=== PATIENT | female | born 1930 | race Caucasian/White ===

== ENCOUNTER → 2017-04-11 | Outpatient (CLI) | payer MEDICARE ==
[~2017-04-11] MED LIST: ANOR1AER INH; AUGM875T28 PO; CALCTAB68 PO; MELO7.5T7 PO; PRED10TA PO; PRED20TA PO; PROAAER10 INH
--- NOTE | 2017-04-11 10:18 | REP ---
PA and lateral chest: Comparison 03/19/2016. The lung douglas are hyperinflated, as previously compatible with COPD, requiring clinical confirmation. There are no infiltrates, effusions or masses. The patient is rotated. Cardiac size is normal. There is demineralization and kyphosis, unchanged. The irineo, mediastinum, and bony thorax are otherwise unremarkable and unchanged. Impression: There is no interval change. There are no acute cardiopulmonary findings. Chronic hyperinflation is again identified. Signed by Mati Domínguez MD 04/11/2017 10:10 A
== END ==
LOC: M RAD 09:26
PROVIDERS: ATTEND Internal Medicine Pulmonary Disease
DX: J44.9 Chronic obstructive pulmonary disease, unspecified (principal)

== ENCOUNTER → 2018-06-25 | Outpatient (REF) | payer MEDICARE | LOC: M LAB REF 18:24 | DX: D04.62 Carcinoma in situ of skin of left upper limb, including shoulder (principal); L57.0 Actinic keratosis | CPT/HCPCS: 88305 ==

== ENCOUNTER → 2019-01-24 | Outpatient (REF) | payer MEDICARE ==
[~2019-01-24] MED LIST changes: +PRED-351 PO; -PRED10TA PO
== END ==
LOC: M SFHCPLAZ 17:35
PROVIDERS: ATTEND Dermatology
DX: C44.612 Basal cell carcinoma of skin of right upper limb, including shoulder (principal); L82.0 Inflamed seborrheic keratosis

== ENCOUNTER 2019-02-02 14:08 | Emergency (ER) | payer MEDICARE ==
[~2019-02-02] VITALS: Ht 152.4 cm; Wt 50.0 kg
--- NOTE | 2019-02-02 14:58 | REP ---
Clinical: Trauma/injury. Technique: AP, lateral, bilateral oblique views of the left third digit. Findings: Swelling and underlying arthritic degenerative changes are appreciated. No obvious acute fracture or dislocation identified. Mild subluxation at the distal interphalangeal joint cannot be excluded and should be correlated with mechanism of injury. Impression: Swelling. No obvious acute fracture. Electronically Signed by Stevie Patel MD 02/02/2019 02:50 P
[2019-02-02 15:33] VITALS: BP 143/74
== END 2019-02-02 15:49 | disposition home or self-care (01) ==
LOC: M ED 14:08
DX: S60.222A Contusion of left hand, initial encounter (principal); W23.0XXA Caught, crushed, jammed, or pinched between moving objects, initial encounter; Y92.810 Car as the place of occurrence of the external cause; I95.9 Hypotension, unspecified; Z79.899 Other long term (current) drug therapy

== ENCOUNTER → 2019-06-10 | Outpatient (REF) | payer MEDICARE ==
[~2019-06-10] MED LIST changes: +ADVI200T17 PO; +AMIO200T PO; +DIGO0.123 PO; +ONDA-83 PO; +TRAM50TA2 PO; +VITACHTA PO; +XARE10TA PO; +XARE15TA PO
== END ==
LOC: M LAB REF 16:44
PROVIDERS: ATTEND Nurse Practitioner Adult Health
DX: E03.9 Hypothyroidism, unspecified (principal)

== ENCOUNTER → 2019-06-11 | Outpatient (REF) | payer MEDICARE ==
[~2019-06-11] MED LIST changes: -ADVI200T17 PO; -AMIO200T PO; -DIGO0.123 PO; -ONDA-83 PO; -TRAM50TA2 PO; -VITACHTA PO; -XARE10TA PO; -XARE15TA PO
== END ==
LOC: M SFHCPLAZ 10:04
PROVIDERS: ATTEND Dermatology
DX: C44.612 Basal cell carcinoma of skin of right upper limb, including shoulder (principal)

== ENCOUNTER 2019-08-07 01:29 | Inpatient (IN) | payer MEDICARE ==
[~2019-08-07] VITALS: Ht 152.4 cm; Wt 49.0 kg
[2019-08-07] MEDS ORDERED: NS 1,000 ML IV SCH (02:01)
[2019-08-07] MEDS ORDERED: ONDANSETRON 4MG/2ML VIAL (J2405) IV ONE (02:15)
[2019-08-07] MEDS ORDERED: MORPHINE 2 MG/ML 1ML VIAL (J2270) IV ONE (02:15)
[2019-08-07 02:34] LABS: BASO % 0.2 % (0.0-1.0); EOS % 0.1 % (0.0-3.0); HEMATOCRIT 38.1 % (36.0-47.0); LYMPH % 8.8 % (24.0-44.0); MEAN CORPUSCULAR HEMOGLOBIN 32.9 pg (27.0-33.0); MEAN CORPUSCULAR HGB CONC 31.5 g/dl (32.0-36.5); MEAN CORPUSCULAR VOLUME 104.4 fl (80.0-96.0); MONO # 0.6 10^3/uL (0.0-0.8); MONO % 5.2 % (0.0-5.0); NEUTROPHILS # 9.3 10^3/uL (1.5-8.5); NEUTROPHILS % 85.2 % (36.0-66.0); PLATELET COUNT, AUTOMATED 267 10^3/uL (150-450); RED BLOOD COUNT 3.65 10^6/uL (4.00-5.40)
[2019-08-07 02:45] LABS: INR 1.04; PROTHROMBIN TIME 13.3 SECONDS (11.8-14.0)
[2019-08-07 02:46] LABS: PARTIAL THROMBOPLASTIN TIME 22.4 SECONDS (25.0-38.4)
[2019-08-07] MEDS ORDERED: PRED20TA PO (02:52)
[2019-08-07] MEDS ORDERED: VITACHTA PO (02:52)
[2019-08-07] MEDS ORDERED: ANOR1AER INH (02:52)
[2019-08-07] MEDS ORDERED: ADVI200T17 PO (02:52)
[2019-08-07] MEDS ORDERED: AUGM875T28 PO (02:52)
[2019-08-07] MEDS ORDERED: PROAAER10 INH (02:52)
--- NOTE | 2019-08-07 02:58 | HPEPDOC ---
[facility] Medical History & Physical Date of Admission Aug 07, 2019 Date of Service: Aug 07, 2019 Primary Care Physician: Zandra John Attending Physician: KATTY GARCIA MD History and Physical TIME OF SERVICE: 3:10 AM CHIEF COMPLAINT: Fall HISTORY OF PRESENT ILLNESS: This is a 88 old female who had a fall early this morning while trying to get out of bed. Despite having a history of frequent falls she doesn't use a cane or walker to ambulate. She denies having dizziness, chest pain, or dizziness prior to the fall. She denies feeling short of breath or that her COPD may been acting up. REVIEW OF SYSTEMS: 12 point review of systems negative except as listed in HPI PAST MEDICAL/ SURGICAL HISTORY: COPD Chronic oxygen-dependent respiratory failure with dependence on 3 L. Denies history of CVA or TX. Status post hysterectomy. Status post bilateral cataract surgery SOCIAL HISTORY: Former smoker. Lives in [place] is currently in town visiting friends FAMILY HISTORY: Colon cancer CVD Triple negative Breast cancer ALLERGIES: Please see below. HOME MEDICATIONS: Please see below. PHYSICAL EXAMINATION: VITAL SIGNS: Please see below. GENERAL APPEARANCE: Slim build, well-developed, not in apparent distress HEENT: Normocephalic, atraumatic. Mucous members slightly dry CARDIOVASCULAR: Regular rate and rhythm. No murmurs, rubs or gallops LUNGS: Clear to auscultation bilaterally on room air ABDOMEN:. Positive bowel sounds. Abdomen is soft and nontender on palpation MUSCULOSKELETAL:. Range of motion is intact in all 4 extremities except for the right hip where pain limits the range of motion NEUROLOGICAL: Cranial nerves II to 12 are grossly intact. Speech is not dysarthric PSYCHIATRIC: Alert and oriented, able to understand and follow commands. Patient is slightly lethargic after receiving morphine, but is able to give details about her health and her family history LABORATORY DATA: See below. IMAGING: X-ray of the hip there appears to be a right intertrochanteric hip fracture. The final report is pending Chest x-ray shows findings consistent with COPD but no acute process. The final report is pending ASSESSMENT: is an 88-year-old with a history of COPD & chronic oxygen dependence who will be admitted for management of a right hip fracture. PLAN: 1. Right hip fracture, possibly due to mechanical fall The patient denies having any prodromal symptoms prior to the fall. She has a history of unsteady gait and doesn't use any walking aids. The troponin was within normal limits Plan: Admit medical floor /NPO after midnight w IVF for surgery possibly tomorrow / Ortho consult ( contacted ) / PT consult / pain control with morphine 2. Osteoporosis She has osteoporosis by definition because of the fragility fracture Plan: she will need work-up to r/o secondary causes of Osteoporosis which can be done on an out pt basis prior to selecting medications 3.Chronic COPD is stable Plan: Continue home meds including prednisone 4 .Preoperative Assessment Revised Cardiac Index to asses risk of MACE from surgery = 0 points Plan: since she is >65 yrs old we will check a pro-BNP if it is <300 she will not need additional testing prior to surgery / c/w home dose of predinsone / hold Advil PM DVT prophylaxis with SCDs. Disposition likely home versus SNIF after mild turbinate stay Vital Signs Vital Signs Date Time Temp Pulse Resp B/P (MAP) Pulse Ox O2 Delivery O2 Flow Rate FiO2 08/07/19 01:58 98.2 80 18 95 Room Air 08/07/19 01:54 147/102 Laboratory Data Labs 24H Laboratory Tests 2 08/07/19 02:26: Immature Granulocyte % (Auto) 0.5, Neutrophils (%) (Auto) 85.2H, Lymphocytes (%) (Auto) 8.8L, Monocytes (%) (Auto) 5.2H, Eosinophils (%) (Auto) 0.1, Basophils (%) (Auto) 0.2, Neutrophils # (Auto) 9.3H, Lymphocytes # (Auto) 1.0L, Monocytes # (Auto) 0.6, Eosinophils # (Auto) 0.0, Basophils # (Auto) 0.0, Nucleated Red Blood Cells % (auto) 0.0, Prothrombin Time 13.3, Prothromb Time International Ratio 1.04, Activated Partial Thromboplast Time 22.4L CBC/BMP Laboratory Tests 08/07/19 02:26 Home Medications Scheduled Amoxicillin/Potassium Clav (Augmentin 875-125 Tablet) 1 Each Tablet, 875 MG PO BID Multivitamins (Child Chew Vitamin) 1 Each Tab.chew, 1 TAB PO DAILY Prednisone (Prednisone) 20 Mg Tablet, 20 MG PO TID 0700, 1200, 1700: 4 DOSES LEFT Umeclidinium Brm/Vilanterol Tr (Anoro Ellipta 62.5-25 Mcg INH) 1 Each Blst.w.dev, 1 PUFF INH DAILY Scheduled PRN Albuterol Sulfate (Proair Hfa) 8.5 Gm Hfa.aer.ad, 2 PUFF INH QID PRN for SHORTNESS OF BREATH Ibuprofen/Diphenhydramine Cit (Advil Pm Caplet) 1 Each Tablet, 2 TAB PO QHS PRN for PAIN/SLEEP Allergies Coded Allergies: codeine (Verified Allergy, Unknown, 08/07/19) A-FIB/CHADSVASC A-FIB History Current/History of A-Fib/PAF?: No Current PO Anticoag Therapy: No KATTY GARCIA MD Aug 07, 2019 02:58
[2019-08-07 03:02] LABS: BLOOD UREA NITROGEN 28 MG/DL (7-18); CARBON DIOXIDE LEVEL 30 MEQ/L (21-32); CHLORIDE LEVEL 105 MEQ/L (98-107); CK-MB VALUE MASS 1.7 NG/ML (<3.6); CPK CREATINE PHOSPHOKINASE 53 U/L (26-192); CREATININE FOR GFR 0.79 MG/DL (0.55-1.30); GLOMERULAR FILTRATION RATE > 60.0 (>32); GLUCOSE, FASTING 144 MG/DL (70-100); MB/CK RELATIVE INDEX 3.21 (< OR =4); POTASSIUM SERUM 4.7 MEQ/L (3.5-5.1); SODIUM LEVEL 140 MEQ/L (136-145); TROPONIN I < 0.02 NG/ML (< 0.10)
[2019-08-07 03:53] LABS: NT-PRO BNP 551 PG/ML (<450)
[2019-08-07 04:00] VITALS: BP 135/72
[2019-08-07] MEDS: D5W/0.9% SODIUM CHLORIDE 1,000 ML IV SCH (04:24)
[2019-08-07 05:45] VITALS: BP 133/73
[2019-08-07] MEDS ORDERED: ceFAZolin SOD 2 GM in IV 1 EA IV SCH (06:00)
[2019-08-07] MEDS: MORPHINE 2 MG/ML 1ML VIAL (J2270) IV PRN ×4 (06:06→20:19)
[2019-08-07] MEDS ORDERED: ALBUTEROL 90 MCG/ACT 8GM HFA INHALER INH PRN (07:00)
--- NOTE | 2019-08-07 07:45 | REP ---
Clinical: Preoperative assessment . Comparison: 04/11/2017 . Findings: The mediastinum and cardiac silhouette are stable and within normal limits for portable technique. The lung douglas demonstrate chronic COPD and interstitial changes without acute consolidation, effusion, or pneumothorax. Skeletal structures are intact. Impression: No acute cardiopulmonary process appreciated. Electronically Signed by Stevie Patel MD 08/07/2019 07:36 A
--- NOTE | 2019-08-07 07:52 | REP ---
Clinical: Trauma. Technique: Frontal view of the pelvis with neutral and cross-table lateral views of the right hip. Findings: There is an intertrochanteric fracture of the right proximal femur. No other fracture dislocation identified. Impression: Intertrochanteric fracture of the right femur. Electronically Signed by Stevie Patel MD 08/07/2019 07:44 A
--- NOTE | 2019-08-07 08:05 | REP ---
Clinical: Trauma. Technique: AP and cross-table lateral views of the right femur. Findings: Intertrochanteric fracture of the proximal femur noted on hip series. Visualized portions of the femur on current examination demonstrates age-related changes without further acute fracture or dislocation. Impression: Intertrochanteric fracture of the proximal femur noted on hip series. No further acute fracture or dislocation. Electronically Signed by Stevie Patel MD 08/07/2019 07:58 A
[2019-08-07] MEDS: predniSONE 20 MG TAB PO SCH ×3 (08:22→20:18)
[2019-08-07 08:50] LABS: BASO % 0.1 % (0.0-1.0); HEMATOCRIT 36.7 % (36.0-47.0); HEMOGLOBIN 11.7 g/dl (12.0-15.5); LYMPH # 1.7 10^3/uL (1.5-5.0); LYMPH % 8.6 % (24.0-44.0); MEAN CORPUSCULAR HEMOGLOBIN 33.3 pg (27.0-33.0); MEAN CORPUSCULAR HGB CONC 31.9 g/dl (32.0-36.5); MEAN CORPUSCULAR VOLUME 104.6 fl (80.0-96.0); MONO % 11.8 % (0.0-5.0); NEUTROPHILS # 15.5 10^3/uL (1.5-8.5); NEUTROPHILS % 78.8 % (36.0-66.0); PLATELET COUNT, AUTOMATED 264 10^3/uL (150-450); RED BLOOD COUNT 3.51 10^6/uL (4.00-5.40); WHITE BLOOD COUNT 19.7 10^3/uL (4.0-10.0)
[2019-08-07 09:17] LABS: BLOOD UREA NITROGEN 28 MG/DL (7-18); CALCIUM LEVEL 8.7 MG/DL (8.8-10.2); CARBON DIOXIDE LEVEL 33 MEQ/L (21-32); CHLORIDE LEVEL 108 MEQ/L (98-107); CREATININE FOR GFR 0.65 MG/DL (0.55-1.30); GLOMERULAR FILTRATION RATE > 60.0 (>32); GLUCOSE, FASTING 99 MG/DL (70-100); MAGNESIUM LEVEL 2.3 MG/DL (1.8-2.4); POTASSIUM SERUM 4.7 MEQ/L (3.5-5.1); SODIUM LEVEL 142 MEQ/L (136-145); TROPONIN I < 0.02 NG/ML (< 0.10)
[2019-08-07 10:06] LABS: MONO # 2.3 10^3/uL (0.0-0.8)
[2019-08-07 14:00] VITALS: BP 133/72
--- NOTE | 2019-08-07 15:40 | ECGEPIP ---
[facility] - ED Test Date: 2019-08-07 Pat Name: DORA LEVY Department: Room: [place] [address] Gender: Female Surgical Product Sales Consultant: MARIAMA : 1930 Requested By: Armand Lane Order Number: [id number] Reading MD: Heather Lind Measurements Intervals [place] Rate: 72 P: 82 SD: 141 QRS: 69 QRSD: 78 T: 64 QT: 363 QTc: 400 Interpretive Statements SINUS RHYTHM NSTTW abnormalities DECREASED RATE 12/17/14 Electronically Signed on 08-07-2019 15:40:43 EST by Heather Lind
[2019-08-07] MEDS: PERCOCET 5MG/325MG TAB PO PRN (17:25)
--- NOTE | 2019-08-07 19:53 | IPNPDOC ---
Text Note Date of Service The patient was seen on 08/07/19. NOTE SUBJECTIVE: Patient is seen at bedside. She is an elderly and frail-appearing female who does have a history of frequent falls at home. She was admitted last night secondary to a mechanical fall with resulting right hip fracture. She is going to be going to the OR tomorrow with Dr. Reagan. Today she states that her pain is much better controlled. She denies any shortness of breath, dizziness, palpitations, chest pain, nausea, vomiting, or diarrhea. She has no acute stacey rns. OBJECTIVE: Vital signs: Please see below. General: Slim build, well-developed, not in apparent distress HEENT: Normocephalic, atraumatic. Mucous members slightly dry Heart: Regular rate and rhythm. No murmurs, rubs or gallops Lungs: Clear to auscultation bilaterally on room air Abdomen: Positive bowel sounds. Abdomen is soft and nontender on palpation Extremities: Range of motion is intact in all 4 extremities except for the right hip where pain limits the range of motion Neuro: Cranial nerves II to 12 are grossly intact. Speech is not dysarthric Psych: Alert and oriented, able to understand and follow commands. Patient is slightly lethargic after receiving morphine, but is able to give details about her health and her family history ASSESSMENT: Ms. Corea is an 88-year-old female admitted for management of right hip fracture. She'll be going to the OR tomorrow with Dr. Reagan PLAN: 1. Right hip fracture, secondary to mechanical fall. She'll be going to the OR tomorrow with Dr. Reagan, nothing by mouth after midnight with gentle IV fluid hydration. Pain medications and anticoagulation per orthopedics. 2. Osteoporosis. She has osteoporosis by definition because of the fragility fracture. Outpatient workup of secondary causes should be done outpatient prior to selecting medications. May be secondary to chronic prednisone use 3. COPD, currently stable. Continue home prednisone 4. Preoperative Assessment. Patient was medically optimized for surgery at minimal risk DVT prophylaxis: TEDS and sequentials, anticoagulation per orthopedics Disposition: likely home versus SNF. VS,Fishbone, I+O VS, Fishbone, I+O Laboratory Tests 08/07/19 02:26 08/07/19 07:54 Vital Signs Date Time Temp Pulse Resp B/P (MAP) Pulse Ox O2 Delivery O2 Flow Rate FiO2 08/07/19 19:32 16 08/07/19 17:25 Room Air 08/07/19 14:00 98.3 74 133/72 (92) 96 08/07/19 09:00 2.0 I&O- Last 24 Hours up to 6 AM 08/07/19 06:00 Intake Total 0 ml Output Total 0 ml Balance 0 ml GME ATTESTATION GME ATTESTATION My faculty preceptor for this patient encounter was physically present during the encounter and was fully available. All aspects of the patient interview, examination, medical decision making process, and medical care plan development were reviewed and approved by the faculty preceptor. The faculty preceptor is aware and concurs with the plan as stated in the body of this note and will attest to such by his/her cosignature. ATTENDING NOTE I, Lex Brand, have independently examined this patient and performed my own physical exam, as well as reviewed the documentation and edited where necessary. I have discussed in detail with the resident / student the findings and plan of treatment as documented by the resident / student and edited their note. I agree with their findings and treatment plan and have edited their documentation. I will continue to follow the patient during this hospital stay. STARR MAGALLANES D.O. Aug 07, 2019 19:53 LEX BRAND MD Aug 08, 2019 07:32
[2019-08-07 21:23] VITALS: BP 133/72
[2019-08-08] MEDS: MORPHINE 2 MG/ML 1ML VIAL (J2270) IV PRN (01:30)
[2019-08-08] MEDS: D5W/0.9% SODIUM CHLORIDE 1,000 ML IV SCH ×2 (01:30→17:23)
[2019-08-08 05:03] VITALS: BP 141/76
[2019-08-08 06:37] LABS: HEMATOCRIT 37.9 % (36.0-47.0); MEAN CORPUSCULAR HEMOGLOBIN 33.3 pg (27.0-33.0); MEAN CORPUSCULAR HGB CONC 31.7 g/dl (32.0-36.5); MEAN CORPUSCULAR VOLUME 105.3 fl (80.0-96.0); PLATELET COUNT, AUTOMATED 239 10^3/uL (150-450); WHITE BLOOD COUNT 12.2 10^3/uL (4.0-10.0)
[2019-08-08 06:53] LABS: BLOOD UREA NITROGEN 27 MG/DL (7-18); CALCIUM LEVEL 8.5 MG/DL (8.8-10.2); CARBON DIOXIDE LEVEL 30 MEQ/L (21-32); CHLORIDE LEVEL 104 MEQ/L (98-107); CREATININE FOR GFR 0.56 MG/DL (0.55-1.30); GLOMERULAR FILTRATION RATE > 60.0 (>32); GLUCOSE, FASTING 138 MG/DL (70-100); POTASSIUM SERUM 4.5 MEQ/L (3.5-5.1); SODIUM LEVEL 138 MEQ/L (136-145)
--- NOTE | 2019-08-08 07:56 | HPE ---
DATE OF ADMISSION: 08/07/2019 CHIEF COMPLAINT: Right hip fracture. HISTORY OF PRESENT ILLNESS: This 88-year-old female had a fall while trying to get out of bed. She is an independent ambulator. She denied dizziness, chest pain, shortness of breath leading up to or surrounding the fall. PAST MEDICAL HISTORY: Chronic obstructive pulmonary artery disease (COPD) on 3 liters of oxygen. Denies history of CVA or myocardial infarction (ID). Post hysterectomy. Post bilateral cataract surgery. HOME MEDICATIONS: - amoxicillin/potassium clavulanic - multivitamins - prednisone - Anoro Ellipta inhaler - as needed albuterol - ibuprofen ALLERGIES: CODEINE. SOCIAL HISTORY: Former smoker. Lives in [place], currently in town visiting friends. PHYSICAL EXAM: Well appearing 88-year-old female. She is thin overall. She is lying supine in bed. She is alert and oriented times three. She is quite pleasant. Vital signs: Stable. Temperature 98.1, blood pressure 133/72, pulse rate 70, respiratory rate 16, 95% on 2 liters. Lower extremities are warm and well perfused. Good pedal pulses and she is able to wiggle her toes, dorsiflex, and plantar flex her feet. Normal sensation of feet. No pain at the knee or distal to the hip. LABORATORY EXAMINATION: Revealed hemoglobin of 12. INR 1.04 and APTT 22.4. Hip x-rays revealed a intertrochanteric hip fracture of the right side four-part intertrochanteric fracture with extension to the greater trochanter. ASSESSMENT AND PLAN: We will plan for open reduction internal fixation of the right hip with long cephalomedullary nail. We will do this within the next 48 hours. She will be fasting in the meantime on bedrest and actively managed by the hospitalist service. I explained pros, cons, risks, benefits of going ahead with surgery and signed consent form today and marked the right hip. Risks of doing nothing and surgery were discussed include but not limited to infection, pain, stiffness, neurovascular injury, delayed mal or nonunion, anesthetic complications, blood clots and . HOLDEN
--- NOTE | 2019-08-08 08:13 | IPNPDOC ---
Text Note Date of Service The patient was seen on 08/08/19. NOTE SUBJECTIVE: Patient is seen at bedside. She is an elderly and frail-appearing female who does have a history of frequent falls at home. She was admitted 08/06/19 secondary to a mechanical fall with resulting right hip fracture. She is going to be going to the OR this afternoon with Dr. Reagan. Today she states that her pain is much better controlled. She denies any shortness of breath, dizziness, palpitations, chest pain, nausea, vomiting, or diarrhea. She has no acute concerns. OBJECTIVE: Vital signs: Please see below. General: Slim build, well-developed, not in apparent distress HEENT: Normocephalic, atraumatic. Mucous members slightly dry Heart: Regular rate and rhythm. No murmurs, rubs or gallops Lungs: Clear to auscultation bilaterally on room air Abdomen: Positive bowel sounds. Abdomen is soft and nontender on palpation Extremities: No clubbing, cyanosis, or bilateral lower extremity edema. Neuro: Cranial nerves II to 12 are grossly intact. Sensation intact throughout. Psych: Alert and oriented, answers questions appropriately ASSESSMENT: Ms. Corea is an 88-year-old female admitted for management of right hip fracture. She'll be going to the OR today with Dr. Reagan PLAN: 1. Right hip fracture, secondary to mechanical fall. She'll be going to the OR today with Dr. Reagan, nothing by mouth with gentle IV fluid hydration. Pain medications and anticoagulation per orthopedics. 2. Osteoporosis. She has osteoporosis by definition because of the fragility fracture. Outpatient workup of secondary causes should be done outpatient prior to selecting medications. May be secondary to chronic prednisone use 3. COPD, currently stable. Continue home prednisone 4. Preoperative Assessment. Patient was medically optimized for surgery at [facility] risk DVT prophylaxis: TEDS and sequentials, anticoagulation per orthopedics Disposition: likely home versus SNF. VS,Fishbone, I+O VS, Fishbone, I+O Laboratory Tests 08/08/19 06:22 Vital Signs Date Time Temp Pulse Resp B/P (MAP) Pulse Ox O2 Delivery O2 Flow Rate FiO2 08/08/19 05:03 98.0 70 18 141/76 (97) 94 Nasal Cannula 3.0 I&O- Last 24 Hours up to 6 AM 08/08/19 06:00 Intake Total 460 ml Output Total 1150 ml Balance -690 ml GME ATTESTATION GME ATTESTATION My faculty preceptor for this patient encounter was physically present during the encounter and was fully available. All aspects of the patient interview, examination, medical decision making process, and medical care plan development were reviewed and approved by the faculty preceptor. The faculty preceptor is aware and concurs with the plan as stated in the body of this note and will attest to such by his/her cosignature. ATTENDING NOTE I, Mateo Brand, have independently examined this patient and performed my own physical exam, as well as reviewed the documentation and edited where necessary. I have discussed in detail with the resident / student the findings and plan of treatment as documented by the resident / student and edited their note. I agree with their findings and treatment plan and have edited their documentation. I will continue to follow the patient during this hospital stay. STARR MAGALLANES D.O. Aug 08, 2019 08:13 MATEO BRAND MD Aug 08, 2019 13:17
[2019-08-08] MEDS: PERCOCET 5MG/325MG TAB PO PRN (09:07)
[2019-08-08] MEDS: predniSONE 20 MG TAB PO SCH ×3 (09:07→22:07)
[2019-08-08] MEDS ORDERED: TRANEXAMIC ACID 100 MG/ML 10ML VIAL As Ordered ONE (13:26)
[2019-08-08] MEDS ORDERED: ceFAZolin 2 GM/D5W 50 ML IV BAG (J0690 PER 500MG) As Ordered ONE (13:40)
[2019-08-08] MEDS ORDERED: ePHEDrine SULFATE 25 MG/5 ML(5MG/ML) SYRINGE As Ordered ONE (14:20)
[2019-08-08] MEDS ORDERED: KETAMINE HCL 200 MG/20 ML VIAL As Ordered ONE (14:20)
[2019-08-08] MEDS ORDERED: MIDAZOLAM INJ 2 MG/2 ML VIAL (J2250) As Ordered ONE (14:20)
[2019-08-08] MEDS ORDERED: BUPIVACAINE/DEXTROSE 0.75% 2 ML AMP As Ordered ONE (14:20)
[2019-08-08] MEDS ORDERED: ceFAZolin 1GM INJ (J0690 PER 500MG) As Ordered ONE (14:20)
[2019-08-08] MEDS ORDERED: PROPOFOL 200 MG/20 ML VIAL As Ordered ONE (14:20)
[2019-08-08] MEDS ORDERED: PHENYLephrine HCL 500 MCG/5 ML (100MCG/ML) SYRINGE (J2370) As Ordered ONE (14:21)
[2019-08-08] MEDS ORDERED: ONDANSETRON 4MG/2ML VIAL (J2405) As Ordered ONE (15:47)
[2019-08-08] MEDS ORDERED: fentaNYL 100 MCG/2 ML INJECTION (J3010) As Ordered ONE (15:49)
[2019-08-08] MEDS: fentaNYL 100 MCG/2 ML INJECTION (J3010) IV PRN ×3 (15:51→17:23)
[2019-08-08] MEDS ORDERED: METOCLOPRAMIDE INJ 10MG/2ML VIAL (J2765) As Ordered ONE (16:06)
[2019-08-08] MEDS ORDERED: ONDANSETRON 4MG/2ML VIAL (J2405) IV PRN ×2 (16:30→16:45)
[2019-08-08] MEDS ORDERED: oxyCODONE 5MG TAB PO PRN (16:30)
[2019-08-08] MEDS ORDERED: LR 1,000 ML IV SCH (16:30)
[2019-08-08] MEDS ORDERED: oxyCODONE 5MG TAB As Ordered ONE (16:37)
--- NOTE | 2019-08-08 16:43 | RO ---
DATE OF PROCEDURE: 08/08/2019 PREOPERATIVE DIAGNOSIS: Right hip fracture. POSTOPERATIVE DIAGNOSIS: Right hip fracture (intertrochanteric). PLANNED PROCEDURE: Right hip intramedullary (IM) nail. PROCEDURE PERFORMED: Right hip intramedullary (IM) nail, (open reduction internal fixation). SURGEON: Dr. Colin Reagan DIRECTOR OF REGIONAL SALES: None. NATURAL RESOURCE MANAGER: Dr. Wilson TYPE OF ANESTHETIC: Spinal anesthetic. OPERATIVE PREAMBLE: This 88-year-old female had a mechanical fall. She was found to have a right hip intertrochanteric hip fracture. We talked about the pros, cons, risks, and benefits of doing nothing versus open reduction internal fixation in the form of IM nail. I reiterated these risks in holding. She wished to go ahead, and we proceeded with surgery. DESCRIPTION OF PROCEDURE: The patient was brought to the operating theater. They administered a spinal anesthetic. Two grams IV Ancef and 2 grams of IV tranexamic acid were administered. She was placed supine on the fracture table. Right leg in traction, left leg scissored down in extension and appropriately padded and attached using Coban to the post in the middle. All bony prominences were padded. Brad Hugger was used. Peroneal post was placed and appropriately padded. Leg was placed in traction, external rotation, then brought into internal rotation. AP and lateral radiographs were taken to confirm the reduction, was appropriate. Leg was prepped and draped in the usual sterile fashion. Prep solution was allowed to thoroughly dry before placing a shower curtain-style drape. Preoperative time-out was performed to confirm the site, the patient and the surgery. Began by making a small 2 inch incision centered three fingerbreadths to the level of the greater trochanter. I carried the dissection down through skin and subcutaneous tissue. I used a partially threaded 3.2 mm guidewire to achieve the starting point at the tip of the greater trochanter on both AP and lateral radiographs, aiming down towards the level of the lesser trochanter and in line with the femur on the lateral radiograph. I used the entry reamer, using the soft tissue protector. I then passed a ball tip guidewire down to the distal aspect of the femur, center-center on AP and lateral radiographs. Removed the soft tissue protector. This measured 380 mm. I reamed up sequentially to a 12.5 mm size reamer. Nail was selected, a TFN-A 300 mm right, 11 mm diameter, 125 degrees angle. This was seated down distally. 125 mm drop down guide was then used in a percutaneous technique using, again, a small 1-inch incision to center the guide on the lateral aspect of the femur. Guidewire was passed center-center again in femoral head and neck and down to subchondral bone of the femoral head. This was confirmed on both AP and lateral radiographs, as well as using near-far fluoroscopy technique. Depth of the wire measured 90 mm, so I took 5 mm less than that, reamed to an 85 and inserted an 85 mm helical blade down to appropriate depth. The nail was locked proximally and then backed off a quarter turn to allow for compression. Ball tip guidewire was then removed prior to placing the helical blade and guidewire. I then turned my attention distally. I used perfect lower sioux technique and percutaneous stab incisions to insert two distal screws into the more proximal locking hole and then another into the oblong hole. These were both 38 mm long, 5.0 mm in diameter screws. I took final repeat radiographs, AP and lateral, at the knee and proximally. Guide was removed. Traction was taken off as well to allow for some compression across the fracture site, which was only slightly gapped medially. Wounds were thoroughly irrigated. Subcutaneous tissues were closed with interrupted #2-0 Vicryl sutures. Skin was closed with julia. Skin was cleaned with a wet and dry dressing followed by application of Xeroform and gauze dressings. Patient was transferred off the operating table, taken to the postanesthetic care unit in stable condition. All sponge, needle, and instrument counts were correct. No complications. Estimated blood loss: 100 mL. PLAN: The patient is to be weightbearing as tolerated. To see the physical therapy (PT) team while in hospital to ensure safety for mobilization and discharge home. Venous thromboembolism (VTE) prophylaxis as well as pain control will be achieved while on the scott. VTE prophylaxis will be continued for the typical 35 days after surgery. Followup will be in 2 weeks' time to discontinue julia.
[2019-08-08] MEDS ORDERED: MORPHINE 2 MG/ML 1ML VIAL (J2270) IV PRN (16:45)
[2019-08-08] MEDS: LR 1,000 ML IV SCH (16:45)
[2019-08-08] MEDS ORDERED: ACETAMINOPHEN TAB 650MG DOSE (2X325MG) PO PRN (16:45)
[2019-08-08] MEDS ORDERED: PERCOCET 5MG/325MG TAB PO PRN ×2 (16:45→17:45)
[2019-08-08] MEDS ORDERED: ONDANSETRON 4 MG TAB (S0181) PO PRN (16:45)
--- NOTE | 2019-08-08 16:46 | REP ---
Clinical: Status post intramedullary femoral julio césar placement for proximal femur fracture. Technique: Intraoperative fluoroscopic imaging using portable C-arm technique. Findings: The patient is status post intramedullary julio césar placement through the right femur. Total fluoroscopic time 3 minutes 32 seconds (25.35 mGy). Impression: Status post intramedullary julio césar placement to the right femur. Electronically Signed by Stevie Patel MD 08/08/2019 04:37 P
[2019-08-08] MEDS ORDERED: METOCLOPRAMIDE INJ 10MG/2ML VIAL (J2765) IV PRN (17:00)
[2019-08-08 17:30] VITALS: BP 153/85
[2019-08-08 18:00] VITALS: BP 145/82
[2019-08-08 19:00] VITALS: BP 137/78
[2019-08-08] MEDS ORDERED: METOPROLOL TART 12.5 MG PER 1/2 TAB As Ordered ONE (20:45)
[2019-08-08] MEDS ORDERED: METOPROLOL TART 12.5 MG PER 1/2 TAB PO ONE ×2 (20:45→23:00)
[2019-08-08 22:32] VITALS: BP 113/67
[2019-08-08] MEDS ORDERED: METOPROLOL 5 MG/5 ML VIAL IV STA (22:50)
[2019-08-08] MEDS ORDERED: METOPROLOL 5 MG/5 ML VIAL As Ordered ONE (22:50)
[2019-08-09] MEDS ORDERED: KETOROLAC 30 MG/ML VIAL (J1885) IV ONE
[2019-08-09] MEDS ORDERED: ACETAMINOPHEN 500 MG TAB PO PRN
--- NOTE | 2019-08-09 02:56 | IPNPDOC ---
Date Seen The patient was seen on 08/09/19. Progress Note I was called at bedside at 20:26 due to patient heart rate being erratic fluctuating from a low-dose of 50s to high as of 150. Patient does not have a history of any atrial fibrillation or irregular rhythms in the past. Bedside exam was consistent with irregularly irregular tachycardic rate with normotensive blood pressure. Patient did endorsing palpitations but no lightheadedness and dizziness. She does complaint of having right-sided hip pain s/p the ORIF earlier this evening. EKG at bedside showed A. fib with RVR with a rate of ~155. Blood pressure at the time was normotensive. Toprol tartrate by mouth 12.5 mg was given at bedside. Patient then was then transferred to PCU for telemetry monitoring. Roughly around 20:45 on telemetry A. fib with RVR continue to persist. 5 mg Lopressor IV was pushed over 2 minutes and another dose of 12.5 metoprolol tartrate by mouth was given. Patient tolerated both medications well. And around 1:26 AM she converted back to sinus rhythm. We'll continue to monitor the patient on telemetry. Need to consider possible anticoagulation on discharge for this episode of paroxysmal Afib chest such as reduced dose of Eliquis 2.5 mg twice a day. VS, I&O, 24H, Silas Vital Signs/I&O Vital Signs Date Time Temp Pulse Resp B/P (MAP) Pulse Ox O2 Delivery O2 Flow Rate FiO2 08/08/19 23:22 149 110/70 08/08/19 20:25 3.0 08/08/19 19:00 97.5 15 96 Nasal Cannula I&O- Last 24 Hours up to 6 AM 08/09/19 06:00 Intake Total 420 ml Output Total 300 ml Balance 120 ml Laboratory Data 24H LABS Laboratory Tests 2 08/08/19 06:22: Nucleated Red Blood Cells % (auto) 0.0, Anion Gap 4L, Glomerular Filtration Rate > 60.0, Calcium Level 8.5L CBC/BMP Laboratory Tests 08/08/19 06:22 CHAMP CROW DO Aug 09, 2019 02:56
[2019-08-09 04:00] VITALS: BP 116/65
[2019-08-09] MEDS: LR 1,000 ML IV SCH (05:55)
[2019-08-09] MEDS: ceFAZolin SOD 2 GM in IV 1 EA IV SCH ×2 (06:19→15:20)
[2019-08-09] MEDS: ACETAMINOPHEN 500 MG TAB PO SCH ×2 (06:20→15:20)
[2019-08-09 07:50] LABS: BASO % 0.1 % (0.0-1.0); EOS % 0.1 % (0.0-3.0); HEMATOCRIT 32.8 % (36.0-47.0); HEMOGLOBIN 10.6 g/dl (12.0-15.5); LYMPH # 2.1 10^3/uL (1.5-5.0); LYMPH % 17.6 % (24.0-44.0); MEAN CORPUSCULAR HEMOGLOBIN 32.7 pg (27.0-33.0); MEAN CORPUSCULAR HGB CONC 32.3 g/dl (32.0-36.5); MEAN CORPUSCULAR VOLUME 101.2 fl (80.0-96.0); MONO % 17.9 % (0.0-5.0); NEUTROPHILS # 7.8 10^3/uL (1.5-8.5); NEUTROPHILS % 64.1 % (36.0-66.0); PLATELET COUNT, AUTOMATED 231 10^3/uL (150-450); RED BLOOD COUNT 3.24 10^6/uL (4.00-5.40); WHITE BLOOD COUNT 12.2 10^3/uL (4.0-10.0)
[2019-08-09 08:00] VITALS: BP 117/69
[2019-08-09 08:06] LABS: BLOOD UREA NITROGEN 27 MG/DL (7-18); CALCIUM LEVEL 8.3 MG/DL (8.8-10.2); CARBON DIOXIDE LEVEL 29 MEQ/L (21-32); CHLORIDE LEVEL 100 MEQ/L (98-107); GLOMERULAR FILTRATION RATE > 60.0 (>32); GLUCOSE, FASTING 139 MG/DL (70-100); MAGNESIUM LEVEL 2.1 MG/DL (1.8-2.4); POTASSIUM SERUM 4.3 MEQ/L (3.5-5.1); SODIUM LEVEL 135 MEQ/L (136-145)
--- NOTE | 2019-08-09 08:11 | IPN ---
DATE: 08/09/2019 CHIEF COMPLAINT: Postop day #1 right hip IM nail for hip fracture. HISTORY OF PRESENT ILLNESS: This 88-year-old female underwent IM nail for right intertrochanteric hip fracture yesterday. Overnight she has experienced some hallucinations and acute delirium. As such we were holding in holding any kind of narcotic medications. She is now in PCU for new onset atrial fibrillation. PHYSICAL EXAMINATION: She is well-appearing 88-year-old female. Temperature 97.7. Blood pressure 116/65. Pulse 70 but irregular, 94% on 4 liters nasal prongs. She is alert. She arouses easily. She is aware of her name and date of . She knows what month it is. She is aware of what she was . Dressings were dry and clean. No obvious bruising or swelling but the leg normal. Feet are warm and well perfused. Good pedal pulses. She is able to wiggle her toes. Dorsiflex and plantarflex the foot. Laboratory examination was pending from this morning. ASSESSMENT/PLAN: This is an 88-year-old female, we will hold her narcotic medications along with the nursing staff and hospitalist we will attempt to reorient her and aid with her acute delirium. Management of her new onset atrial fibrillation up to the hospitalist team who I thank greatly for their care quinine greatly further care. We will have the PT team assess her and gentle mobilization.
[2019-08-09 08:16] LABS: FREE T4 0.98 NG/DL (0.76-1.46); THYROID STIMULATING HORMONE 4.84 uIU/ML (0.358-3.740)
[2019-08-09 08:25] LABS: MONO # 2.2 10^3/uL (0.0-0.8)
--- NOTE | 2019-08-09 10:11 | REP ---
Two-view chest: 08/09/2019. Indication: Dyspnea. Arrhythmia. Comparison: 04/11/2017. Findings: Pulmonary hyperinflation and chronic interstitial changes are redemonstrated. Diffuse osteopenia is noted. No focal airspace consolidation is present. Small left upper lobe nodule is stable. There is no pleural effusion or pneumothorax. The cardiomediastinal silhouette is unremarkable save for atherosclerotic disease. Right greater than left glenohumeral degenerative sequelae are present. Impression: No acute cardiopulmonary process. Electronically Signed by Jered Hobbs DO 08/09/2019 10:03 A
--- NOTE | 2019-08-09 10:25 | ECGEPIP ---
[facility] Test Date: 2019-08-08 Pat Name: DORA LEVY Department: Room: [place] [address] Gender: Female Tagman: NORIS : 1930 Requested By: CHAMP Reid Order Number: [id number] Reading MD: Camilo Azar Measurements Intervals [place] Rate: 166 P: MA: 0 QRS: 59 QRSD: 72 T: -36 QT: 228 QTc: 380 Interpretive Statements ATRIAL FIBRILLATION WITH RAPID VENTRICULAR RESPONSE NONSPECIFIC ST & T-WAVE ABNORMALITY Previous tracing done 08-07-19 at 0223 showed sinus rhythm Electronically Signed on 08-09-2019 10:25:09 EST by Camilo Azar
--- NOTE | 2019-08-09 10:28 | ECGEPIP ---
[facility] Test Date: 2019-08-09 Pat Name: DORA LEVY Department: Room: [place] [address] Gender: Female Application Developer: SARY : 1930 Requested By: STARR MAGALLANES D.O. Order Number: [id number] Reading MD: Camilo Azar Measurements Intervals [place] Rate: 69 P: 72 [place]: 136 QRS: 66 QRSD: 82 T: 61 QT: 374 QTc: 403 Interpretive Statements SINUS RHYTHM POSSIBLE LEFT ATRIAL ENLARGEMENT Nonspecific ST-T wave abnormalities Baseline artifact Rate decreased and rhythm normalized from tracing done 08-08-19 Electronically Signed on 08-09-2019 10:27:38 EST by Camilo Azar
[2019-08-09] MEDS: predniSONE 20 MG TAB PO SCH ×3 (10:39→20:24)
[2019-08-09] MEDS: MOM 30ML SUSPENSION UDC PO SCH (10:39)
[2019-08-09] MEDS: SENOKOT S TAB PO SCH ×2 (10:39→20:23)
[2019-08-09] MEDS: MIRALAX *UNIT DOSE* 17GM PACKET PO SCH (10:39)
[2019-08-09] MEDS: traMADol 50 MG TAB PO PRN ×2 (10:41→20:23)
[2019-08-09 12:00] VITALS: BP 143/66
--- NOTE | 2019-08-09 14:22 | IPNPDOC ---
Text Note Date of Service The patient was seen on 08/09/19. NOTE SUBJECTIVE: Patient is seen at bedside in PCU. She is an elderly and frail-appearing female who does have a history of frequent falls at home. She was admitted 08/06/19 secondary to a mechanical fall with resulting right hip fracture. She went to the OR on the afternoon of 08/08/[address] Reagan. Overnight, she developed an erratic, fluctuating heart rate with a rate between 50-150. EKG was read as atrial fibrillation with RVR at a rate of 155. She was given Toprol by mouth 12.5 mg and transferred to PCU for telemetry monitoring. 5 mg of Lopressor was pushed over 2 minutes, and another dose of 12.5 Toprol was given by mouth. She converted back into sinus rhythm at 1:26 AM. This morning, she denies any shortness of breath, dizziness, palpitations, chest pain, nausea, vomiting, or diarrhea. She has no acute concerns, except that she did not sleep very well during the night due to pain from her surgery. OBJECTIVE: Vital signs: Please see below. General: Slim build, well-developed, not in apparent distress HEENT: Normocephalic, atraumatic. Mucous membranes moist Heart: Regular rate and rhythm. No murmurs, rubs or gallops Lungs: Clear to auscultation bilaterally; no wheezes, rhonchi, or rales Abdomen: Positive bowel sounds. Abdomen is soft and nontender on palpation Extremities: No clubbing, cyanosis, or bilateral lower extremity edema. Neuro: Cranial nerves II to XII are grossly intact. Sensation intact throughout. Psych: Alert and oriented, answers questions appropriately ASSESSMENT: Ms. Corea is an 88-year-old female admitted for management of right hip fracture. She is postop day 1 status post right hip intramedullary nail/open reduction internal fixation. PLAN: 1. Right hip fracture, secondary to mechanical fall. She is postop day #1, status post right hip intramedullary nail/open reduction internal fixation. Pain medications and anticoagulation per orthopedics. 2. Proximal atrial fibrillation, with RVR overnight. Responded well to beta davida. Needs cardiac workup for atrial fibrillation, though the most likely cause may be from having surgery yesterday. EKG discussed with Dr. Colindres, who agrees atrial fibrillation with RVR. Chest x-ray shows hyperinflated lung douglas with chronic interstitial changes, diffuse osteopenia, left upper lobe nodule which is stable, and atherosclerotic disease (no acute cardiopulmonary process appreciated). Sodium was mildly hyponatremic, otherwise electrolytes were in balance. She is not hyperthyroid, however may be subclinical hypothyroidism (TSH should be rechecked outpatient after acute inflammatory process from surgery is over). Echocardiogram is pending, should there be structural heart disease evident, she may benefit from either being on lifelong anticoagulation (chads-v ac: 4 points, has bled: 1 point) or low-dose beta davida for rate control. 3. Osteoporosis. She has osteoporosis by definition because of the fragility fracture. Outpatient workup of secondary causes should be done outpatient prior to selecting medications. May be secondary to chronic prednisone use. 4. COPD, currently stable. Continue home prednisone 5. Preoperative Assessment. Patient was medically optimized for surgery at minimal risk DVT prophylaxis: TEDS and sequentials, anticoagulation per orthopedics Disposition: likely home versus SNF. VS,Fishbone, I+O VS, Fishbone, I+O Laboratory Tests 08/09/19 07:28 Vital Signs Date Time Temp Pulse Resp B/P (MAP) Pulse Ox O2 Delivery O2 Flow Rate FiO2 08/09/19 11:11 18 08/09/19 08:00 97.9 68 117/69 (85) 95 Nasal Cannula 4.0 I&O- Last 24 Hours up to 6 AM 08/09/19 06:00 Intake Total 795 ml Output Total 650 ml Balance 145 ml GME ATTESTATION GME ATTESTATION My faculty preceptor for this patient encounter was physically present during the encounter and was fully available. All aspects of the patient interview, examination, medical decision making process, and medical care plan development were reviewed and approved by the faculty preceptor. The faculty preceptor is aware and concurs with the plan as stated in the body of this note and will attest to such by his/her cosignature. ATTENDING NOTE I, Mateo Brand, have independently examined this patient and performed my own physical exam, as well as reviewed the documentation and edited where necessary. I have discussed in detail with the resident / student the findings and plan of treatment as documented by the resident / student and edited their note. I agree with their findings and treatment plan and have edited their documentation. I will continue to follow the patient during this hospital stay. STARR MAGALLANES D.O. Aug 09, 2019 14:22 MATEO BRAND MD Aug 09, 2019 14:59
[2019-08-09 16:00] VITALS: BP 127/65
[2019-08-09] MEDS: RIVAROXABAN 10 MG TAB (XARELTO) PO SCH (17:47)
[2019-08-09] MEDS ORDERED: atenoloL 25 MG TAB PO ONE (18:15)
--- NOTE | 2019-08-09 18:46 | ECHO ---
DATE OF PROCEDURE: 08/09/2019 Date of : 1930 Age: 88 REFERRING PHYSICIAN: Mateo Brand MD PATIENT LOCATION: Room 3223 REASON FOR STUDY: Cardiac arrhythmias. 2D MEASUREMENTS: IVS: 0.9 cm LV: 3.2 cm LVPW: 0.9 cm LA: 2.8 cm Aorta: 3.0 cm IVC: 1.7 cm DOPPLER MEASUREMENTS: Peak velocity across the aortic valve: 1.5 m/s Mitral E: 0.86, Mitral A: 0.72 with a ratio of 1.2 Maximum tricuspid valve velocity: 3.0 m/s 2D COMMENTS: 1. Normal left ventricular size, wall thickness, and normal global left ventricular systolic function. The estimated left ventricular systolic ejection fraction is 60-65%. 2. Normal left atrium. The right atrium appeared to be mildly enlarged as well as the right ventricle. The right ventricular free wall seems to be moving well. 3. The atrial septum appeared to be normal without evidence of defect or shunt. 4. Normal aortic root. 5. No pericardial effusion seen. 6. Mildly calcified aortic valve, leaflet excursion appeared to be normal. Mildly calcified mitral annulus with normal anterior mitral valve leaflet motion. Normal tricuspid valve and pulmonic valve. The proximal pulmonary artery branches were not well visualized. 7. The inferior vena cava was normal in size, central venous pressure might be normal. DOPPLER: It detects mild aortic regurgitation, trace mitral regurgitation, moderate tricuspid regurgitation, and trace pulmonic regurgitation. The calculated pulmonary artery systolic pressure varies between 40 and 50 mmHg. Abnormal relaxation pattern was noted across the mitral valve annulus consistent with features of grade 2 left ventricular diastolic dysfunction, left ventricular end-diastolic pressure might be elevated. IMPRESSION 1. Normal global left ventricular systolic function. There are some features of grade 2 left ventricular diastolic dysfunction. 2. Aortic valve sclerosis with trivial aortic stenosis and mild aortic regurgitation. 3. Mitral annulus calcification with trace mitral regurgitation. 4. Moderate tricuspid regurgitation with moderate pulmonary hypertension and mildly enlarged right atrium. 5. Trace pulmonic regurgitation noted.
[2019-08-09 20:00] VITALS: BP 133/70
[2019-08-10] VITALS (11 sets, daily range): BP systolic 90–166; BP diastolic 60–90
[2019-08-10] MEDS: ACETAMINOPHEN 500 MG TAB PO SCH ×5 (00:21→22:00)
[2019-08-10] MEDS: traMADol 50 MG TAB PO PRN ×3 (00:21→18:37)
[2019-08-10] MEDS ORDERED: QUEtiapine FUMARATE 12.5 MG HALF-TAB PO ONE ×2 (01:30→05:45)
--- NOTE | 2019-08-10 06:47 | IPNPDOC ---
Text Note Date of Service The patient was seen on 08/10/19. NOTE SUBJECTIVE: Patient is seen at bedside. She is an elderly and frail-appearing female who does have a history of frequent falls at home. She was admitted 08/06/19 secondary to a mechanical fall with resulting right hip fracture. She went to the OR on the afternoon of 08/08/[address] Reagan. Overnight, she had trouble sleeping, and was trying to leave. She was disorient ed and had experiencing altered attention. She required 25 mg of Seroquel in order to sleep. This morning, she denies any shortness of breath, dizziness, palpitations, chest pain, nausea, vomiting, or diarrhea. She has no acute concerns, except that she did not sleep very well during the night and feels somewhat disoriented. OBJECTIVE: Vital signs: Please see below. General: Slim build, well-developed, not in apparent distress HEENT: Normocephalic, atraumatic. Mucous membranes dry Heart: Regular rate and rhythm. No murmurs, rubs or gallops Lungs: Clear to auscultation bilaterally; no wheezes, rhonchi, or rales Abdomen: Positive bowel sounds. Abdomen is soft and nontender on palpation Extremities: No clubbing, cyanosis, or bilateral lower extremity edema. Neuro: Cranial nerves II to XII are grossly intact. Sensation intact throughout. Muscle strength 5 out of 5. Patient is oriented to herself, and knows that she is in the hospital, but thinks the year is 1990. Psych: Alert and oriented, answers questions appropriately ASSESSMENT: Ms. Corea is an 88-year-old female admitted for management of right hip fracture. She is postop day 2 status post right hip intramedullary nail/open reduction internal fixation. PLAN: 1. Right hip fracture, secondary to mechanical fall. She is postop day #2, status post right hip intramedullary nail/open reduction internal fixation. Pain medications and anticoagulation per orthopedics. 2. Proximal atrial fibrillation, with RVR overnight. Responded well to beta davida. Needs cardiac workup for atrial fibrillation, though the most likely ca use may be from having surgery yesterday. EKG discussed with Dr. Colindres, who agrees atrial fibrillation with RVR. Chest x-ray shows hyperinflated lung douglas with chronic interstitial changes, diffuse osteopenia, left upper lobe nodule which is stable, and atherosclerotic disease (no acute cardiopulmonary process appreciated). Sodium was mildly hyponatremic, otherwise electrolytes were in balance. She is not hyperthyroid, however may be subclinical hypothyroidism (TSH should be rechecked outpatient after acute inflammatory process from surgery is over). Echocardiogram shows normal left ventricular systolic function with some features of grade 2 left ventricular diastolic dysfunction, aortic valve sclerosis with trivial aortic stenosis and mild aortic regurgitation, mitral annulus calcification with trace mitral regurgitation, moderate tricuspid regurgitation with moderate pulmonary hypertension and mildly enlarged right atrium, and trace pulmonic regurgitation. NOTE: This afternoon she again went into Afib with RVR. -Digoxin .25 mg was given, as well as 5 mg Lopressor x3 (5 minutes apart); 2 more doses digoxin 0.125 mg ordered 6 hours apart, then daily digoxin 0.125 mg ordered -NS bolus also given -If blood pressure permits, may also consider oral metoprolol, atenolol 25 mg daily or diltiazem 3. Osteoporosis. She has osteoporosis by definition because of the fragility fracture. Outpatient workup of secondary causes should be done outpatient prior to selecting medications. May be secondary to prednisone use for COPD. 4. COPD, currently stable. Prednisone stopped today. 5. Preoperative Assessment. Patient was medically optimized for surgery at minimal risk 6. Acute delirium. Most likely related to recent surgery in the setting of mild dementia. Plan to ensure that calendars and clocks are within sight to reduce sensory deprivation, focus on maintaining adequate hydration and nutrition, enhancing mobility and range of motion, treating pain and discomfort, preventing skin breakdown, ameliorating incontinence, and minimizing the risk for aspiration pneumonitis. Will continue with Seroquel 25 mg daily at bedtime to promote sleep. May also use other antipsychotic agents for agitation, would not use benzodiazepines as she has tramadol ordered. DVT prophylaxis: TEDS and sequentials, anticoagulation per orthopedics Disposition: likely will need subacute rehabilitation VS,Fishbone, I+O VS, Fishbone, I+O Laboratory Tests 08/09/19 07:28 Vital Signs Date Time Temp Pulse Resp B/P (MAP) Pulse Ox O2 Delivery O2 Flow Rate FiO2 08/10/19 06:08 20 08/10/19 04:00 3.0 08/10/19 04:00 97.3 79 153/81 (105) 94 Nasal Cannula I&O- Last 24 Hours up to 6 AM 08/10/19 06:00 Intake Total 1175 ml Output Total 900 ml Balance 275 ml GME ATTESTATION GME ATTESTATION My faculty preceptor for this patient encounter was physically present during the encounter and was fully available. All aspects of the patient interview, examination, medical decision making process, and medical care plan development were reviewed and approved by the faculty preceptor. The faculty preceptor is aware and concurs with the plan as stated in the body of this note and will attest to such by his/her cosignature. ATTENDING NOTE I, Mateo Brand, have independently examined this patient and performed my own physical exam, as well as reviewed the documentation and edited where necessary. I have discussed in detail with the resident / student the findings and plan of treatment as documented by the resident / student and edited their note. I agree with their findings and treatment plan and have edited their documentation. I will continue to follow the patient during this hospital stay. Patient went into A. fib with RVR this afternoon - Was given metoprolol 5mg IV x 3 - Loading dose of Digoxin 250 mcg IV - Started IV fluid hydration - Will consider Diltiazem if rate does not improve within 1 hour STARR MAGALLANES D.O. Aug 10, 2019 06:47 MATEO BRAND MD Aug 10, 2019 15:28
[2019-08-10] MEDS ORDERED: ATENOLOL 12.5MG PER 1/2 TABLET PO SCH (09:00)
[2019-08-10] MEDS: MOM 30ML SUSPENSION UDC PO SCH (09:38)
[2019-08-10] MEDS: MIRALAX *UNIT DOSE* 17GM PACKET PO SCH (09:38)
[2019-08-10] MEDS: SENOKOT S TAB PO SCH ×2 (09:38→21:00)
[2019-08-10 12:10] LABS: BASO % 0.1 % (0.0-1.0); EOS % 0.1 % (0.0-3.0); HEMATOCRIT 31.4 % (36.0-47.0); LYMPH # 2.2 10^3/uL (1.5-5.0); LYMPH % 16.4 % (24.0-44.0); MEAN CORPUSCULAR HEMOGLOBIN 33.1 pg (27.0-33.0); MEAN CORPUSCULAR HGB CONC 31.8 g/dl (32.0-36.5); MONO % 17.7 % (0.0-5.0); NEUTROPHILS # 8.9 10^3/uL (1.5-8.5); NEUTROPHILS % 65.1 % (36.0-66.0); PLATELET COUNT, AUTOMATED 237 10^3/uL (150-450); RED BLOOD COUNT 3.02 10^6/uL (4.00-5.40); WHITE BLOOD COUNT 13.7 10^3/uL (4.0-10.0)
[2019-08-10 12:35] LABS: BLOOD UREA NITROGEN 24 MG/DL (7-18); CALCIUM LEVEL 8.4 MG/DL (8.8-10.2); CARBON DIOXIDE LEVEL 33 MEQ/L (21-32); CHLORIDE LEVEL 97 MEQ/L (98-107); CREATININE FOR GFR 0.64 MG/DL (0.55-1.30); GLOMERULAR FILTRATION RATE > 60.0 (>32); GLUCOSE, FASTING 105 MG/DL (70-100); MAGNESIUM LEVEL 2.3 MG/DL (1.8-2.4); POTASSIUM SERUM 3.9 MEQ/L (3.5-5.1); SODIUM LEVEL 136 MEQ/L (136-145)
[2019-08-10 12:39] LABS: MONO # 2.4 10^3/uL (0.0-0.8)
[2019-08-10] MEDS ORDERED: METOPROLOL 5 MG/5 ML VIAL As Ordered ONE (14:14)
[2019-08-10] MEDS ORDERED: DIGOXIN INJ 0.5 MG/2 ML AMP (J1160) IV STA ×2 (14:20→14:27)
[2019-08-10] MEDS ORDERED: NS 1,000 ML IV ONE (14:30)
[2019-08-10] MEDS ORDERED: METOPROLOL 5 MG/5 ML VIAL IV STA ×3 (14:38→14:52)
[2019-08-10 15:16] LABS: CK-MB VALUE MASS 4.3 NG/ML (<3.6); CPK CREATINE PHOSPHOKINASE 324 U/L (26-192); MB/CK RELATIVE INDEX 1.33 (< OR =4); TROPONIN I < 0.02 NG/ML (< 0.10)
[2019-08-10] MEDS ORDERED: HALOPERIDOL 5 MG/ML VIAL (J1630) IM STA (16:38)
[2019-08-10] MEDS ORDERED: QUEtiapine FUMARATE 25 MG TAB PO ONE (16:45)
[2019-08-10] MEDS ORDERED: HALOPERIDOL 5 MG/ML VIAL (J1630) IM ONE ×2 (16:45→20:15)
--- NOTE | 2019-08-10 17:06 | ECGEPIP ---
[facility] Test Date: 2019-08-10 Pat Name: DORA LEVY Department: Room: [place] [address] Gender: Female Tip Cutter: PEPE : 1930 Requested By: STARR MAGALLANES D.O. Order Number: [id number] Reading MD: Camilo Azar Measurements Intervals [place] Rate: 134 P: [place]: 0 QRS: 66 QRSD: 75 T: 10 QT: 275 QTc: 411 Interpretive Statements ATRIAL FIBRILLATION WITH RAPID VENTRICULAR RESPONSE NONSPECIFIC ST & T-WAVE ABNORMALITY Previous tracing done 08-09-19 showed sinus rhythm Electronically Signed on 08-10-2019 17:05:56 EST by Camilo Azar
[2019-08-10] MEDS: RIVAROXABAN 10 MG TAB (XARELTO) PO SCH (17:53)
[2019-08-10] MEDS ORDERED: METOPROLOL TART 12.5 MG PER 1/2 TAB PO SCH (18:00)
[2019-08-10] MEDS ORDERED: NS 1,000 ML IV SCH (18:15)
[2019-08-10] MEDS: DIGOXIN INJ 0.5 MG/2 ML AMP (J1160) IV SCH (19:03)
[2019-08-10] MEDS ORDERED: QUEtiapine FUMARATE 25 MG TAB PO SCH (21:00)
[2019-08-11] VITALS (17 sets, daily range): BP systolic 100–136; BP diastolic 54–80; O2SAT 71–99
[2019-08-11] MEDS: HALOPERIDOL 5 MG/ML VIAL (J1630) IV PRN ×2 (00:46→23:42)
[2019-08-11] MEDS: DIGOXIN INJ 0.5 MG/2 ML AMP (J1160) IV SCH (02:30)
[2019-08-11] MEDS ORDERED: fentaNYL 100 MCG/2 ML INJECTION (J3010) IV ONE (02:30)
[2019-08-11] MEDS: fentaNYL 100 MCG/2 ML INJECTION (J3010) IV PRN ×2 (05:32→08:03)
--- NOTE | 2019-08-11 05:33 | REPVR ---
PROCEDURE INFORMATION: Exam: XR Chest, 1 View Exam date and time: 08/11/2019 5:21 AM Age: 88 years old Clinical history: Other: Change in lung sounds, new onset crackles TECHNIQUE: Imaging protocol: XR of the chest Views: 1 view. COMPARISON: CR Chest, 2 view PA, Lat 08/09/2019 8:57 AM FINDINGS: Lungs: There is hyperinflation and hyperlucency of the lungs, consistent with COPD. There is architectural distortion in the bilateral upper lobes, likely due to scarring. There is bilateral apical pleural thickening. Pleural space: No pleural effusions are seen. Heart/Mediastinum: The heart is normal in size. Vasculature: There is prominence of the aortic knob. Bones/joints: The bones are osteopenic. IMPRESSION: Evidence of COPD. Bilateral upper lobe scarring. No significant interval change. Electronically signed by: Shirin Menon On 08/11/2019 05:33:25 AM
[2019-08-11] MEDS: ACETAMINOPHEN 500 MG TAB PO SCH ×5 (06:00→22:50)
[2019-08-11] MEDS ORDERED: TRAM50TA2 PO (06:09)
[2019-08-11] MEDS ORDERED: XARE10TA PO (06:09)
[2019-08-11 06:15] LABS: CK-MB VALUE MASS 6.9 NG/ML (<3.6); MB/CK RELATIVE INDEX 1.2 (< OR =4); TROPONIN I 0.02 NG/ML (< 0.10)
[2019-08-11] MEDS ORDERED: DIGOXIN INJ 0.5 MG/2 ML AMP (J1160) IV SCH (09:00)
[2019-08-11] MEDS: MIRALAX *UNIT DOSE* 17GM PACKET PO SCH ×2 (09:00→10:47)
[2019-08-11] MEDS: MOM 30ML SUSPENSION UDC PO SCH ×2 (09:00→10:47)
[2019-08-11 10:14] LABS: BASO % 0.1 % (0.0-1.0); EOS # 0.2 10^3/uL (0.0-0.5); EOS % 1.2 % (0.0-3.0); HEMATOCRIT 36.2 % (36.0-47.0); HEMOGLOBIN 11.5 g/dl (12.0-15.5); LYMPH # 2.5 10^3/uL (1.5-5.0); LYMPH % 14.2 % (24.0-44.0); MEAN CORPUSCULAR HGB CONC 31.8 g/dl (32.0-36.5); MONO % 12.3 % (0.0-5.0); NEUTROPHILS # 12.5 10^3/uL (1.5-8.5); NEUTROPHILS % 71.7 % (36.0-66.0); PLATELET COUNT, AUTOMATED 294 10^3/uL (150-450); RED BLOOD COUNT 3.48 10^6/uL (4.00-5.40); WHITE BLOOD COUNT 17.3 10^3/uL (4.0-10.0)
--- NOTE | 2019-08-11 10:23 | IPNPDOC ---
Text Note Date of Service The patient was seen on 08/11/19. NOTE Subjective: Patient was seen and examined at the bedside. Patient appears to be in pain. She remains confused. Overnight, patient had difficulty sleeping and required Haldol for her agitation/anxiety. Patient eventually perforated back into normal sinus rhythm at 3 AM and has remained in normal sinus rhythm. Objective: Vitals (See below) General: Lying in bed, appears to be in pain, Awake / Alert HEENT: NC, AT CVS: +S1S2 Lungs: Fair air entry b/l, no appreciable wheezing, rhonchi or rales Abdomen: Soft, ND, NT Extremities: - Edema, - Calf tenderness Assessment and plan: Right hip fracture - 2/2 Mechanical fall; s/p ORIF (POD #3) - s/p right hip intramedullary nail/open reduction internal fixation - Pain medications and anticoagulation per orthopedics; will increase dose at this time - c/w PT - will likely require subacute rehabilitation Paroxysmal atrial fibrillation - Currently, patient is in normal sinus rhythm that reverted at 3 AM this morning - Patient remains hemodynamically stable - ECHO 08/09: normal left ventricular systolic function with some features of grade 2 left ventricular diastolic dysfunction, aortic valve sclerosis with trivial aortic stenosis and mild aortic regurgitation, mitral annulus calcification with trace mitral regurgitation, moderate tricuspid regurgitation with moderate pulmonary hypertension and mildly enlarged right atrium, and trace pulmonic regurgitation. - Will continue with telemetry monitoring - s/p Metoprolol 5mg IV x3, Diltiazem 15 mg IV x 1, Digoxin loading - Continue with rate / rhythm control with diltiazem and digoxin - Will check Digoxin level in AM - c/w full anticoagulation with Xarelto Acute delirium on mild dementia - Patient likely has baseline level of mild dementia - Has been very confused while inpatient - Yesterday evening patient was combative - s/p Haldol - c/w Seroquel; dose has been increased Osteoporosis - Will likely require Calcium / Vitamin D supplementation - Will have outpatient follow up with PCP for possible DEXA scan COPD - Currently patient has no evidence of exacerbation - s/p Prednisone - c/w Inhaled therapy as ordered Constipation - c/w Bowel regimen as ordered DVT prophylaxis - c/w full anticoagulation as per orthopedic team Disposition: - Patient will likely will need subacute rehabilitation VS,[place], I+O VS, Fishbone, I+O Laboratory Tests 08/10/19 11:38 Vital Signs Date Time Temp Pulse Resp B/P (MAP) Pulse Ox O2 Delivery O2 Flow Rate FiO2 08/11/19 08:03 22 08/11/19 08:00 97.8 97 136/74 (94) 92 Nasal Cannula 3.0 I&O- Last 24 Hours up to 6 AM 08/11/19 06:00 Intake Total 2335 ml Output Total 1900 ml Balance 435 ml LEX JACOBO MD Aug 11, 2019 10:23
[2019-08-11 10:32] LABS: MONO # 2.1 10^3/uL (0.0-0.8)
[2019-08-11 10:42] LABS: ALBUMIN 3.3 GM/DL (3.2-5.2); ALT/SGPT 21 U/L (12-78); BILIRUBIN,TOTAL 1.1 MG/DL (0.2-1.0); BLOOD UREA NITROGEN 24 MG/DL (7-18); CALCIUM LEVEL 8.6 MG/DL (8.8-10.2); CARBON DIOXIDE LEVEL 30 MEQ/L (21-32); CHLORIDE LEVEL 103 MEQ/L (98-107); CREATININE FOR GFR 0.53 MG/DL (0.55-1.30); GLOMERULAR FILTRATION RATE > 60.0 (>32); GLUCOSE, FASTING 83 MG/DL (70-100); MAGNESIUM LEVEL 2.1 MG/DL (1.8-2.4); POTASSIUM SERUM 4.5 MEQ/L (3.5-5.1); SODIUM LEVEL 139 MEQ/L (136-145)
[2019-08-11] MEDS: QUEtiapine FUMARATE 25 MG TAB PO SCH ×2 (10:47→20:15)
[2019-08-11] MEDS: SENOKOT S TAB PO SCH ×2 (10:47→20:15)
[2019-08-11] MEDS: MORPHINE 2 MG/ML 1ML VIAL (J2270) IV PRN ×2 (12:45→21:28)
[2019-08-11 13:24] LABS: BASO % 0.1 % (0.0-1.0); EOS # 0.1 10^3/uL (0.0-0.5); EOS % 0.9 % (0.0-3.0); HEMATOCRIT 32.2 % (36.0-47.0); HEMOGLOBIN 10.2 g/dl (12.0-15.5); LYMPH # 1.8 10^3/uL (1.5-5.0); LYMPH % 13.3 % (24.0-44.0); MEAN CORPUSCULAR HEMOGLOBIN 33.3 pg (27.0-33.0); MEAN CORPUSCULAR HGB CONC 31.7 g/dl (32.0-36.5); MEAN CORPUSCULAR VOLUME 105.2 fl (80.0-96.0); MONO # 1.7 10^3/uL (0.0-0.8); MONO % 12.8 % (0.0-5.0); NEUTROPHILS # 9.8 10^3/uL (1.5-8.5); NEUTROPHILS % 72.5 % (36.0-66.0); PLATELET COUNT, AUTOMATED 244 10^3/uL (150-450); RED BLOOD COUNT 3.06 10^6/uL (4.00-5.40); WHITE BLOOD COUNT 13.5 10^3/uL (4.0-10.0)
[2019-08-11 13:41] LABS: BLOOD UREA NITROGEN 25 MG/DL (7-18); CALCIUM LEVEL 8.3 MG/DL (8.8-10.2); CARBON DIOXIDE LEVEL 31 MEQ/L (21-32); CHLORIDE LEVEL 103 MEQ/L (98-107); CREATININE FOR GFR 0.46 MG/DL (0.55-1.30); GLOMERULAR FILTRATION RATE > 60.0 (>32); GLUCOSE, FASTING 90 MG/DL (70-100); MAGNESIUM LEVEL 2.1 MG/DL (1.8-2.4); POTASSIUM SERUM 4.1 MEQ/L (3.5-5.1); SODIUM LEVEL 139 MEQ/L (136-145)
--- NOTE | 2019-08-11 13:58 | REP ---
AP LATERAL RIGHT HIP: 08/11/2019 COMPARISON: AP pelvis and right hip, 08/07/2019. CLINICAL HISTORY: Status post ORIF right hip. Three views are provided including an AP view which includes the entire distal femur. There is an intramedullary julio césar from the greater trochanter through the distal femoral diametaphysis. It has two fixation screws across the distal shaft of the femur. A blade paddle fixation device crosses the comminuted intertrochanteric hip fracture and corrects the varus deformity of the femoral head. I do not see evidence of femoral head or neck fracture. Displacement of the lesser trochanter from the original fracture is again seen; however, the alignment of the major fragments is much more anatomic. No other finding. Unreviewed
[2019-08-11] MEDS ORDERED: ISOVUE-370 76% 100ML VIAL (Q9967) As Ordered ONE (17:22)
[2019-08-11] MEDS: RIVAROXABAN 10 MG TAB (XARELTO) PO SCH (18:45)
[2019-08-11] MEDS: D5W/0.45% SODIUM CHLORIDE 1,000 ML IV SCH (18:45)
--- NOTE | 2019-08-11 19:05 | REPVR ---
PROCEDURE INFORMATION: Exam: CT Pelvis With Contrast Exam date and time: 08/11/2019 5:59 PM Age: 88 years old Clinical history: Hip pain; Right hip; Prior surgery; Surgery date: 3-7 days post-operative; Additional info: Evaluate R hip for effusion / possible infection TECHNIQUE: Imaging protocol: Computed tomography images of the pelvis with intravenous contrast. Radiation optimization: All CT scans at this facility use at least one of these dose optimization techniques: automated exposure control; mA and/or kV adjustment per patient size (includes targeted exams where dose is matched to clinical indication); or iterative reconstruction. Contrast material: ISOVUE 370; Contrast volume: 100 ml; Contrast route: IV; COMPARISON: CR Hip,AP,LAT to include Pelvis RIGHT 08/07/2019 2:14 AM FINDINGS: Stomach and bowel: Visualized small bowel and colon are unremarkable. Appendix: No evidence of appendicitis. Intraperitoneal space: There is a radiodense structure seen along the right pelvic sidewall which is only partially imaged and measures 6 x 9 x 7 cm. This could represent the inferior margin of the liver or other radiodense structure. There may be a minimal amount of fluid along the right iliacus muscle. There is soft tissue stranding overlying the right hip with some air bubbles with in and between the right gluteal muscles as well as a small seroma at the incision site series 201 image 44 measuring approximately 2.3 x 3.4 by 4.4 cm. This is a typical postoperative finding. There is stranding throughout the soft tissues of the thigh which may represent dependent edema. Skin thickening is seen along the medial thigh which could be due to cellulitis and there is edema and inflammation along the medial thigh musculature particularly the gracilis which may be associated patient's recent trauma this is not in the postoperative bed. Series 201 images 93-118. Lymph nodes: Unremarkable. No enlarged lymph nodes. Bladder: There is air in the urinary bladder possibly due to to a prior Donaldson catheter. Reproductive: Normal as visualized. Bones/joints: Right medullary julio césar with screw fixation distally and proximal compression screw crossing the intertrochanteric right femoral fracture. Hardware appears to be in good position. Soft tissues: See Intraperitoneal Space Finding. IMPRESSION: 1. The hardware appears to be in good position. There is a small seroma overlying the right hip superiorly which is a typical postoperative finding although infection of the fluid collection cannot be entirely excluded. 2. There is edema and/or inflammation along the medial upper thigh particularly along the gracilis which may have been injured at time of patient's fall. Electronically signed by: Rowan Giles On 08/11/2019 19:05:36 PM
[2019-08-11] MEDS ORDERED: NS 500 ML IV ONE (19:30)
[2019-08-11] MEDS ORDERED: DIGOXIN INJ 0.5 MG/2 ML AMP (J1160) IV ONE (19:45)
[2019-08-11] MEDS ORDERED: VANCOMYCIN HCL 1,000 MG, VIAL MATE ADAPTER 1 EACH in D5W 250 ML IV ONE (20:00)
--- NOTE | 2019-08-11 20:27 | PHACANCOPD ---
PHARMACY VANCOMYCIN DOSING Pt Demographics Demographics Patient Age:88 , Weight:48.400 , Gender: female Adjusted Body Weight Date: 08/11/19, Adjusted Body Weight: Kg Events Past 24 Hours Events Past 24 Hours: NO: Dialysis, Diuretic Therapy, Change in CrCl, Fever, Elevation in WBC, Pending Diagnostics, Pending Procedures, Other Vancomycin Vancomycin Target Ranges: 15-20 mcg/ml Vancomycin Load Y/N: Yes Load Dose Date Time Vancomycin Load Dose: 1000MG Date: 08-11 Time: 1999 Vancomycin Dose Date: 08/11/19. Current Vancomycin Dose: [750mg q24h] Intermittent Dosing?: No Labs Labs Item Value Date Time White Blood Count 13.5 10^3/uL H 08/11/19 1306 Creatinine 0.46 MG/DL L 08/11/19 1306 Blood Urea Nitrogen 25 MG/DL H 08/11/19 1306 Glomerular Filtration Rate > 60.0 08/11/19 1306 Vital Signs Label Value Date Time Patient Temperature 100.2 degrees F 08/11/19 1600 Temperature Source Temporal 08/11/19 1600 Micro Microbiology 08/11/19 Blood Culture, Received Pending 08/11/19 Blood Culture, Received Pending Creatinine Clearance Date:08/11/19. Creatinine Clearance: [~30]. Pending Labs Trough 12-10 @1900 Assessment and Plan Maintaining Current Dose?: Yes Reason for dose change: No Dose Change Pharmacist Note Pharmacist Note Date: 08/11/19. Pharmacist note:Will monitor and make adjustments as needed. [facility] Aug 11, 2019 20:27
[2019-08-11] MEDS: PIPERACILLIN/TAZOBACTAM SOD 2.25 GM in D5W MINI-BAG PLUS 50 ML IV SCH (22:49)
[2019-08-12] VITALS (8 sets, daily range): BP systolic 90–122; BP diastolic 52–67
[2019-08-12] MEDS ORDERED: DIGOXIN INJ 0.5 MG/2 ML AMP (J1160) IV ONE (01:45)
[2019-08-12] MEDS: PIPERACILLIN/TAZOBACTAM SOD 2.25 GM in D5W MINI-BAG PLUS 50 ML IV SCH ×4 (02:59→22:05)
[2019-08-12] MEDS: ACETAMINOPHEN 500 MG TAB PO SCH ×3 (06:10→22:06)
[2019-08-12 07:40] LABS: HEMATOCRIT 28.5 % (36.0-47.0); HEMOGLOBIN 9.4 g/dl (12.0-15.5); MEAN CORPUSCULAR HEMOGLOBIN 33.3 pg (27.0-33.0); MEAN CORPUSCULAR VOLUME 101.1 fl (80.0-96.0); PLATELET COUNT, AUTOMATED 257 10^3/uL (150-450); RED BLOOD COUNT 2.82 10^6/uL (4.00-5.40); WHITE BLOOD COUNT 12.5 10^3/uL (4.0-10.0)
--- NOTE | 2019-08-12 07:46 | REP ---
CHEST AP AND LATERAL: 08/11/2019 at 5:58 PM. Comparison: AP portable chest 08/11/2019 at 5:08 AM, 08/09/2019, two-view chest. Clinical history: Evaluate for infiltrate. Findings: AP and lateral portable technique shows lungs hyperinflated with flattening of the diaphragms, increased AP diameter and prominent retrosternal clear space consistent with COPD. Some underlying fibrotic changes are noted. Heart size not grossly enlarged. Apical pleuroparenchymal scarring noted. No definite effusion, but a monitoring device overlies the CP angles on the lateral view. I see no air bronchograms or definite acute infiltrate. Calcified tortuous aorta. Bones demineralized. Impression: 1. Advanced COPD with emphysematous changes, fibrosis, apical pleuroparenchymal scarring and some pulmonary artery hypertension. 2. No gross cardiomegaly, chris edema, definite effusion or acute infiltrate. Electronically Signed by Kyle Botello MD 08/12/2019 07:50 A
[2019-08-12 09:14] LABS: BLOOD UREA NITROGEN 18 MG/DL (7-18); C REACTIVE PROTEIN QUANTITATIV 6.59 MG/DL (0.00-0.30); CALCIUM LEVEL 7.7 MG/DL (8.8-10.2); CARBON DIOXIDE LEVEL 29 MEQ/L (21-32); CHLORIDE LEVEL 102 MEQ/L (98-107); CREATININE FOR GFR 0.41 MG/DL (0.55-1.30); DIGOXIN LEVEL 1.5 NG/ML (0.5-2.0); GLOMERULAR FILTRATION RATE > 60.0 (>32); GLUCOSE, FASTING 130 MG/DL (70-100); POTASSIUM SERUM 3.7 MEQ/L (3.5-5.1); SODIUM LEVEL 137 MEQ/L (136-145)
[2019-08-12] MEDS: SENOKOT S TAB PO SCH ×2 (10:05→20:13)
[2019-08-12] MEDS: traMADol 50 MG TAB PO PRN (10:05)
[2019-08-12] MEDS: QUEtiapine FUMARATE 25 MG TAB PO SCH ×2 (10:06→20:13)
[2019-08-12] MEDS: MIRALAX *UNIT DOSE* 17GM PACKET PO SCH (10:07)
[2019-08-12] MEDS: MOM 30ML SUSPENSION UDC PO SCH (10:07)
[2019-08-12] MEDS: D5W/0.45% SODIUM CHLORIDE 1,000 ML IV SCH (10:08)
[2019-08-12] MEDS: DIGOXIN 0.125 MG TAB PO SCH (10:09)
--- NOTE | 2019-08-12 11:19 | IPNPDOC ---
Text Note Date of Service The patient was seen on 08/12/19. NOTE Subjective: Patient was seen and examined at the bedside. Patient does not appear to be in pain. She remains confused, and has had to have mitts placed so she does not hurt herself. Overnight, continued to be agitated and combative with difficulty sleeping, and required Haldol for her agitation/anxiety. Patient went back into atrial fibrillation with RVR overnight, and received IV digoxin. She eventually converted back into normal sinus rhythm and has remained in normal sinus rhythm since. She was started on empiric antibiotic treatment yesterday for a leukocytosis of 17,300. CT of the pelvis showed a small seroma at the incision site of the right hip measuring 2.3 x 3.4 x 4.4 cm, typical postoperative finding versus infection/cellulitis. Right medullary julio césar and screw fixation is in good position. 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 Objective: Vitals (See below) General: Lying in bed, mildly combative with the nursing staff HEENT: Eyes are clear, head is normocephalic, a dramatic. Mucous membranes continue to be somewhat dry, though improved from prior Heart: Regular rate and rhythm; no murmurs, gallops, or rubs Lungs: Clear to auscultation bilaterally; no wheezes, rhonchi, or rales Abdomen: Normoactive bowel sounds, nontender, nondistended Extremities: No lower extremity edema bilaterally, no calf tenderness bilaterally Neuro: Moves all 4 extremities spontaneously and without difficulty. Uncooperative for neuro exam. Psych: Perseverates about needing to sit up and go home Assessment: 88-year-old female admitted for management of a right hip fracture. Postop day #4 status post right hip intramedullary nail/open reduction internal fixation, complicated by acute delirium in the setting of mild dementia and new onset paroxysmal atrial fibrillation with RVR. Plan: Right hip fracture - 2/2 Mechanical fall; s/p ORIF (POD #4) - s/p right hip intramedullary nail/open reduction internal fixation - Pain medications and anticoagulation per orthopedics; will increase dose at this time - c/w PT - will likely require subacute rehabilitation Paroxysmal atrial fibrillation -Ray has jumped back up until 120-160, systolic is 80. IV fluid bolus with 1 L, Dr. Garcia from cardiology consulted, appreciate his help - ECHO 08/09: normal left ventricular systolic function with some features of grade 2 left ventricular diastolic dysfunction, aortic valve sclerosis with trivial aortic stenosis and mild aortic regurgitation, mitral annulus calcification with trace mitral regurgitation, moderate tricuspid regurgitation with moderate pulmonary hypertension and mildly enlarged right atrium, and trace pulmonic regurgitation. - Will continue with telemetry monitoring - s/p Metoprolol 5mg IV x3, Diltiazem 15 mg IV x 1, Digoxin loading - Continue with rate / rhythm control with diltiazem and digoxin - Digoxin level I.5 this morning - c/w full anticoagulation with Xarelto - Cardiology consult Acute delirium on mild dementia - Patient likely has baseline level of mild dementia - Has been very confused while inpatient - Yesterday evening patient was combative - continue to reduce sensory impairments, ensuring proper sleep patterns, encouraging adequate nutrition/hydration (IVF running 80 mL's per hour, ensure 3 times a day with meals) - c/w Seroquel (dose increased to 50 mg daily at bedtime); low-dose Haldol as needed for agitation and confusion Osteoporosis - Will likely require Calcium / Vitamin D supplementation - Will have outpatient follow up with PCP for possible DEXA scan COPD - Currently patient has no evidence of exacerbation - s/p Prednisone - c/w Inhaled therapy as ordered Constipation - c/w Bowel regimen as ordered DVT prophylaxis - c/w full anticoagulation as per orthopedic team Disposition: - Patient will likely will need subacute rehabilitation VS,Fishbone, I+O VS, Fishbone, I+O Laboratory Tests 08/11/19 13:06 08/12/19 07:23 Vital Signs Date Time Temp Pulse Resp B/P (MAP) Pulse Ox O2 Delivery O2 Flow Rate FiO2 08/12/19 10:09 80 08/12/19 10:05 20 08/12/19 08:00 97.9 116/57 (76) 93 Nasal Cannula 4.0 I&O- Last 24 Hours up to 6 AM 08/12/19 06:00 Intake Total 1510 ml Output Total 650 ml Balance 860 ml GME ATTESTATION GME ATTESTATION My faculty preceptor for this patient encounter was physically present during the encounter and was fully available. All aspects of the patient interview, examination, medical decision making process, and medical care plan development were reviewed and approved by the faculty preceptor. The faculty preceptor is aware and concurs with the plan as stated in the body of this note and will attest to such by his/her cosignature. ATTENDING NOTE I, Mateo Jacobo, have independently examined this patient and performed my own physical exam, as well as reviewed the documentation and edited where necessary. I have discussed in detail with the resident / student the findings and plan of treatment as documented by the resident / student and edited their note. I agree with their findings and treatment plan and have edited their documentation. I will continue to follow the patient during this hospital stay. STARR MAGALLANES D.O. Aug 12, 2019 11:19 MATEO JACOBO MD Aug 12, 2019 16:41
[2019-08-12] MEDS ORDERED: NS 1,000 ML IV ONE (11:45)
[2019-08-12] MEDS ORDERED: AMIODARONE HCL 150 MG in IV 1 EA IV STA (11:57)
[2019-08-12] MEDS: AMIODARONE 100MG TABLET (PACERONE) PO SCH ×3 (12:31→23:55)
[2019-08-12] MEDS ORDERED: NS 500 ML IV ONE (13:15)
[2019-08-12] MEDS: NS 1,000 ML IV SCH (14:07)
[2019-08-12] MEDS ORDERED: METOPROLOL TART 25 MG TABLET PO ONE (16:00)
--- NOTE | 2019-08-12 16:20 | CR.PDOC ---
General Date of Consultation: Aug 12, 2019 Referring Provider: LEX JACOBO MD Primary Care Physician: Zadnra John Consultation REASON FOR CONSULTATION/CHIEF COMPLAINT: Atrial fibrillation with RVR HISTORY OF PRESENT ILLNESS: 88-year-old female who presented to the hospital after falling while trying to get out of bed early in the morning on 08/07/19. The patient did sustain a right hip fracture and is status post ORIF of the right hip. On 08/08/19 the patient was noted to have an irregular tach yarrhythmia. According to documentation, the patient may have been experiencing palpitations at the time of this event. However, the patient currently states he does not recall having any chest pain, palpitations, shortness of breath during this episode. Patient was initially treated with beta blockers and responded well. However, over the subsequent days, she continued to have episodes of atrial fibrillation which did not respond to beta davida therapy. She was further treated with diltiazem and digoxin without effective rate control. Currently the patient denies any palpitations, chest pain, shortness of breath, or lightheadedness. She states she has never had any emesis, chest pain or palpitations. She does get short of breath which she attributes to her COPD. She states she has a history of orthostatic hypotension sometimes causes her to feel lightheaded when she is sitting to standing quickly. She denies any history of heart attack or stroke. Coronary risk factors include advanced age and smoking history. No evidence of chronic hypertension, dyslipidemia, diabetes, peripheral vascular disease, or relevant family history. ALLERGIES: Please see below. HOME MEDICATIONS: Please see below. PAST MEDICAL HISTORY: 1. COPD, on oxygen therapy at 3 L via nasal cannula at home PAST SURGICAL HISTORY: 1. Hysterectomy 2. Bilateral cataract surgeries FAMILY HISTORY: History of cardiovascular disease which patient is unable to provide specifics on. History of cancers in relatives including breast and colon cancer. SOCIAL HISTORY: She is and lives alone in [facility] for about half the year. She states she is able to take care of herself and does not need any help at home. She typically travels to [place] to stay with her daughters for the other half of the year. Former smoker from age 19 until 1991 about 1-2 packs a year, approximately 60-80 pack year history Currently drinks 1 glass of wine per night most nights. Currently drinks 2 cups of coffee each morning. Denies other caffeine intake such as tea and soda. REVIEW OF SYSTEMS: CONSTITUTIONAL: Denies fevers, chills, night sweats, fatigue, unexpected change in weight. HEENT: Denies change in vision, change in hearing. CARDIOVASCULAR: Endorses lightheadedness if she goes from sitting to standing quickly. Denies chest pain, palpitations, shortness of breath, edema. RESPIRATORY: Denies dyspnea, cough, wheezing. GASTROINTESTINAL: Denies nausea, vomiting, abdominal pain, diarrhea, consitpat ion, blood in stool. GENITOURINARY: Denies dysuria, urinary frequency, urinary urgency. SKIN: Denies rash, lesions. MUSCULOSKELETAL: Endorses pain over her right hip. NEUROLOGICAL: Denies headache, dizziness, weakness. PSYCHIATRIC: Denies change in mood. PHYSICAL EXAMINATION: VITAL SIGNS: Afebrile. Heart rate 120-140 bpm and irregular. Respirations 18. Blood pressure 126/80. O2 saturation 95% on 4 L via nasal cannula. GENERAL: Elderly woman lying comfortably in bed. Appears somewhat lethargic. No apparent respiratory distress. HEENT: Normocephalic, atraumatic, PERRLA, EOMI, moist mucous membranes, sclera anicteric, no conjunctival pallor. NECK: Supple, trachea midline, no lymphadenopathy, JVD at the level of the sternal angle CARDIOVASCULAR: Tachycardia with irregularly irregular rhythm, variable S1 and normal S2. No murmurs, rubs, or gallops appreciated RESPIRATORY: Clear to auscultation bilaterally with equal air entry bilaterally. No wheezing, rhonchi, or rales. ABDOMEN: Soft, nontender, nondistended, bowel sounds present, no masses or hepatosplenomegaly appreciated EXTREMITIES: No cyanosis or edema. Pulses 2+/4 in bilateral upper and lower extremities SKIN: [place], warm, dry NEUROLOGIC: Moves all 4 extremities spontaneously and without difficulty. No focal deficits appreciated PSYCHIATRIC: Mood and affect appropriate LABORATORY DATA: Please see below. Chest x-ray AP and lateral 08/11/2019: Chronic changes associated with advanced COPD, including emphysematous changes, fibrosis, apical pleural parenchymal scarring, and pulmonary artery hypertension. No cardiomegaly appreciated. No acute processes identified. EKG 08/10/2019: Atrial fibrillation with rapid ventricular response. Nonspecific ST and T wave abnormalities. Echocardiogram 08/09/2019: Normal global left ventricular systolic function with LVEF 60-65%. Some features of grade 2 left ventricular diastolic dysfunction. Aortic valve sclerosis with mild aortic regurgitation. Mitral annulus calcification with trace mitral regurgitation. Moderate tricuspid regurgitation with moderate pulmonary hypertension and mildly enlarged right atrium. ASSESSMENT/PLAN: 1. Paroxysmal atrial fibrillation with RVR: Is unclear how long the patient has had episodes of atrial fibrillation, this may have been going on intermittently being previously diagnosed. It is possible the patient had an episode of atrial fibrillation which caused the fall that led to her fracture, although there is no way to confirm this. Patient will be started on amiodarone and continued on digoxin for rhythm and rate control. Amiodarone be loaded at 200 mg 4 times a day with the plan to dose at 200 mg daily once her atrial fibrillation is under adequate control. In the meantime, further rate control can be achieved with supplemental beta blockers such as metoprolol tartrate, as needed. Would avoid calcium channel blockers for now as her blood pressure did not tolerate diltiazem well. Patient was also started on full dose of Xaralto for thromboembolism prophylaxis (CHADS-VASC score = 4). The patient was also counseled about the association of alcohol with atrial fibrillation and it was advised that the patient does not consume alcohol after discharge from the hospital. 2. CHF with grade 2 diastolic dysfunction: Patient likely has a degree of heart failure considering her echocardiogram findings and elevated BNP at 551. She li nacho has some right heart failure secondary to cor pulmonale considering her late stage COPD requiring home oxygen supplementation. Patient does not appear to be fluid overloaded on exam at this time. 3. Aortic valve sclerosis with mild aortic regurgitation / moderate tricuspid regurgitation / moderate pulmonary hypertension: No clear murmur auscultated on exam, although this was difficult to assess considering her tachycardia. Thank you for this consult. We will continue to follow the patient closely with you and appreciate the opportunity to participate in her care. Laboratory Data Labs 24H Laboratory Tests 2 08/12/19 07:23: Anion Gap 6L, Glomerular Filtration Rate > 60.0, Calcium Level 7.7L, Magnesium Level 2.0, C-Reactive Protein, Quantitative 6.59H, Digoxin Level 1.5 08/12/19 12:26: Lactic Acid Level 2.7*H CBC/BMP Laboratory Tests 08/12/19 07:23 Allergies Coded Allergies: codeine (Verified Allergy, Unknown, 08/07/19) Home Medications Scheduled Amoxicillin/Potassium Clav (Augmentin 875-125 Tablet) 1 Each Tablet, 875 MG PO BID, (Reported) Multivitamins (Child Chew Vitamin) 1 Each Tab.chew, 1 TAB PO DAILY, (Reported) Prednisone (Prednisone) 20 Mg Tablet, 20 MG PO TID, #10 (Reported) 0700, 1200, 1700: 4 DOSES LEFT Umeclidinium Brm/Vilanterol Tr (Anoro Ellipta 62.5-25 Mcg INH) 1 Each Blst.w.dev, 1 PUFF INH DAILY, (Reported) Scheduled PRN Albuterol Sulfate (Proair Hfa) 8.5 Gm Hfa.aer.ad, 2 PUFF INH QID PRN for SHORTNESS OF BREATH, (Reported) Ibuprofen/Diphenhydramine Cit (Advil Pm Caplet) 1 Each Tablet, 2 TAB PO QHS PRN for PAIN/SLEEP, (Reported) Tramadol HCl (Tramadol HCl) 50 Mg Tablet, 1-2 TAB PO Q4H PRN for PAIN, #30 NIKOLAI TRAN D.O. Aug 12, 2019 16:20
[2019-08-12] MEDS: RIVAROXABAN 15 MG TAB (XARELTO) PO SCH (18:08)
[2019-08-12] MEDS ORDERED: VANCOMYCIN HCL 750 MG, VIAL MATE ADAPTER 1 EACH in D5W 250 ML IV SCH (20:00)
[2019-08-13] MEDS: PIPERACILLIN/TAZOBACTAM SOD 2.25 GM in D5W MINI-BAG PLUS 50 ML IV SCH ×4 (03:05→21:04)
[2019-08-13] MEDS: NS 1,000 ML IV SCH ×3 (03:07→23:33)
[2019-08-13 04:00] VITALS: BP 134/89
[2019-08-13 05:09] LABS: BASO % 0.1 % (0.0-1.0); EOS # 1.1 10^3/uL (0.0-0.5); EOS % 11.5 % (0.0-3.0); HEMATOCRIT 26.2 % (36.0-47.0); HEMOGLOBIN 8.7 g/dl (12.0-15.5); LYMPH # 1.8 10^3/uL (1.5-5.0); LYMPH % 18.8 % (24.0-44.0); MEAN CORPUSCULAR HEMOGLOBIN 33.9 pg (27.0-33.0); MEAN CORPUSCULAR HGB CONC 33.2 g/dl (32.0-36.5); MEAN CORPUSCULAR VOLUME 101.9 fl (80.0-96.0); MONO # 1.4 10^3/uL (0.0-0.8); MONO % 14.2 % (0.0-5.0); NEUTROPHILS # 5.3 10^3/uL (1.5-8.5); PLATELET COUNT, AUTOMATED 242 10^3/uL (150-450); RED BLOOD COUNT 2.57 10^6/uL (4.00-5.40); WHITE BLOOD COUNT 9.7 10^3/uL (4.0-10.0)
[2019-08-13 05:31] LABS: BLOOD UREA NITROGEN 15 MG/DL (7-18); C REACTIVE PROTEIN QUANTITATIV 5.63 MG/DL (0.00-0.30); CALCIUM LEVEL 7.5 MG/DL (8.8-10.2); CARBON DIOXIDE LEVEL 28 MEQ/L (21-32); CHLORIDE LEVEL 108 MEQ/L (98-107); CREATININE FOR GFR 0.41 MG/DL (0.55-1.30); GLOMERULAR FILTRATION RATE > 60.0 (>32); GLUCOSE, FASTING 88 MG/DL (70-100); MAGNESIUM LEVEL 1.7 MG/DL (1.8-2.4); POTASSIUM SERUM 3.2 MEQ/L (3.5-5.1); SODIUM LEVEL 140 MEQ/L (136-145)
[2019-08-13] MEDS: AMIODARONE 100MG TABLET (PACERONE) PO SCH ×3 (05:50→17:24)
[2019-08-13] MEDS: ACETAMINOPHEN 500 MG TAB PO SCH ×4 (05:51→22:00)
[2019-08-13 08:00] VITALS: BP 108/59
--- NOTE | 2019-08-13 08:03 | IPNPDOC ---
Text Note Date of Service The patient was seen on 08/13/19. NOTE CARDIOLOGY PROGRESS NOTE: SUBJECTIVE: Brandie Kapadia states she is feeling well today and is wondering when she can go home. She denies any particular complaints today. She states she does feel somewhat short of breath at times and the oxygen helps with this. She denies any chest pain or palpitations. OBJECTIVE: VITAL SIGNS: Afebrile. Heart rate 71 bpm and regular. Respirations 16. Blood pressure 134/89. O2 saturation 90% on 3 L via nasal cannula. GENERAL: Elderly woman lying comfortably in bed. Appears somewhat tired. No apparent respiratory distress. NECK: JVD at the level of the sternal angle CARDIOVASCULAR: Regular rate and rhythm. Normal S1 and S2. III/ systolic ejection murmur RESPIRATORY: Clear to auscultation bilaterally with equal air entry bilaterally. No wheezing, rhonchi, or rales. ABDOMEN: Soft, nontender, nondistended, bowel sounds present EXTREMITIES: No cyanosis or edema. Pulses 2+/4 in bilateral upper and lower extremities AREA FIELD MANAGER: Sinus rhythm, rate stable in the 60-70s LABORATORY DATA: Lactic acid improved to 1.6 yesterday afternoon. This morning, hemoglobin trending down at 8.7. Normal white blood cell count and platelet count. Potassium is down to 3.2, Bicarbonate stable at 28, sodium stable at 140, BUN stable at 15, creatinine stable at 0.41 with estimated glomerular filtration rate >60. Fasting glucose stable at 88. Magnesium decreased to 1.7. CRP decreased to 5.63 ASSESSMENT/PLAN: 1. Paroxysmal atrial fibrillation with RVR: Patient has converted back to sinus rhythm as of yesterday afternoon. Continue with loading amiodarone with plan to switch to 200 mg daily dosing prior to discharge. Further rate control can be achieved with supplemental beta blockers such as metoprolol tartrate, as needed, if she does convert back to atrial fibrillation. Would continue to avoid calcium channel blockers for now as her blood pressure did not tolerate diltiazem well. Continue with Xaralto for thromboembolism prophylaxis (CHADS-VASC score = 4). The patient was also counseled about the association of alcohol with atrial fibrillation and it was advised that the patient does not consume alcohol after discharge from the hospital. 2. CHF with grade 2 diastolic dysfunction: Patient likely has a degree of heart failure considering her echocardiogram findings and elevated BNP at 551. She likely has some right heart failure secondary to cor pulmonale considering her late stage COPD requiring home oxygen supplementation. Patient does not appear to be fluid overloaded on exam at this time. 3. Aortic valve sclerosis with mild aortic regurgitation / moderate tricuspid regurgitation / moderate pulmonary hypertension: Systolic ejection murmur appreciated on examination, likely related to echocardiogram findings. NIKOLAI TRAN D.O. Aug 13, 2019 08:03
[2019-08-13] MEDS: MIRALAX *UNIT DOSE* 17GM PACKET PO SCH (09:49)
[2019-08-13] MEDS: MOM 30ML SUSPENSION UDC PO SCH (09:49)
[2019-08-13] MEDS: QUEtiapine FUMARATE 25 MG TAB PO SCH ×4 (09:50→21:25)
[2019-08-13] MEDS: SENOKOT S TAB PO SCH ×4 (09:50→21:25)
[2019-08-13] MEDS: DIGOXIN 0.125 MG TAB PO SCH (09:50)
--- NOTE | 2019-08-13 10:19 | IPNPDOC ---
Text Note Date of Service The patient was seen on 08/13/19. NOTE Subjective: Patient was seen and examined at the bedside. She is less confused this morning, she has also less combative. Nursing reports that she actually slept for a while overnight, she did not need any Haldol. Seroquel 50 mg daily at bedtime seems to work well for her. She has continued to be in sinus rhythm overnight. She was started on empiric antibiotic treatment 08/11/2019 for a leukocytosis of 17,300. CT of the pelvis showed a small seroma at the incision site of the right hip measuring 2.3 x 3.4 x 4.4 cm, typical postoperative finding versus in fection/cellulitis. Right medullary julio césar and screw fixation is in good position. 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 Objective: Vitals (See below) General: Lying in bed, mildly combative with the nursing staff HEENT: Eyes are clear, head is normocephalic, atraumatic. Mucous membranes are moist. Heart: Regular rate and rhythm; no murmurs, gallops, or rubs Lungs: Clear to auscultation bilaterally; no wheezes, rhonchi, or rales Abdomen: Normoactive bowel sounds, nontender, nondistended Extremities: No lower extremity edema bilaterally, no calf tenderness bilaterally Neuro: Moves all 4 extremities spontaneously and without difficulty. Sensation intact bilaterally Psych: Answers questions appropriately, still has mild perseveration about going home Assessment: 88-year-old female admitted for management of a right hip fracture. Postop day #5 status post right hip intramedullary nail/open reduction internal fixation, complicated by acute delirium in the setting of mild dementia and new onset paroxysmal atrial fibrillation with RVR. Plan: Right hip fracture - 2/2 Mechanical fall; s/p ORIF (POD #5) - s/p right hip intramedullary nail/open reduction internal fixation - Pain medications and anticoagulation per orthopedics: Continue with current regimen of morphine 2 mg every 4 hours when necessary pain and tramadol 50 mg every 4 hours when necessary - c/w PT - will need subacute rehabilitation Paroxysmal atrial fibrillation - Dr. Garcia from cardiology consulted, appreciate his help - ECHO 08/09: normal left ventricular systolic function with some features of grade 2 left ventricular diastolic dysfunction, aortic valve sclerosis with trivial aortic stenosis and mild aortic regurgitation, mitral annulus calcification with trace mitral regurgitation, moderate tricuspid regurgitation with moderate pulmonary hypertension and mildly enlarged right atrium, and trace pulmonic regurgitation. - Will continue with telemetry monitoring: Has been in sinus rhythm overnight - s/p Metoprolol 5mg IV x3, Diltiazem 15 mg IV x 1, Digoxin loading - Continue with rate / rhythm control with amiodarone and digoxin - Digoxin level 1.5 08/12/19 - c/w full anticoagulation with Xarelto Acute delirium on mild dementia - Patient likely has baseline level of mild dementia - Has been very confused while inpatient - This morning less combative - Continue to reduce sensory impairments, ensuring proper sleep patterns, encouraging adequate nutrition/hydration (IVF running 80 mL's per hour, ensure 3 times a day with meals) - c/w Seroquel (dose increased to 50 mg daily at bedtime); low-dose Haldol as needed for agitation and confusion Osteoporosis - Will likely require Calcium / Vitamin D supplementation - Will have outpatient follow up with PCP for possible DEXA scan COPD - Currently patient has no evidence of exacerbation - s/p Prednisone - c/w Inhaled therapy as ordered Constipation - c/w Bowel regimen as ordered DVT prophylaxis - c/w full anticoagulation as per orthopedic team Disposition: - Patient will likely will need subacute rehabilitation; potential DC in 24-48 hours if rate controlled with amiodarone and digoxin VS,Fishbone, I+O VS, Fishbone, I+O Laboratory Tests 08/13/19 04:55 Vital Signs Date Time Temp Pulse Resp B/P (MAP) Pulse Ox O2 Delivery O2 Flow Rate FiO2 08/13/19 09:50 75 08/13/19 08:00 97.2 16 108/59 (75) 98 Nasal Cannula 3.0 I&O- Last 24 Hours up to 6 AM 08/13/19 06:00 Intake Total 3595 ml Output Total 0 ml Balance 3595 ml GME ATTESTATION GME ATTESTATION My faculty preceptor for this patient encounter was physically present during the encounter and was fully available. All aspects of the patient interview, examination, medical decision making process, and medical care plan development were reviewed and approved by the faculty preceptor. The faculty preceptor is aware and concurs with the plan as stated in the body of this note and will at test to such by his/her cosignature. STARR MAGALLANES D.O. Aug 13, 2019 10:19
[2019-08-13 12:00] VITALS: BP 122/63
[2019-08-13] MEDS ORDERED: POTASSIUM CHLORIDE 10 MEQ SR TABLET PO ONE (14:00)
[2019-08-13] MEDS ORDERED: MAG SULF 1GM/100ML (MAG RUN) 1 GM in IV 1 EA IV ONE (14:00)
[2019-08-13 16:00] VITALS: BP 119/58
[2019-08-13] MEDS: RIVAROXABAN 15 MG TAB (XARELTO) PO SCH (17:42)
[2019-08-13 20:00] VITALS: BP 116/75
--- NOTE | 2019-08-13 21:03 | PHACANCOPD ---
PHARMACY VANCOMYCIN DOSING Pt Demographics Demographics Patient Age:88 , Weight:48.500 , Gender: female Adjusted Body Weight Date: 08/11/19, Adjusted Body Weight: Kg Events Past 24 Hours Events Past 24 Hours: NO: Dialysis, Diuretic Therapy, Change in CrCl, Fever, Elevation in WBC, Pending Diagnostics, Pending Procedures, Other Vancomycin Vancomycin indication: SSTI Vancomycin Target Ranges: 15-20 mcg/ml Vancomycin Load Y/N: Yes Load Dose Date Time Vancomycin Load Dose: 1000MG Date: 08-11 Time: 1999 Vancomycin Dose Date: 08/11/19. Current Vancomycin Dose: [ 1 gram q12h @22 ] Intermittent Dosing?: No Labs Labs Item Value Date Time White Blood Count 9.7 10^3/uL 08/13/19 0455 White Blood Count 12.5 10^3/uL H 08/12/19 0723 Creatinine 0.41 MG/DL L 08/13/19 0455 Glomerular Filtration Rate > 60.0 08/13/19 0455 Creatinine 0.41 MG/DL L 08/12/19 0723 Glomerular Filtration Rate > 60.0 08/12/19 0723 Lactic Acid Level 2.7 MMOL/L *H 08/12/19 1226 Lactic Acid Followup at 4 Hours 1.6 MMOL/L 08/12/19 1726 C-Reactive Protein, Quantitative 6.59 MG/DL H 08/12/19 0723 C-Reactive Protein, Quantitative 5.63 MG/DL H 08/13/19 0455 Vancomycin Level Trough 5.4 UG/ML L 08/13/19 1855 Vital Signs Label Value Date Time Patient Temperature 97.8 degrees F 08/13/19 1600 Temperature Source Temporal 08/13/19 1600 Patient Temperature 98.3 degrees F 08/13/19 1200 Temperature Source Temporal 08/13/19 1200 Patient Temperature 97.2 degrees F 08/13/19 0800 Temperature Source Temporal 08/13/19 0800 Micro Microbiology 08/11/19 Blood Culture - Preliminary, Resulted No Growth after 48 hours. All Specime... 08/11/19 Blood Culture - Preliminary, Resulted No Growth after 48 hours. All Specime... Creatinine Clearance Date:08/11/19. Creatinine Clearance: [ 76 mL/min ]. Pending Labs Trough 08-14 @2100 Assessment and Plan Maintaining Current Dose?: No Reason for dose change: Trough too low Pharmacist Note Pharmacist Note Date: 08/13/19: Pharmacist note: Patient presented to [facility] with a possible post operative wound infection of the left hip. A vancomycin trough from today returned as 5.4 mcg/dL, well below the goal trough of 15-20 mcg/dL. As a resul t, the patient's maintenance dosing was rescheduled to 1 gram of vancomycin every 12 hours starting tonight at 2200. A trough to monitor steady-state was scheduled for 08/14/19 @2100. We will continue to monitor and make adjustments as needed. Date: 08/11/19. Pharmacist note:Will monitor and make adjustments as needed. GARCIA MORRISON [facility]ARMAC[facility] Aug 13, 2019 21:03
[2019-08-13] MEDS: VANCOMYCIN HCL 1,000 MG, VIAL MATE ADAPTER 1 EACH in D5W 250 ML IV SCH (22:22)
[2019-08-13] MEDS: HALOPERIDOL 5 MG/ML VIAL (J1630) IV PRN (23:33)
[2019-08-13 23:59] VITALS: BP 158/77
[2019-08-14 03:15] VITALS: BP 109/70
[2019-08-14] MEDS: PIPERACILLIN/TAZOBACTAM SOD 2.25 GM in D5W MINI-BAG PLUS 50 ML IV SCH ×2 (03:47→09:58)
[2019-08-14 04:00] VITALS: BP 142/80
[2019-08-14] MEDS: AMIODARONE 100MG TABLET (PACERONE) PO SCH ×5 (05:44→23:32)
[2019-08-14] MEDS: ACETAMINOPHEN 500 MG TAB PO SCH ×3 (05:58→21:38)
[2019-08-14 06:00] LABS: BASO % 0.2 % (0.0-1.0); EOS # 0.8 10^3/uL (0.0-0.5); EOS % 6.2 % (0.0-3.0); HEMATOCRIT 32.7 % (36.0-47.0); HEMOGLOBIN 10.3 g/dl (12.0-15.5); LYMPH # 1.5 10^3/uL (1.5-5.0); LYMPH % 11.8 % (24.0-44.0); MEAN CORPUSCULAR HEMOGLOBIN 33.6 pg (27.0-33.0); MEAN CORPUSCULAR HGB CONC 31.5 g/dl (32.0-36.5); MEAN CORPUSCULAR VOLUME 106.5 fl (80.0-96.0); MONO # 1.5 10^3/uL (0.0-0.8); MONO % 12.5 % (0.0-5.0); NEUTROPHILS # 8.5 10^3/uL (1.5-8.5); NEUTROPHILS % 68.7 % (36.0-66.0); PLATELET COUNT, AUTOMATED 309 10^3/uL (150-450); RED BLOOD COUNT 3.07 10^6/uL (4.00-5.40); WHITE BLOOD COUNT 12.4 10^3/uL (4.0-10.0)
[2019-08-14 06:21] LABS: BLOOD UREA NITROGEN 15 MG/DL (7-18); C REACTIVE PROTEIN QUANTITATIV 3.95 MG/DL (0.00-0.30); CALCIUM LEVEL 7.5 MG/DL (8.8-10.2); CARBON DIOXIDE LEVEL 30 MEQ/L (21-32); CHLORIDE LEVEL 106 MEQ/L (98-107); CREATININE FOR GFR 0.43 MG/DL (0.55-1.30); GLOMERULAR FILTRATION RATE > 60.0 (>32); GLUCOSE, FASTING 90 MG/DL (70-100); POTASSIUM SERUM 3.6 MEQ/L (3.5-5.1); SODIUM LEVEL 139 MEQ/L (136-145)
[2019-08-14 08:00] VITALS: BP 118/56
--- NOTE | 2019-08-14 08:12 | IPNPDOC ---
Text Note Date of Service The patient was seen on 08/14/19. NOTE CARDIOLOGY PROGRESS NOTE: SUBJECTIVE: Brandie Kapadia states she is frustrated today. She states she is having some abdominal discomfort and difficulty with food getting stuck when she swallows. Pt states she did not take all of her medicine yesterday due to it sti cking in her throat when she swallows. She denies any chest pain, palpitations, or worsening shortness of breath today. OBJECTIVE: VITAL SIGNS: Afebrile. Heart rate 68 bpm and regular. Respirations 18. Blood pressure 142/80. O2 saturation 88% on 2 L via nasal cannula. GENERAL: Elderly woman lying comfortably in bed. Appears somewhat tired. No apparent respiratory distress. NECK: JVD at the level of the sternal angle CARDIOVASCULAR: Regular rate and rhythm. Normal S1 and S2. III/ systolic ejection murmur RESPIRATORY: Clear to auscultation bilaterally with equal air entry bilaterally. No wheezing, rhonchi, or rales. ABDOMEN: Soft, mildly tender to palpation throughout, nondistended, bowel sounds present EXTREMITIES: No cyanosis or edema. Pulses 2+/4 in bilateral upper and lower extremities [employer]: Currently sinus rhythm, rate stable in the 60-70s. She did convert back into atrial fibrillation yesterday evening for some duration. Of note, she did not take multiple doses of her amiodarone yesterday. LABORATORY DATA: This morning, hemoglobin improved to 10.3. White blood cell count increased to 12.4. Platelet count remains normal. Potassium is up to 3.6, Bicarbonate stable at 30, sodium stable at 139, BUN stable at 15, creatinine stable at 0.43 with estimated glomerular filtration rate >60. Fasting glucose stable at 90. Magnesium improved to 2.0. CRP decreased to 3.95. ASSESSMENT/PLAN: 1. Paroxysmal atrial fibrillation with RVR: Patient has converted back to sinus rhythm as of yesterday afternoon. Continue with loading amiodarone with plan to switch to 200 mg daily dosing prior to discharge. Continue with digoxin at 0.125 mg daily. Further rate control can be achieved with supplemental beta blockers such as metoprolol tartrate, as needed, if she does convert back to atrial fibrillation. Would continue to avoid calcium channel blockers for now as her blood pressure did not tolerate diltiazem well. Continue with Xaralto for thromboembolism prophylaxis (CHADS-VASC score = 4). The patient was also counseled about the association of alcohol with atrial fibrillation and it was advised that the patient does not consume alcohol after discharge from the hospital. 2. CHF with grade 2 diastolic dysfunction: Patient likely has a degree of heart failure considering her echocardiogram findings and elevated BNP at 551. She likely has some right heart failure secondary to cor pulmonale considering her late stage COPD requiring home oxygen supplementation. Patient does not appear to be fluid overloaded on exam at this time. 3. Aortic valve sclerosis with mild aortic regurgitation / moderate tricuspid regurgitation / moderate pulmonary hypertension: Systolic ejection murmur appreciated on examination, likely related to echocardiogram findings. 4. Dysphagia: Complicating care as pt has not taken multiple doses of amiodarone yesterday and subsequently converted back to atrial fibrillation for a period of time. She is currently back in sinus rhythm and did take her last dose of amiodarone. Primary team has ordered swallow evaluation, results pending. NIKOLAI TRAN D.O. Aug 14, 2019 08:12
[2019-08-14] MEDS: MOM 30ML SUSPENSION UDC PO SCH (09:00)
[2019-08-14] MEDS: MIRALAX *UNIT DOSE* 17GM PACKET PO SCH (09:00)
[2019-08-14] MEDS: SENOKOT S TAB PO SCH ×2 (09:00→21:00)
--- NOTE | 2019-08-14 09:39 | IPNPDOC ---
Text Note Date of Service The patient was seen on 08/14/19. NOTE Subjective: Patient was seen and examined at the bedside. Overnight she refused 3 doses of her amiodarone, because she did not like applesauce she was given with it. She went back into A. fib with RVR and spit her food out at the nursing staff. She is less combative this morning, and did take her amiodarone with ice cream. There was concern about her not being able to swallow very well overnight, so she will be evaluated by speech therapy today. Nursing reports that she did require Haldol last night because she refused her Seroquel since that was also given with applesauce. Objective: Vitals (See below) General: Lying in bed, cooperative this morning HEENT: Eyes are clear, head is normocephalic, atraumatic. Mucous membranes are moist. Heart: Regular rate and rhythm; no murmurs, gallops, or rubs Lungs: Clear to auscultation bilaterally; no wheezes, rhonchi, or rales Abdomen: Normoactive bowel sounds, nontender, nondistended Extremities: No lower extremity edema bilaterally, no calf tenderness bilaterally. Bruising noted along the operative site Neuro: Moves all 4 extremities spontaneously and without difficulty. Sensation intact bilaterally Psych: Answers questions appropriately, still has mild perseveration about going home Assessment: 88-year-old female admitted for management of a right hip fracture. Postop day #6 status post right hip intramedullary nail/open reduction internal fixation, complicated by acute delirium in the setting of mild dementia and new onset paroxysmal atrial fibrillation with RVR. Plan: Right hip fracture - 2/2 Mechanical fall; s/p ORIF (POD #6) - s/p right hip intramedullary nail/open reduction internal fixation - Pain medications and anticoagulation per orthopedics: Continue with current regimen of morphine 2 mg every 4 hours when necessary pain and tramadol 50 mg every 4 hours when necessary - c/w PT - will need subacute rehabilitation Paroxysmal atrial fibrillation - Dr. Garcia from cardiology consulted, appreciate his help - ECHO /: normal left ventricular systolic function with some features of grade 2 left ventricular diastolic dysfunction, aortic valve sclerosis with trivial aortic stenosis and mild aortic regurgitation, mitral annulus calcification with trace mitral regurgitation, moderate tricuspid regurgitation with moderate pulmonary hypertension and mildly enlarged right atrium, and trace pulmonic regurgitation. - Will continue with telemetry monitoring: Has been in sinus rhythm overnight - s/p Metoprolol 5mg IV x3, Diltiazem 15 mg IV x 1, Digoxin loading - Continue with rate / rhythm control with amiodarone and digoxin - Digoxin level 1.5 08/12/19 - c/w full anticoagulation with Xarelto - If she takes her amiodarone and continues in sinus rhythm, can potentially downgrade Acute delirium on mild dementia - Patient likely has baseline level of mild dementia - Has been very confused while inpatient - This morning less combative - Continue to reduce sensory impairments, ensuring proper sleep patterns, encouraging adequate nutrition/hydration (IVF running 80 mL's per hour, ensure 3 times a day with meals) - c/w Seroquel (dose increased to 50 mg daily at bedtime); low-dose Haldol as needed for agitation and confusion Leukocytosis - She was started on empiric antibiotic treatment 08/11/2019 for a leukocytosis of 17,300. CT of the pelvis showed a small seroma at the incision site of the right hip measuring 2.3 x 3.4 x 4.4 cm, typical postoperative finding versus infection/cellulitis. Right medullary julio césar and screw fixation is in good position. 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 - May be multifactorial (including stress reaction from recent fall, surgery, and A. fib with RVR) - On day #3 of empiric antibiotic coverage - CRP is decreasing, despite vancomycin trough being subtherapeutic (increased CRP could have been from recent surgery) - MRSA screen positive, however the patient has been afebrile during her hospit al stay - Blood cultures show no growth at 48 hours - Will DC antibiotics as the patient clinically has no signs of infection Osteoporosis - Will likely require Calcium / Vitamin D supplementation - Will have outpatient follow up with PCP for possible DEXA scan COPD - Currently patient has no evidence of exacerbation - s/p Prednisone - c/w Inhaled therapy as ordered Constipation - c/w Bowel regimen as ordered DVT prophylaxis - c/w full anticoagulation as per orthopedic team Swallow evaluation done, recommended soft mechanical as the patient complained as a sore throat, no aspiration or pharyngeal difficulties suspected. Disposition: - Patient will likely will need subacute rehabilitation; DC pending rate control with amiodarone and digoxin VS,Fishbone, I+O VS, Fishbone, I+O Laboratory Tests 08/14/19 05:38 Vital Signs Date Time Temp Pulse Resp B/P (MAP) Pulse Ox O2 Delivery O2 Flow Rate FiO2 08/14/19 04:00 2.0 08/14/19 04:00 97.6 111 18 142/80 (100) 86 Nasal Cannula I&O- Last 24 Hours up to 6 AM 08/14/19 06:00 Intake Total 800 ml Output Total 0 ml Balance 800 ml GME ATTESTATION GME ATTESTATION My faculty preceptor for this patient encounter was physically present during the encounter and was fully available. All aspects of the patient interview, examination, medical decision making process, and medical care plan development were reviewed and approved by the faculty preceptor. The faculty preceptor is aware and concurs with the plan as stated in the body of this note and will attest to such by his/her cosignature. STARR MAGALLANES D.O. Aug 14, 2019 09:39
[2019-08-14] MEDS: DIGOXIN 0.125 MG TAB PO SCH (09:58)
[2019-08-14] MEDS: QUEtiapine FUMARATE 25 MG TAB PO SCH ×2 (09:58→21:37)
[2019-08-14] MEDS: VANCOMYCIN HCL 1,000 MG, VIAL MATE ADAPTER 1 EACH in D5W 250 ML IV SCH (10:52)
[2019-08-14] MEDS ORDERED: SLF 3 ML SYR IV PRN (11:30)
[2019-08-14 12:15] VITALS: BP 120/58
[2019-08-14] MEDS: SLF 3 ML SYR IV SCH ×2 (14:00→21:38)
[2019-08-14 16:09] VITALS: BP 138/66
[2019-08-14] MEDS: RIVAROXABAN 15 MG TAB (XARELTO) PO SCH (17:22)
[2019-08-14 20:00] VITALS: BP 122/59
[2019-08-15] VITALS: BP 96/60
[2019-08-15 04:00] VITALS: BP 112/80
[2019-08-15] MEDS: AMIODARONE 100MG TABLET (PACERONE) PO SCH ×3 (05:04→17:04)
[2019-08-15] MEDS: SLF 3 ML SYR IV SCH ×3 (05:04→21:49)
[2019-08-15] MEDS: ACETAMINOPHEN 500 MG TAB PO SCH ×3 (05:04→21:48)
[2019-08-15 05:52] LABS: BASO % 0.1 % (0.0-1.0); EOS # 0.5 10^3/uL (0.0-0.5); EOS % 3.6 % (0.0-3.0); HEMATOCRIT 31.6 % (36.0-47.0); HEMOGLOBIN 10.3 g/dl (12.0-15.5); LYMPH # 1.4 10^3/uL (1.5-5.0); LYMPH % 9.9 % (24.0-44.0); MEAN CORPUSCULAR HEMOGLOBIN 33.8 pg (27.0-33.0); MEAN CORPUSCULAR HGB CONC 32.6 g/dl (32.0-36.5); MEAN CORPUSCULAR VOLUME 103.6 fl (80.0-96.0); MONO % 15.7 % (0.0-5.0); NEUTROPHILS # 10.1 10^3/uL (1.5-8.5); NEUTROPHILS % 70.2 % (36.0-66.0); PLATELET COUNT, AUTOMATED 324 10^3/uL (150-450); RED BLOOD COUNT 3.05 10^6/uL (4.00-5.40); WHITE BLOOD COUNT 14.3 10^3/uL (4.0-10.0)
[2019-08-15 06:19] LABS: C REACTIVE PROTEIN QUANTITATIV 3.86 MG/DL (0.00-0.30); CALCIUM LEVEL 7.9 MG/DL (8.8-10.2); CREATININE FOR GFR 1.18 MG/DL (0.55-1.30); GLOMERULAR FILTRATION RATE 46.2 (>32); POTASSIUM SERUM 3.5 MEQ/L (3.5-5.1)
[2019-08-15 06:21] LABS: MONO # 2.3 10^3/uL (0.0-0.8)
--- NOTE | 2019-08-15 07:13 | IPNPDOC ---
Text Note Date of Service The patient was seen on 08/15/19. NOTE Subjective: Patient was seen and examined at the bedside. Overnight she took her amiodarone as directed. She an episode A. fib with a rate of 112 that was not sustained. She underwent speech therapy evaluation, and they have requested a modified cookie swallow. She is apologetic today, and says that she deserves the scolding that she got yesterday by the nursing staff for being uncooperative. She denies any chest pain or belly pain. She denies any shortness of breath. Nursing staff reports she is still making urine, has been incontinent intermittently. She was also hypotensive overnight with a systolic in the 90s. Objective: Vitals (See below) General: Lying in bed, cooperative this morning HEENT: Eyes are clear, head is normocephalic, atraumatic. Mucous membranes are moist. There is no thrush in her throat/posterior pharynx. Heart: Regular rate and rhythm; no murmurs, gallops, or rubs Lungs: Clear to auscultation bilaterally; no wheezes, rhonchi, or rales Abdomen: Normoactive bowel sounds, nontender, nondistended Extremities: No lower extremity edema bilaterally, no calf tenderness bilaterally. Bruising noted along the operative site, there is no crepitus to palpation. Neuro: Moves all 4 extremities spontaneously and without difficulty. Sensation intact bilaterally Psych: Answers questions appropriately Assessment: 88-year-old female admitted for management of a right hip fracture. Postop day #7 status post right hip intramedullary nail/open reduction internal fixation, complicated by acute delirium in the setting of mild dementia and new onset paroxysmal atrial fibrillation with RVR. Plan: Right hip fracture - 2/2 Mechanical fall; s/p ORIF (POD #7) - s/p right hip intramedullary nail/open reduction internal fixation - Pain medications and anticoagulation per orthopedics: Continue with current regimen of tramadol 50 mg every 4 hours when necessary, morphine decreased to 1 mg every 4 hours when necessary due to her renal function - c/w PT - will need subacute rehabilitation Paroxysmal atrial fibrillation - Dr. Garcia from cardiology consulted, appreciate his help - ECHO 08/09: normal left ventricular systolic function with some features of g rade 2 left ventricular diastolic dysfunction, aortic valve sclerosis with trivial aortic stenosis and mild aortic regurgitation, mitral annulus calcification with trace mitral regurgitation, moderate tricuspid regurgitation with moderate pulmonary hypertension and mildly enlarged right atrium, and trace pulmonic regurgitation. - Will continue with telemetry monitoring: Has been mostly controlled overnight - Continue with rate / rhythm control with amiodarone and digoxin, do not use beta blockers or calcium channel blockers because make her hypotensive - Digoxin level 1.5 08/12/19, digoxin level today 1.8 - c/w full anticoagulation with Xarelto - Downgraded to MedSurg telemetry today Acute delirium on mild dementia, improving - Patient likely has baseline level of mild dementia - Has been very confused while inpatient - Continue to reduce sensory impairments, ensuring proper sleep patterns, encouraging adequate nutrition/hydration (IVF running 80 mL's per hour, ensure 3 times a day with meals) - c/w Seroquel (dose increased to 50 mg daily at bedtime); low-dose Haldol as needed for agitation and confusion (has not been needed in 24 hours) Leukocytosis - She was started on empiric antibiotic treatment 08/11/2019 for a leukocytosis of 17,300. CT of the pelvis showed a small seroma at the incision site of the right hip measuring 2.3 x 3.4 x 4.4 cm, typical postoperative finding versus infection/cellulitis. Right medullary julio césar and screw fixation is in good position. 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 - May be multifactorial (including stress reaction from recent fall, surgery, and A. fib with RVR) - Antibiotics discontinued yesterday - CRP is decreasing (increased CRP could have been from recent surgery) - MRSA screen positive, however the patient has been afebrile during her hospital stay - Blood cultures show no growth at 72 hours - Still does not have clinical signs of infection - Will assess with pro-calcitonin, peripheral smear, CT chest/abdomen/pelvis Acute kidney injury - Will assess with urinalysis and urine electrolytes, CT chest/abdomen/pelvis - May be from recent antibiotics, prerenal (A. fib RVR and hypotension), increased BUN from healing bruises/heme breakdown - Medications reviewed, morphine decreased as it is renally cleared - May be related to volume status, 500 mL bolus given - Encourage adequate nutrition Osteoporosis - Will likely require Calcium / Vitamin D supplementation - Will have outpatient follow up with PCP for possible DEXA scan COPD - Currently patient has no evidence of exacerbation - s/p Prednisone - c/w Inhaled therapy as ordered Constipation - c/w Bowel regimen as ordered DVT prophylaxis - c/w full anticoagulation as per orthopedic team Difficulty swallowing - Swallow evaluation done, recommended soft mechanical as the patient complained as a sore throat, no aspiration or pharyngeal difficulties suspected. - Modified cookie swallow - No evidence of thrush on physical exam Disposition: - Patient will likely will need subacute rehabilitation; DC pending rate control with amiodarone and digoxin, JEREL work up VS,Fishbone, I+O VS, Fishbone, I+O Laboratory Tests 08/15/19 05:33 Vital Signs Date Time Temp Pulse Resp B/P (MAP) Pulse Ox O2 Delivery O2 Flow Rate FiO2 08/15/19 04:00 2.0 08/15/19 04:00 97.6 112 80 112/80 (91) 100 Nasal Cannula I&O- Last 24 Hours up to 6 AM 08/15/19 06:00 Intake Total 700 ml Output Total 525 ml Balance 175 ml GME ATTESTATION GME ATTESTATION My faculty preceptor for this patient encounter was physically present during the encounter and was fully available. All aspects of the patient interview, examination, medical decision making process, and medical care plan development were reviewed and approved by the faculty preceptor. The faculty preceptor is aware and concurs with the plan as stated in the body of this note and will attest to such by his/her cosignature. STARR MAGALLANES D.O. Aug 15, 2019 07:13
[2019-08-15 07:53] VITALS: BP 131/62
[2019-08-15] MEDS: QUEtiapine FUMARATE 25 MG TAB PO SCH ×2 (08:54→21:48)
[2019-08-15] MEDS: DIGOXIN 0.125 MG TAB PO SCH (08:55)
[2019-08-15] MEDS ORDERED: NS 500 ML IV SCH (09:00)
[2019-08-15] MEDS ORDERED: MORPHINE 2 MG/ML 1ML VIAL (J2270) IV PRN (09:00)
[2019-08-15 09:43] LABS: ALBUMIN 2.3 GM/DL (3.2-5.2); BILIRUBIN,DIRECT 0.3 MG/DL (0.0-0.2); BILIRUBIN,TOTAL 0.8 MG/DL (0.2-1.0); DIGOXIN LEVEL 1.8 NG/ML (0.5-2.0); PHOSPHORUS LEVEL 3.1 MG/DL (2.5-4.9); TOTAL PROTEIN 4.9 GM/DL (6.4-8.2)
--- NOTE | 2019-08-15 11:00 | IPN ---
DATE: 08/14/2019 CHIEF COMPLAINT: Postoperative right hip intramedullary (IM) nail for intertrochanteric hip fracture. HISTORY OF PRESENT ILLNESS: This 88-year-old female underwent IM nailing of a right intertrochanteric hip fracture on 08/08/2019, roughly 6 days ago. She is doing well. She does not complain about pains in her hip. She is being mobilized. She has atrial fibrillation, now on Xarelto. Still in the progressive care unit (PCU). PHYSICAL EXAMINATION: She is a well-appearing 88-year-old female. She is alert. She is not oriented to place or time but is oriented to person. Thigh compartments are soft. Dressings are dry. Little bit of edema of the right hip and no drainage. Lower extremities neurovascularly intact. Good pedal pulses. ASSESSMENT AND PLAN: 88-year-old female weightbearing as tolerated. Followup in the clinic 2 weeks after the surgery or if she remains in the hospital discontinue julia 2 weeks post-op. HOLDEN
[2019-08-15 11:42] VITALS: BP 111/71
--- NOTE | 2019-08-15 12:49 | REP ---
CT chest without contrast: History: Acute kidney insufficiency. Leukocytosis. Comparison is made with chest x-ray from August [address] findings: There are advanced emphysematous changes with hyperinflation of the lungs bilaterally. There are very small bilateral pleural effusions. No infiltrate is seen in the pulmonary parenchyma. No hilar or mediastinal mass or adenopathy is observed. Vascular calcification is seen. No pericardial effusion is seen. Visualized upper abdominal structures are unremarkable. Thoracic vertebral body heights are preserved. Thoracic kyphosis is exaggerated. No bony destructive lesion is appreciated. Impression: Hyperinflation, emphysematous change COPD pattern. Very small bilateral pleural effusions. No acute infiltrate. Electronically Signed by Jules Martin MD 08/15/2019 12:41 P
[2019-08-15] MEDS ORDERED: VARIBAR PUDDING 40% w/v 230ML TUBE As Ordered ONE (13:01)
[2019-08-15] MEDS ORDERED: VARIBAR NECTAR 40% w/v 240ML SUSP BTL As Ordered ONE (13:01)
[2019-08-15] MEDS ORDERED: E-Z-PAQUE 96% w/w SUSP 176GM BTL As Ordered ONE (13:02)
[2019-08-15] MEDS ORDERED: BARIUM SULFATE 700 MG TABLET (E-Z-DISK) As Ordered ONE (13:02)
[2019-08-15 13:07] LABS: APPEARANCE, URINE CLOUDY (CLEAR); BACTERIA, URINE AUTO 1+ (NEGATIVE); BILIRUBIN, URINE AUTO NEGATIVE (NEGATIVE); BLOOD, URINE BLOOD 1+ (NEGATIVE); COLOR, URINE YELLOW (YELLOW); GLUCOSE, URINE (UA) AUTO NEGATIVE (NEGATIVE); KETONE, URINE AUTO NEGATIVE (NEGATIVE); LEUKOCYTE ESTERASE, URINE AUTO 3+ (NEGATIVE); NITRITE, URINE AUTO NEGATIVE (NEGATIVE); PROTEIN, URINE AUTO 1+ mg/dL (NEGATIVE); RBC, URINE AUTO 22 /HPF (0-3); SPECIFIC GRAVITY URINE AUTO 1.009 (1.002-1.035); SQUAMOUS EPITHELIAL CELL UR AU 12 /HPF (0-6); TRANSITIONAL EPITHELIAL AUTO 2 /HPF; UROBILINOGEN, URINE AUTO 0.2 mg/dL (0.0-2.0); WBC, URINE AUTO 139 /HPF (0-3)
--- NOTE | 2019-08-15 13:38 | REP ---
CT abdomen and pelvis without IV or oral contrast: History: Leukocytosis. Acute kidney insufficiency. Comparison CT study is from August 11, 2019, this having been a CT study of the right hip. CT findings: Preliminary faith doctor radiograph demonstrates a intramedullary julio césar and femoral neck pin in the right femur with lateral skin julia along the thigh. The hands overlie the abdomen and pelvis. There is diffuse subcutaneous edema. The liver and the spleen are normal in size and appear homogeneous in texture. There is no evidence of free intraperitoneal air. There are a few air-fluid levels in central abdominal small bowel. No obstructive lesion is seen. There is no evidence of ascites. There is mild diverticulosis of the sigmoid colon. There is no CT evidence of diverticulitis. The appendix is not confidently identified but there is no inflammatory focus to suggest appendicitis. The uterus is surgically absent. Urinary bladder is mildly distended and it contains an air-fluid level consistent with previous instrumentation. There is no evidence of hydronephrosis on either side. There is an intrarenal calculus at mid position of the left kidney 3 mm in diameter. Impression: No acute intra-abdominal abnormality. Mild distension of the urinary bladder. 3 mm intrarenal calculus left mid kidney. There is a small quantity of air in the mildly distended urinary bladder. Recent pinning right hip fracture. Electronically Signed by Jules Martin MD 08/15/2019 01:50 P
[2019-08-15 15:51] VITALS: BP 119/58
--- NOTE | 2019-08-15 16:49 | REP ---
COOKIE SWALLOW The procedure was performed under the direct supervision of Dr. Martin. The procedure was performed with Vera Hudson from speech pathology present. 5 ml aliquots of thin, mixed fruit and soft consistency barium was administered. With thin consistency barium there is aspiration. The detailed report of this examination will be provided by speech pathology. 1.3 minutes of fluoroscopy time was utilized for this procedure. Electronically Signed by SOO Navas 08/15/2019 04:20 P Electronically Signed by Jules aMrtin MD 08/15/2019 04:40 P
[2019-08-15] MEDS: RIVAROXABAN 15 MG TAB (XARELTO) PO SCH (17:04)
[2019-08-15] MEDS ORDERED: cefTRIAXone SOD 1 GM in D5W MINI-BAG PLUS 50 ML IV ONE (19:30)
[2019-08-15 20:00] VITALS: BP 115/58
[2019-08-16 03:48] LABS: APPEARANCE, URINE CLEAR (CLEAR); BACTERIA, URINE AUTO NEGATIVE (NEGATIVE); BILIRUBIN, URINE AUTO NEGATIVE (NEGATIVE); BLOOD, URINE BLOOD NEGATIVE (NEGATIVE); COLOR, URINE YELLOW (YELLOW); GLUCOSE, URINE (UA) AUTO NEGATIVE (NEGATIVE); KETONE, URINE AUTO TRACE mg/dL (NEGATIVE); LEUKOCYTE ESTERASE, URINE AUTO 1+ (NEGATIVE); MUCUS, URINE SMALL (NEGATIVE); NITRITE, URINE AUTO NEGATIVE (NEGATIVE); PROTEIN, URINE AUTO 1+ mg/dL (NEGATIVE); RBC, URINE AUTO 3 /HPF (0-3); SQUAMOUS EPITHELIAL CELL UR AU 1 /HPF (0-6); UROBILINOGEN, URINE AUTO 0.2 mg/dL (0.0-2.0); WBC, URINE AUTO 19 /HPF (0-3)
[2019-08-16 04:00] VITALS: BP 133/65
[2019-08-16 05:56] LABS: BASO % 0.3 % (0.0-1.0); EOS # 0.6 10^3/uL (0.0-0.5); EOS % 3.6 % (0.0-3.0); HEMATOCRIT 31.5 % (36.0-47.0); HEMOGLOBIN 9.9 g/dl (12.0-15.5); LYMPH # 1.4 10^3/uL (1.5-5.0); LYMPH % 8.8 % (24.0-44.0); MEAN CORPUSCULAR HEMOGLOBIN 33.7 pg (27.0-33.0); MEAN CORPUSCULAR HGB CONC 31.4 g/dl (32.0-36.5); MEAN CORPUSCULAR VOLUME 107.1 fl (80.0-96.0); MONO # 1.9 10^3/uL (0.0-0.8); MONO % 12.2 % (0.0-5.0); NEUTROPHILS # 11.7 10^3/uL (1.5-8.5); NEUTROPHILS % 74.5 % (36.0-66.0); PLATELET COUNT, AUTOMATED 315 10^3/uL (150-450); RED BLOOD COUNT 2.94 10^6/uL (4.00-5.40); WHITE BLOOD COUNT 15.7 10^3/uL (4.0-10.0)
[2019-08-16] MEDS: AMIODARONE 100MG TABLET (PACERONE) PO SCH ×2 (06:00)
[2019-08-16] MEDS: ACETAMINOPHEN 500 MG TAB PO SCH ×2 (06:00→14:00)
[2019-08-16] MEDS: SLF 3 ML SYR IV SCH ×3 (06:03→22:00)
[2019-08-16 06:31] LABS: C REACTIVE PROTEIN QUANTITATIV 4.5 MG/DL (0.00-0.30); CALCIUM LEVEL 8.1 MG/DL (8.8-10.2); CREATININE FOR GFR 1.61 MG/DL (0.55-1.30); GLOMERULAR FILTRATION RATE 32.3 (>32); MAGNESIUM LEVEL 2.1 MG/DL (1.8-2.4); POTASSIUM SERUM 3.9 MEQ/L (3.5-5.1)
[2019-08-16 08:00] VITALS: BP 114/63
[2019-08-16] MEDS: QUEtiapine FUMARATE 25 MG TAB PO SCH ×4 (08:56→23:53)
[2019-08-16] MEDS: DIGOXIN 0.125 MG TAB PO SCH (08:56)
[2019-08-16] MEDS: FUROSEMIDE 40 MG/4 ML VIAL (J1940) IV ONE ×2 (10:51→12:09)
[2019-08-16 12:00] VITALS: BP 140/70
[2019-08-16] MEDS: AMIODARONE 200 MG TAB (PACERONE) PO SCH ×3 (13:05→23:55)
--- NOTE | 2019-08-16 16:18 | CR ---
DATE OF CONSULTATION: 08/16/2019 NEPHROLOGY CONSULTATION FOR: Mateo Brand MD REASON FOR CONSULT: Acute renal failure. HISTORY OF PRESENT ILLNESS: Mrs. Corea is an 88-year-old frail lady with multiple chronic medical problems including history of chronic obstructive pulmonary disease (COPD) - on home oxygen, prior hysterectomy, and bilateral cataract surgery. She was admitted with right hip fracture due to fall and had open reduction internal fixation (ORIF) done. She did have a CT scan with intravenous (IV) contrast on August 11, 2019, to look for any pelvic problems. She also had an episode of atrial fibrillation and has been on amiodarone with sinus rhythm return. She has developed worsening kidney function over the last couple of days due to which a nephrology consultation was requested and the patient is seen this morning. PAST MEDICAL AND SURGICAL HISTORY: Significant for: 1. Oxygen-dependent COPD. 2. History of hysterectomy. 3. Bilateral cataract surgery. 4. Recent right hip fracture, status post ORIF. PERSONAL AND SOCIAL HISTORY: The patient is a former smoker. Currently she is visiting from [place]. FAMILY HISTORY: Significant for colon cancer, breast cancer and cardiovascular disease. ALLERGIES: The patient has allergy to CODEINE. HOME MEDICATIONS: Her home medications included Augmentin, multivitamin, prednisone and Anoro Ellipta. She also uses ProAir and Advair. REVIEW OF SYSTEMS: The patient denies any fever or chills. She is chronically short of breath. She is currently using oxygen via nasal cannula. Nose and throat are unremarkable. Cardiovascular system: Significant for chronic shortness of breath. She had an episode of paroxysmal atrial fibrillation. She is now on amiodarone and has converted back to sinus rhythm. Respiratory system is significant for COPD and chronic hypoxemia. Gastrointestinal (GI) system: Negative for nausea, vomiting or diarrhea. Genitourinary () system is negative for dysuria or hematuria. Endocrine system: Negative for diabetes or thyroid problems. Hematological system is significant for anemia. Psychosocial system: Negative for depression, anxiety. Skin: Negative for rash or ulcers. PHYSICAL EXAMINATION: Temperature 98.3 degrees Fahrenheit, heart rate 64 per minute and respiratory rate 20 per minute. Blood pressure 114/63 mmHg and oxygen saturation 97% on 2 liters oxygen. Head is atraumatic. Neck is supple and jugular venous distention (JVD) is about 5-6 cm above sternal angle. Heart sounds are regular at present and lungs have bilateral rales at lower one half. Abdomen: Soft and nontender. Bowel sounds are normal. Extremities: Have no cyanosis or clubbing. Neurologically, she is awake, alert, and oriented times three. Her labs on August 14, 2019, showed BUN of 15 and creatinine 0.43. Yesterday, BUN 19 and creatinine 1.18. Today her sodium was 142, potassium 3.9, CO2 of 23, BUN 25 and creatinine 1.61. Hemoglobin is 9.9 and hematocrit 31.5. WBC count 15.7. PROBLEMS: 1. Acute kidney injury, probably contrast nephropathy versus multifactorial as she had hip surgery, episode of paroxysmal atrial fibrillation and may also have urinary retention following her surgery. We will have nursing staff do a bladder scan and check for postvoid residual. Contrast nephropathy is likely to improve over next few days. Her atrial fibrillation has already converted to sinus rhythm. Volume status seems to be slightly decompensated. 2. Congestive heart failure. She probably has decompensated volume status related to episode of atrial fibrillation. We are going to give her one dose of Lasix 40 mg intravenously and see how she does. Thank you for involving me in the care of Mrs. Corea. I will follow her along with you.
[2019-08-16 16:25] VITALS: BP 140/77
--- NOTE | 2019-08-16 17:18 | IPNPDOC ---
Text Note Date of Service The patient was seen on 08/16/19. NOTE Subjective: Patient was seen and examined at the bedside. There were no events on telemetry overnight, her heart rate stayed controlled. She was agreeable and took her medications as requested, except with her AM meds this morning. She is in a much better mood today, and much more lucid than she has been after her surgery. She denies fevers, chills, nausea, vomiting, diarrhea, or lower extremity swelling. Objective: Vitals (See below) General: Sitting up in a chair, pleasant and cooperative, very conversant HEENT: Eyes are clear, head is normocephalic, atraumatic. Mucous membranes are moist. Neck: Mild JVD Heart: Regular rate and rhythm; no murmurs, gallops, or rubs Lungs: Clear to auscultation bilaterally; slight crackles at the bases bilaterally, but no overt wheezes or rhonchi Abdomen: Normoactive bowel sounds, nontender, nondistended Extremities: No lower extremity edema bilaterally, no calf tenderness bilaterally. Bruising noted along the operative site, there is no crepitus to palpation, no oozing or drainage. Neuro: Moves all 4 extremities spontaneously and without difficulty. Sensation intact bilaterally. Very lucid this morning Psych: Answers questions appropriately Assessment: 88-year-old female admitted for management of a right hip fracture. Postop day #8 status post right hip intramedullary nail/open reduction internal fixation, complicated by acute delirium in the setting of mild dementia, new onset paroxysmal atrial fibrillation with RVR, and Acute Kidney Injury. Plan: Right hip fracture - 2/2 Mechanical fall; s/p ORIF (POD #8) - s/p right hip intramedullary nail/open reduction internal fixation - Pain medications and anticoagulation per orthopedics: Continue with current regimen of tramadol 50 mg every 4 hours when necessary, morphine decreased to 1 mg every 4 hours when necessary due to her renal function - c/w OT/PT - will need subacute rehabilitation Paroxysmal atrial fibrillation - Dr. Garcia from cardiology consulted, appreciate his help - ECHO 08/09: normal left ventricular systolic function with some features of grade 2 left ventricular diastolic dysfunction, aortic valve sclerosis with trivial aortic stenosis and mild aortic regurgitation, mitral annulus calcification with trace mitral regurgitation, moderate tricuspid regurgitation with moderate pulmonary hypertension and mildly enlarged right atrium, and trace pulmonic regurgitation. - No events on telemetry overnight, discontinued. Has been rate controlled - Continue with rate / rhythm control with amiodarone and digoxin, do not use beta blockers or calcium channel blockers because make her hypotensive - Digoxin level 08/12/19: 1.5, digoxin level 08/16/19: 1.8 - c/w full anticoagulation with Xarelto - Downgraded to MedSurg today Acute delirium on mild dementia, improving - Patient likely has baseline level of mild dementia - Has been very confused while inpatient, but is very lucid this morning - Continue to reduce sensory impairments, ensuring proper sleep patterns, encouraging adequate nutrition/hydration (IVF running 80 mL's per hour, ensure 3 times a day with meals) - c/w Seroquel (dose increased to 50 mg daily at bedtime); low-dose Haldol as needed for agitation and confusion (has not been needed in 24 hours) Leukocytosis - She was started on empiric antibiotic treatment 08/11/2019 for a leukocytosis of 17,300. CT of the pelvis showed a small seroma at the incision site of the right hip measuring 2.3 x 3.4 x 4.4 cm, typical postoperative finding versus infection/cellulitis. Right medullary julio césar and screw fixation is in good positi on. 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 - May be multifactorial (including stress reaction from recent fall, surgery, and A. fib with RVR) - Currently on ceftriaxone 1 g every 24 hours - CRP was decreasing, increased slightly today - MRSA screen positive, however the patient has been afebrile during her hospital stay - Blood cultures show no growth at 72 hours - Still does not have clinical signs of infection, will evaluate operation site with an ultrasound of the right thigh - Pro calcitonin 0.12 (less likely infection), peripheral smear showed leukocytosis with neutrophilia, monocytosis, and mild lymphopenia which is likely reactive, no blast forms identified. - CT chest/abdomen/pelvis: No acute infiltrate on a chest CT, no acute intra- abdominal abnormality. Mild distention of the urinary bladder with a small quantity of air, 3 mm intrarenal calculus without obstruction in the left mid kidney. - Will obtain ultrasound of the right thigh to assess for any fluid collection at the operation site. If this is negative, may consider discontinuing antibiotics again Acute kidney injury, creatinine increased to 1.61 this morning - FENa calculated to 2.1%, indicating intrinsic disease. - May be multifactorial: Hypoperfusion to the kidney related to her atrial fibrillation and hypertension, recent IV contrast use, potential nephrotoxic medications - Encourage adequate nutrition and hydration - Dr. Thibodeaux from nephrology consulted, appreciate his assistance: May be contrast-induced nephropathy (which should improve over the next few days) versus obstruction. She did have jugular venous distention on exam, and was given 1 dose of IV Lasix 40 mg due to decompensated volume status related to her episodes of atrial fibrillation. He has requested bladder scan, with instructions to straight cath if it is over 250 mL Osteoporosis - Will likely require Calcium / Vitamin D supplementation - Will have outpatient follow up with PCP for possible DEXA scan COPD - Currently patient has no evidence of exacerbation - s/p Prednisone - c/w Inhaled therapy as ordered Constipation - c/w Bowel regimen as ordered DVT prophylaxis - c/w full anticoagulation as per orthopedic team Difficulty swallowing: Speech therapy workup has been negative Disposition: - Patient will likely will need subacute rehabilitation; DC pending rate control with amiodarone and digoxin, stable kidney function NOTE: A long discussion (greater than 30 minutes) was held with the patient and her son-in-law at bedside this morning regarding end-of-life decision-making. She wishes to be DNR/DNI, trial of IV fluids, yesterday antibiotics, no feeding tube, limited medical interventions. VS,Fishbone, I+O VS, Fishbone, I+O Laboratory Tests 08/16/19 05:40 Vital Signs Date Time Temp Pulse Resp B/P (MAP) Pulse Ox O2 Delivery O2 Flow Rate FiO2 08/16/19 12:00 97.4 79 22 140/70 (93) 93 Nasal Cannula 2.0 I&O- Last 24 Hours up to 6 AM 08/16/19 06:00 Intake Total 670 ml Output Total 300 ml Balance 370 ml GME ATTESTATION GME ATTESTATION My faculty preceptor for this patient encounter was physically present during the encounter and was fully available. All aspects of the patient interview, examination, medical decision making process, and medical care plan development were reviewed and approved by the faculty preceptor. The faculty preceptor is aware and concurs with the plan as stated in the body of this note and will attest to such by his/her cosignature. STARR MAGALLANES D.O. Aug 16, 2019 17:18
--- NOTE | 2019-08-16 17:42 | REPVR ---
PROCEDURE INFORMATION: Exam: US Right Non-Vascular Joint or Other Extremity Structure, Limited Lower Extremity Exam date and time: 08/16/2019 5:25 PM Age: 88 years old Clinical history: Pain; Thigh; Patient HX: Right px femur fracture; Additional info: ? Fluid collection/edema/bruising, fell on RT hip/lat thigh 1 week ago TECHNIQUE: Imaging protocol: Right US Non-Vascular Joint or Other Extremity Structure. Limited exam of the lower extremity. COMPARISON: CR Femur RIGHT 08/07/2019 2:14 AM FINDINGS: Soft tissues: Imaging of the lateral right thigh in the region of soft tissue edema and discoloration demonstrates a small complex fluid collection demonstrated lateral to the femoral head measuring 3.3 x 1.1 x 2.5 cm. Findings consistent with a small seroma/hematoma. Also noted is subcutaneous edema. Bones/joints: Unremarkable. IMPRESSION: Findings consistent with a small hematoma or seroma in the deep soft tissues adjacent to the femoral head. Electronically signed by: Abhi Epstein On 08/16/2019 17:41:43 PM
[2019-08-16] MEDS: RIVAROXABAN 15 MG TAB (XARELTO) PO SCH (18:27)
[2019-08-16] MEDS ORDERED: cefTRIAXone SOD 1 GM in D5W MINI-BAG PLUS 50 ML IV SCH (21:00)
[2019-08-16 22:00] VITALS: BP 142/76
[2019-08-17] MEDS: SLF 3 ML SYR IV SCH ×3 (05:40→21:28)
[2019-08-17] MEDS: AMIODARONE 200 MG TAB (PACERONE) PO SCH ×3 (05:41→09:39)
[2019-08-17 06:00] VITALS: BP 138/68
[2019-08-17 06:33] LABS: BASO % 0.2 % (0.0-1.0); EOS # 0.1 10^3/uL (0.0-0.5); EOS % 0.5 % (0.0-3.0); HEMATOCRIT 29.5 % (36.0-47.0); HEMOGLOBIN 9.6 g/dl (12.0-15.5); LYMPH # 1.2 10^3/uL (1.5-5.0); LYMPH % 8.9 % (24.0-44.0); MEAN CORPUSCULAR HEMOGLOBIN 33.8 pg (27.0-33.0); MEAN CORPUSCULAR HGB CONC 32.5 g/dl (32.0-36.5); MEAN CORPUSCULAR VOLUME 103.9 fl (80.0-96.0); MONO # 1.3 10^3/uL (0.0-0.8); MONO % 9.6 % (0.0-5.0); NEUTROPHILS # 10.9 10^3/uL (1.5-8.5); NEUTROPHILS % 80.1 % (36.0-66.0); PLATELET COUNT, AUTOMATED 376 10^3/uL (150-450); RED BLOOD COUNT 2.84 10^6/uL (4.00-5.40); WHITE BLOOD COUNT 13.6 10^3/uL (4.0-10.0)
[2019-08-17 06:55] LABS: C REACTIVE PROTEIN QUANTITATIV 4.08 MG/DL (0.00-0.30); CALCIUM LEVEL 8.7 MG/DL (8.8-10.2); CREATININE FOR GFR 1.81 MG/DL (0.55-1.30); GLOMERULAR FILTRATION RATE 28.2 (>32); POTASSIUM SERUM 3.6 MEQ/L (3.5-5.1)
[2019-08-17] MEDS: DIGOXIN 0.125 MG TAB PO SCH (09:39)
[2019-08-17] MEDS: QUEtiapine FUMARATE 25 MG TAB PO SCH ×2 (09:40→21:28)
--- NOTE | 2019-08-17 10:20 | IPNPDOC ---
Text Note Date of Service The patient was seen on 08/17/19. NOTE Subjective: Patient was seen and examined at the bedside. There were no acute events on telemetry overnight, though she did refuse to eat her breakfast this morning. She did not have an tachycardia over night, and her rate remained controlled. She denies fevers, chills, nausea, vomiting, diarrhea, or chest pain. Her breathing has been at her baseline. She does have right lower extremity swelling. Objective: Vitals (See below) General: Sitting up in a chair, pleasant and cooperative, very conversant HEENT: Eyes are clear, head is normocephalic, atraumatic. Mucous membranes are moist. Neck: Mild JVD, no masses or adenopathy Heart: Irregular rate and not tachycardic; no murmurs, gallops, or rubs Lungs: Clear to auscultation bilaterally; slight crackles at the bases bilaterally, but no overt wheezes or rhonchi Abdomen: Normoactive bowel sounds, nontender, nondistended Extremities: No lower extremity edema in the left leg, mild non pitting edema in the right lower extremity, no calf tenderness bilaterally. Bruising is improved. Dressing along the operative site is intact with mild serous staining but there is no crepitus to palpation, oozing, or drainage. Neuro: Moves all 4 extremities spontaneously and without difficulty. Sensation intact bilaterally. Very lucid this morning Psych: Answers questions mostly appropriately, thinks it is the year 1900 today, knows the president of the is [place] Assessment: 88-year-old female admitted for management of a right hip fracture. Postop day #9 status post right hip intramedullary nail/open reduction internal fixation, complicated by acute delirium in the setting of mild dementia, new onset paroxysmal atrial fibrillation with RVR, and Acute Kidney Injury. Plan: Right hip fracture - 2/2 Mechanical fall; s/p ORIF (POD #9) - s/p right hip intramedullary nail/open reduction internal fixation - Pain medications and anticoagulation per orthopedics: Continue with current regimen of tramadol 50 mg every 4 hours when necessary, morphine decreased to 1 mg every 4 hours when necessary due to her renal function - c/w OT/PT - will need subacute rehabilitation Paroxysmal atrial fibrillation - Dr. Garcia from cardiology consulted, appreciate his help - ECHO 12/6: normal left ventricular systolic function with some features of grade 2 left ventricular diastolic dysfunction, aortic valve sclerosis with trivial aortic stenosis and mild aortic regurgitation, mitral annulus calcification with trace mitral regurgitation, moderate tricuspid regurgitation with moderate pulmonary hypertension and mildly enlarged right atrium, and trace pulmonic regurgitation. - Has been rate controlled overnight - Continue with rate / rhythm control with amiodarone (switched to 200 mg daily 08/17/19) and digoxin - Do not use beta blockers or calcium channel blockers because they make her hypotensive - Digoxin level 08/12/19: 1.5, digoxin level 08/16/19: 1.8 - c/w full anticoagulation with Xarelto Acute delirium on mild dementia, improving - Patient likely has baseline level of mild dementia - Has been very confused while inpatient post-operatively, but continues to be lucid since 08/16/19 - Continue to reduce sensory impairments, ensuring proper sleep patterns, encouraging adequate nutrition/hydration (IVF running 80 mL's per hour, ensure 3 times a day with meals) - c/w Seroquel 50 mg daily at bedtime; Haldol as needed for agitation and confusion (has not been needed since 08/13/19) Leukocytosis - She was started on empiric antibiotic treatment 08/11/2019 for a leukocytosis of 17,300. CT of the pelvis showed a small seroma at the incision site of the right hip measuring 2.3 x 3.4 x 4.4 cm, typical postoperative finding versus infection/cellulitis. Right medullary julio césar and screw fixation is in good position. 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 - Vancomycin and Zosyn 08/11/19-08/14/19 - May be multifactorial (including stress reaction from recent fall, surgery, and A. fib with RVR) - Currently on ceftriaxone 1 g every 24 hours (started 08/15/19) - CRP is decreasing (had increased slightly on 08/16/19) - MRSA screen positive, however the patient has been afebrile during her hospital stay - Blood cultures show no growth at 5 days - Still does not have clinical signs of infection - Pro calcitonin 0.12 (less likely infection) - Peripheral smear showed leukocytosis with neutrophilia, monocytosis, and mild lymphopenia which is likely reactive, no blast forms identified. - CT chest/abdomen/pelvis: No acute infiltrate on a chest CT, no acute intra-ab dominal abnormality. Mild distention of the urinary bladder with a small quantity of air, 3 mm intrarenal calculus without obstruction in the left mid kidney. - Ultrasound of the right thigh showed hematoma/seroma adjacent to femoral head, some subcutaneous edema - Plan to DC antibiotics with resolution of leukocytosis Acute kidney injury, creatinine increased to 1.61 this morning - FENa calculated 08/15/19 to 2.1%, indicating intrinsic disease. - May be multifactorial: Hypoperfusion to the kidney related to her atrial fibrillation and hypertension, recent IV contrast use (which should resolve in a few days), potential nephrotoxic medications - Encourage adequate nutrition and hydration - Dr. Thibodeaux from nephrology consulted, appreciate his assistance Osteoporosis - Will likely require Calcium / Vitamin D supplementation - Will have outpatient follow up with PCP for possible DEXA scan COPD - Currently patient has no evidence of exacerbation - s/p Prednisone - c/w Inhaled therapy as ordered Constipation - c/w Bowel regimen as ordered DVT prophylaxis - c/w full anticoagulation as per orthopedic team Difficulty swallowing: Speech therapy workup has been negative Disposition: - Patient will likely will need subacute rehabilitation; DC in 48-72 hours p ending rate control with amiodarone and digoxin, stable kidney function, improving leukocytosis VS,Fishbone, I+O VS, Fishbone, I+O Laboratory Tests 08/17/19 06:13 Vital Signs Date Time Temp Pulse Resp B/P (MAP) Pulse Ox O2 Delivery O2 Flow Rate FiO2 08/17/19 09:39 72 08/17/19 06:00 96.8 20 138/68 (91) 96 Nasal Cannula 2.0 I&O- Last 24 Hours up to 6 AM 08/17/19 06:00 Intake Total 410 ml Output Total 0 ml Balance 410 ml GME ATTESTATION GME ATTESTATION My faculty preceptor for this patient encounter was physically present during the encounter and was fully available. All aspects of the patient interview, examination, medical decision making process, and medical care plan development were reviewed and approved by the faculty preceptor. The faculty preceptor is aware and concurs with the plan as stated in the body of this note and will attest to such by his/her cosignature. STARR MAGALLANES D.O. Aug 17, 2019 10:20
[2019-08-17 14:00] VITALS: BP 128/64
[2019-08-17] MEDS: RIVAROXABAN 15 MG TAB (XARELTO) PO SCH (17:50)
[2019-08-17 22:00] VITALS: BP 120/56
[2019-08-18 06:00] VITALS: BP 105/67
[2019-08-18 06:39] LABS: BASO % 0.3 % (0.0-1.0); EOS # 0.1 10^3/uL (0.0-0.5); EOS % 0.9 % (0.0-3.0); HEMATOCRIT 28.5 % (36.0-47.0); HEMOGLOBIN 8.9 g/dl (12.0-15.5); LYMPH % 8.5 % (24.0-44.0); MEAN CORPUSCULAR HEMOGLOBIN 33.1 pg (27.0-33.0); MEAN CORPUSCULAR HGB CONC 31.2 g/dl (32.0-36.5); MEAN CORPUSCULAR VOLUME 105.9 fl (80.0-96.0); MONO # 1.5 10^3/uL (0.0-0.8); MONO % 13.1 % (0.0-5.0); NEUTROPHILS % 76.7 % (36.0-66.0); PLATELET COUNT, AUTOMATED 348 10^3/uL (150-450); RED BLOOD COUNT 2.69 10^6/uL (4.00-5.40); WHITE BLOOD COUNT 11.7 10^3/uL (4.0-10.0)
[2019-08-18 06:53] LABS: CALCIUM LEVEL 8.5 MG/DL (8.8-10.2); CREATININE FOR GFR 1.43 MG/DL (0.55-1.30); MAGNESIUM LEVEL 2.1 MG/DL (1.8-2.4); POTASSIUM SERUM 3.5 MEQ/L (3.5-5.1)
[2019-08-18] MEDS: SLF 3 ML SYR IV SCH ×3 (06:57→21:21)
[2019-08-18] MEDS: DIGOXIN 0.125 MG TAB PO SCH (09:51)
[2019-08-18] MEDS: QUEtiapine FUMARATE 25 MG TAB PO SCH ×2 (09:51→21:21)
[2019-08-18] MEDS: AMIODARONE 200 MG TAB (PACERONE) PO SCH (09:51)
--- NOTE | 2019-08-18 09:54 | IPN ---
DATE: 08/17/2019 Mrs. Corea is seen on her bedside this morning. She is feeling about the same and denies any fever or chills. She does have chronic dyspnea and hypoxemia and has been on oxygen even at home. She is still very frail and weak. PHYSICAL EXAMINATION Temperature 96.8 degrees Fahrenheit, heart rate 72 per minute and respiratory rate 20 per minute. Blood pressure 128/64 mmHg and oxygen saturation 97% on 2 liters oxygen. Intake and output records from yesterday are inaccurate. Her head is atraumatic. Neck is supple and jugular venous distention (JVD) not abnormally elevated. Heart: Sounds are regular and lungs with bilateral basilar rales. Abdomen: Soft and nontender and extremities without any cyanosis or clubbing. Right-sided surgical dressing is intact where she had her hip surgery. Neurologically she is at her baseline mentation without a focal deficit. LABS: Today's labs show WBC count 13.6, hemoglobin 9.6 and hematocrit 29.5. Sodium 145, potassium 3.6, CO2 33, BUN 30 and creatinine 1.81. Calcium is 8.7 and C-reactive protein is 4.08. PROBLEMS: 1. Acute kidney injury superimposed on chronic kidney disease. Kidney function slightly worse compared with yesterday. No uremic symptoms and electrolytes are stable. I feel that she has contrast nephropathy as she did have a CT scan with IV contrast on August 11. She is currently not on any nephrotoxic medications. Her volume status is reasonably well-compensated. 2. Anemia. Her anemia is only slightly changed and at this point no urgent intervention is indicated. 3. Paroxysmal atrial fibrillation. She has been now in sinus rhythm on amiodarone and digoxin. 4. Hypoxemia; this is chronic and essentially unchanged. Her volume status is reasonably well-compensated. I will not give any diuretic today.
--- NOTE | 2019-08-18 10:00 | IPNPDOC ---
Text Note Date of Service The patient was seen on 08/18/19. NOTE Subjective: Patient seen and examined at the bedside. No acute overnight events reported. Complains of some irritation with her tongue. States she has had thrush in the past. Otherwise no new medical complaints. Objective: Vitals (See below) General: NAD, lying comfortably in bed, elderly, frail HEENT: NC/AT, EOMI Heart: +S1S2, irregularly irregular; no murmurs, gallops, or rubs Lungs: CTA B/L Abdomen: soft, NT, ND, +BS Extremities: trace peripheral edema Neuro: no gross focal deficits Psych: AAOx3 this morning A/P: 88yo female admitted for management of a right hip fracture, s/p right hip intramedullary nail/ORIF, complicated by acute delirium in the setting of mild dementia, new onset paroxysmal atrial fibrillation with RVR, and JEREL. #Right hip fracture - 2/2 Mechanical fall; s/p ORIF (POD #10) - s/p right hip intramedullary nail/ORIF - Pain medications and anticoagulation per orthopedics (tramadol 50 mg q4h PRN, morphine 1 mg q4h PRN) - c/w OT/PT - will need subacute rehabilitation #Paroxysmal atrial fibrillation - Dr. Garcia from cardiology consulted, appreciate his help - ECHO 08/09: normal left ventricular systolic function with some features of grade 2 left ventricular diastolic dysfunction, aortic valve sclerosis with trivial aortic stenosis and mild aortic regurgitation, mitral annulus calcification with trace mitral regurgitation, moderate tricuspid regurgitation with moderate pulmonary hypertension and mildly enlarged right atrium, and trace pulmonic regurgitation. - Has been rate controlled - Continue with rate / rhythm control with amiodarone (switched to 200 mg daily 08/17/19) and digoxin - Do not use beta blockers or calcium channel blockers because they make her hypotensive - anticoagulation with Xarelto #hypoxemia - she states she uses an oxygen concentrator at nights only at home - continue to wean O2 #Acute delirium on mild dementia - resolved - Patient likely has baseline level of mild dementia - Has been very confused while inpatient post-operatively, but continues to be lucid since 08/16/19 - Continue to reduce sensory impairments, ensuring proper sleep patterns, encouraging adequate nutrition/hydration - c/w Seroquel 50 mg daily at bedtime #Leukocytosis - improving - She was started on empiric antibiotic treatment 08/11/2019 for a leukocytosis of 17,300. CT of the pelvis showed a small seroma at the incision site of the right hip measuring 2.3 x 3.4 x 4.4 cm, typical postoperative finding versus in fection/cellulitis. Right medullary julio césar and screw fixation is in good position. 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 - Vancomycin and Zosyn 08/11/19-08/14/19 - May be multifactorial (including stress reaction from recent fall, surgery, and A. fib with RVR) - Currently on ceftriaxone 1 g every 24 hours (started 08/15/19) - CRP is decreasing (had increased slightly on 08/16/19) - MRSA screen positive, however the patient has been afebrile during her hospital stay - Blood cultures show no growth at 5 days - Still does not have clinical signs of infection - Pro calcitonin 0.12 (less likely infection) - Peripheral smear showed leukocytosis with neutrophilia, monocytosis, and mild lymphopenia which is likely reactive, no blast forms identified. - CT chest/abdomen/pelvis: No acute infiltrate on a chest CT, no acute intra- abdominal abnormality. Mild distention of the urinary bladder with a small quantity of air, 3 mm intrarenal calculus without obstruction in the left mid kidney. - Ultrasound of the right thigh showed hematoma/seroma adjacent to femoral head, some subcutaneous edema #JEREL - improving - follow as per nephrology - assistance appreciated - FENa calculated 08/15/19 to 2.1%, indicating intrinsic disease. - lilkely multifactorial: Hypoperfusion to the kidney related to her atrial fibrillation and hypertension, recent IV contrast use, potential nephrotoxic medications - Encourage adequate nutrition and hydration #Osteoporosis - outpatient follow up with PCP #COPD - Currently patient has no evidence of exacerbation - s/p Prednisone - c/w Inhaled therapy as ordered #Constipation - c/w Bowel regimen as ordered #DVT prophylaxis - c/w full anticoagulation as per orthopedic team #Difficulty swallowing: Speech therapy workup has been negative Disposition: - Patient will likely will need subacute rehabilitation; DC in 48-72 hours pending clinical improvement VS,Fishbone, I+O VS, Fishbone, I+O Laboratory Tests 08/18/19 06:13 Vital Signs Date Time Temp Pulse Resp B/P (MAP) Pulse Ox O2 Delivery O2 Flow Rate FiO2 08/18/19 06:00 98.4 98 20 105/67 (80) 99 Nasal Cannula 3.0 I&O- Last 24 Hours up to 6 AM 08/18/19 06:00 Intake Total 360 ml Output Total 0 ml Balance 360 ml JOSE RAMON CAGLE MD Aug 18, 2019 10:00
[2019-08-18] MEDS: NYSTATIN 500,000 U/5 ML SUSP UDC SS SCH ×3 (10:24→21:21)
[2019-08-18 14:00] VITALS: BP 121/52
[2019-08-18] MEDS: RIVAROXABAN 15 MG TAB (XARELTO) PO SCH (17:27)
[2019-08-18] MEDS ORDERED: POTASSIUM CHLORIDE 10 MEQ SR TABLET PO ONE (19:00)
[2019-08-18 22:00] VITALS: BP 129/65
[2019-08-19] MEDS: SLF 3 ML SYR IV SCH ×3 (05:47→20:25)
[2019-08-19 06:00] VITALS: BP 134/78
[2019-08-19 06:18] LABS: BASO % 0.2 % (0.0-1.0); EOS # 0.3 10^3/uL (0.0-0.5); EOS % 2.1 % (0.0-3.0); HEMATOCRIT 29.1 % (36.0-47.0); LYMPH # 1.2 10^3/uL (1.5-5.0); LYMPH % 8.6 % (24.0-44.0); MEAN CORPUSCULAR HEMOGLOBIN 32.8 pg (27.0-33.0); MEAN CORPUSCULAR HGB CONC 30.9 g/dl (32.0-36.5); MEAN CORPUSCULAR VOLUME 106.2 fl (80.0-96.0); MONO # 1.6 10^3/uL (0.0-0.8); MONO % 11.9 % (0.0-5.0); NEUTROPHILS # 10.3 10^3/uL (1.5-8.5); NEUTROPHILS % 76.5 % (36.0-66.0); PLATELET COUNT, AUTOMATED 364 10^3/uL (150-450); RED BLOOD COUNT 2.74 10^6/uL (4.00-5.40); WHITE BLOOD COUNT 13.4 10^3/uL (4.0-10.0)
[2019-08-19 06:36] LABS: CALCIUM LEVEL 9.2 MG/DL (8.8-10.2); CREATININE FOR GFR 1.25 MG/DL (0.55-1.30); GLOMERULAR FILTRATION RATE 43.3 (>32); POTASSIUM SERUM 3.2 MEQ/L (3.5-5.1)
[2019-08-19] MEDS: POTASSIUM CHLORIDE 10% LIQ 20 MEQ/15 ML UDC PO ONE ×2 (08:00→09:08)
[2019-08-19] MEDS ORDERED: POTASSIUM CHLORIDE 10 MEQ SR TABLET PO ONE ×2 (08:15→09:30)
[2019-08-19] MEDS: AMIODARONE 200 MG TAB (PACERONE) PO SCH (09:07)
[2019-08-19] MEDS: DIGOXIN 0.125 MG TAB PO SCH (09:07)
[2019-08-19 09:08] VITALS: BP 126/53
[2019-08-19] MEDS: QUEtiapine FUMARATE 25 MG TAB PO SCH (09:08)
[2019-08-19] MEDS: NYSTATIN 500,000 U/5 ML SUSP UDC SS SCH ×3 (09:08→20:24)
[2019-08-19] MEDS ORDERED: AMIO200T PO (12:29)
[2019-08-19] MEDS ORDERED: XARE15TA PO (12:29)
[2019-08-19] MEDS ORDERED: ONDA4TAB5 PO (12:29)
[2019-08-19] MEDS ORDERED: DIGO0.123 PO (12:29)
[2019-08-19 14:00] VITALS: BP 138/77
[2019-08-19] MEDS ORDERED: BISACODYL 5 MG TAB PO PRN (14:30)
--- NOTE | 2019-08-19 15:37 | IPNPDOC ---
Date Seen The patient was seen on 08/19/19. Progress Note Subjective: 88-year-old female who was admitted for management of right hip fracture with ORIF, admission complicated by acute delirium, atrial fibrillation with RVR, and JEREL Patient states overall she is feeling well today. She is encouraged by the fact she was able to bear weight on her right leg with physical therapy for the first time yesterday. She states she does still have some right hip pain which has been fairly well controlled. She denies any chest pain, shortness of breath, palpitations, nausea/vomiting, or lightheadedness. She states her swallowing seems to be improved today. Objective: Vitals: See below GENERAL: Alert, comfortable, in no acute distress HEENT: Normocephalic, atraumatic, moist mucous membranes NECK: trachea midline, no JVD CARDIOVASCULAR: Regular rate and rhythm. Normal S1 and S2. III/ systolic ejection murmur RESPIRATORY: Clear to auscultation bilaterally with equal air entry bilaterally. No wheezing, rhonchi, or rales. ABDOMEN: Soft, nontender, nondistended, bowel sounds present, no masses or hepatosplenomegaly appreciated EXTREMITIES: Right lower extremity with nonpitting edema, no edema in the left lower extremity. No cyanosis. Pulses 2+/4 in bilateral upper and lower extremities NEUROLOGIC: Alert and oriented to person, place and month. Cranial nerves 2-12 grossly intact. No focal deficits appreciated PSYCHIATRIC: Mood and affect appropriate Assessment/plan: 88-year-old female admitted for management of a right hip fracture. Postop day #10 status post right hip intramedullary nail/open reduction internal fixation, complicated by acute delirium in the setting of mild dementia, new onset paroxysmal atrial fibrillation with RVR, and JEREL. #Right hip fracture - 2/2 Mechanical fall; s/p ORIF (POD #10) - s/p right hip intramedullary nail/open reduction internal fixation - Pain medications and anticoagulation per orthopedics: Continue with current regimen of tramadol 50 mg every 4 hours when necessary, morphine decreased to 1 mg every 4 hours when necessary due to her renal function - c/w OT/PT - will need subacute rehabilitation #Paroxysmal atrial fibrillation - Dr. Garcia from cardiology consulted, appreciate his help - ECHO 08/09: normal left ventricular systolic function with some features of grade 2 left ventricular diastolic dysfunction, aortic valve sclerosis with trivial aortic stenosis and mild aortic regurgitation, mitral annulus calcification with trace mitral regurgitation, moderate tricuspid regurgitation with moderate pulmonary hypertension and mildly enlarged right atrium, and trace pulmonic regurgitation. - Continue with rate / rhythm control with amiodarone and digoxin - Avoid beta blockers or calcium channel blockers due to hypotension with these agents - Digoxin level 08/12/19: 1.5, digoxin level 08/16/19: 1.8 - c/w full anticoagulation with Xarelto #Acute delirium on mild dementia, improving - Patient likely has baseline level of mild dementia - Has been very confused while inpatient post-operatively, but continues to be lucid since 08/16/19 - Continue to reduce sensory impairments, ensuring proper sleep patterns, encouraging adequate nutrition/hydration (IVF running 80 mL's per hour, ensure 3 times a day with meals) - Continue Seroquel 50 mg daily at bedtime #Leukocytosis - May be multifactorial (including stress reaction from recent fall, surgery, and A. fib with RVR), no clear evidence of infection - started on empiric antibiotic treatment 08/11/2019 for a leukocytosis of 17 ,300. - Vancomycin and Zosyn 08/11/19-08/14/19 switched to ceftriaxone 08/15/19- 08/16/2019 for 5 days total of abx coverage - CT of the pelvis showed a small seroma at the incision site of the right hip measuring 2.3 x 3.4 x 4.4 cm, typical postoperative finding versus infection/cellulitis. Right medullary julio césar and screw fixation is in good position. 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 - CT chest/abdomen/pelvis: No acute infiltrate on a chest CT, no acute intra- abdominal abnormality. Mild distention of the urinary bladder with a small q uantity of air, 3 mm intrarenal calculus without obstruction in the left mid kidney. - Ultrasound of the right thigh showed hematoma/seroma adjacent to femoral head, some subcutaneous edema - MRSA screen positive, however the patient has been afebrile during her hospital stay. Blood cultures show no growth at 5 days, Pro calcitonin 0.12 - Peripheral smear showed leukocytosis with neutrophilia, monocytosis, and mild lymphopenia which is likely reactive, no blast forms identified. #Acute kidney injury, improved - FENa calculated 08/15/19 to 2.1%, indicating intrinsic disease. - May be multifactorial: Hypoperfusion to the kidney related to her atrial fibrillation and hypertension, recent IV contrast use, potential nephrotoxic medications - Encourage adequate nutrition and hydration - Dr. Thibodeaux from nephrology consulted, appreciate his assistance #Osteoporosis - Will likely require Calcium / Vitamin D supplementation - Will have outpatient follow up with PCP for possible DEXA scan #COPD - Currently patient has no evidence of exacerbation - s/p Prednisone - continue Inhaled therapy as ordered #Constipation - continue Bowel regimen as ordered #Dysphagia - Speech therapy workup has been negative DVT prophylaxis - c/w full anticoagulation with Xaralto for a fib Disposition: likely d/c to rehab unit tomorrow morning VS, I&O, 24H, Fishbone Vital Signs/I&O Vital Signs Date Time Temp Pulse Resp B/P (MAP) Pulse Ox O2 Delivery O2 Flow Rate FiO2 08/19/19 14:00 98.7 70 17 138/77 (97) 18 Nasal Cannula 3.0 I&O- Last 24 Hours up to 6 AM 08/19/19 06:00 Intake Total 560 ml Output Total 325 ml Balance 235 ml Laboratory Data 24H LABS Laboratory Tests 2 08/19/19 05:37: Immature Granulocyte % (Auto) 0.7, Neutrophils (%) (Auto) 76.5H, Lymphocytes (%) (Auto) 8.6L, Monocytes (%) (Auto) 11.9H, Eosinophils (%) (Auto) 2.1, Basophils (%) (Auto) 0.2, Neutrophils # (Auto) 10.3H, Lymphocytes # (Auto) 1.2L, Monocytes # (Auto) 1.6H, Eosinophils # (Auto) 0.3, Basophils # (Auto) 0.0, Nucleated Red Blood Cells % (auto) 0.0, Anion Gap 5L, Glomerular Filtration Rate 43.3, Calcium Level 9.2, Magnesium Level 2.0 CBC/BMP Laboratory Tests 08/19/19 05:37 Microbiology Microbiology 08/15/19 Urine Culture - Final, Complete Yeast Like Organism 08/11/19 Blood Culture - Final, Complete NO GROWTH AFTER 5 DAYS 08/11/19 Blood Culture - Final, Complete NO GROWTH AFTER 5 DAYS GME ATTESTATION GME ATTESTATION My faculty preceptor for this patient encounter was physically present during the encounter and was fully available. All aspects of the patient interview, examination, medical decision making process, and medical care plan development were reviewed and approved by the faculty preceptor. The faculty preceptor is aware and concurs with the plan as stated in the body of this note and will attest to such by his/her cosignature. ATTENDING NOTE Patient was seen and examined by me this morning with the residents. Agree with the above assessment and plan NIKOLAI TRAN D.O. Aug 19, 2019 15:37 JOSEFINA AGUIAR MD Aug 21, 2019 08:47
[2019-08-19] MEDS: RIVAROXABAN 15 MG TAB (XARELTO) PO SCH (17:47)
--- NOTE | 2019-08-19 19:34 | IPN ---
DATE: 08/18/2019 Mrs. Corea is seen this morning on her bedside. She is feeling about the same and remains frail and weak. She denies any nausea or vomiting. She has been chronically short of breath on oxygen via nasal cannula. PHYSICAL EXAMINATION: Temperature 98.4 degrees Fahrenheit, heart rate 74 per minute and respiratory rate 20 per minute. Blood pressure 105/67 mmHg and oxygen saturation 99% on three liters of oxygen. Head is atraumatic. Neck is supple and without jugular venous distention (JVD) or thyroid enlargement. Heart sounds are regular. Lungs with few basilar rales at the bases. Abdomen is soft and nontender and bowel sounds are normal. Extremities without any cyanosis or clubbing. Neurologically, she is at about her baseline mentation. LABORATORY DATA: Today's laboratories show WBC count down to 11.7, hemoglobin 8.9 and hematocrit 28.5. Sodium 146, potassium 3.5, CO2 32, BUN 30 and creatinine 1.43. PROBLEMS: 1. Acute kidney injury. Kidney function has some improvement over the last 24 hours. She is not receiving any nephrotoxic medications and no diuretic. Most likely, her acute kidney injury was related to contrast nephropathy. 2. Hypernatremia. She has mild hypernatremia and we will watch it at this point without any IV fluids. She has reasonable oral intake and does not have any daily diuretic. We are using diuretic only on as-needed basis. 3. Hypokalemia. Her potassium level is borderline and I will give her one dose of potassium chloride 20 mEq and recheck her renal profile tomorrow morning. All other issues are being addressed by the hospitalist service.
[2019-08-19 20:00] VITALS: BP 135/69
[2019-08-19] MEDS: ACETAMINOPHEN 500 MG TAB PO PRN (20:25)
[2019-08-19] MEDS: QUEtiapine FUMARATE 50 MG TAB PO SCH (20:25)
[2019-08-20 06:07] VITALS: BP 137/70
[2019-08-20 08:07] LABS: HEMATOCRIT 29.8 % (36.0-47.0); HEMOGLOBIN 9.4 g/dl (12.0-15.5); MEAN CORPUSCULAR HEMOGLOBIN 33.2 pg (27.0-33.0); MEAN CORPUSCULAR HGB CONC 31.5 g/dl (32.0-36.5); MEAN CORPUSCULAR VOLUME 105.3 fl (80.0-96.0); PLATELET COUNT, AUTOMATED 382 10^3/uL (150-450); RED BLOOD COUNT 2.83 10^6/uL (4.00-5.40); WHITE BLOOD COUNT 13.2 10^3/uL (4.0-10.0)
[2019-08-20 08:26] LABS: ALBUMIN 2.9 GM/DL (3.2-5.2); CALCIUM LEVEL 8.7 MG/DL (8.8-10.2); CREATININE FOR GFR 1.16 MG/DL (0.55-1.30); GLOMERULAR FILTRATION RATE 47.2 (>32)
[2019-08-20] MEDS: AMIODARONE 200 MG TAB (PACERONE) PO SCH (08:46)
[2019-08-20] MEDS: QUEtiapine FUMARATE 50 MG TAB PO SCH (08:46)
[2019-08-20] MEDS: DIGOXIN 0.125 MG TAB PO SCH (08:47)
[2019-08-20] MEDS: NYSTATIN 500,000 U/5 ML SUSP UDC SS SCH (08:47)
--- NOTE | 2019-08-20 09:31 | IPN ---
DATE OF VISIT: 08/19/2019 Mrs. Corea is seen this morning on her bedside. She is feeling about the same. She has difficulty swallowing pills and did vomit after taking her liquid potassium this morning. She denies any fever or chills. She does have chronic hypoxemia and remains on oxygen. She had contrast nephropathy with acute renal failure which is now gradually improving. On physical examination, temperature 99 degrees Fahrenheit, heart rate 66 per minute and respiratory rate 18 per minute. Blood pressure 126/53 mmHg and oxygen saturation 95% on 3 liters oxygen. Head is atraumatic. Neck is supple and without jugular venous distention (JVD or thyroid enlargement. Heart sounds are irregular in rhythm and lungs with a few basilar crepitations. Abdomen: Soft and nontender. Bowel sounds are normal. Extremities: Without any cyanosis or clubbing. Neurologically, she is at her baseline mentation without a focal deficit. Today's labs show WBC count 13.4, hemoglobin 9.0 and hematocrit 29.1. Sodium 146, potassium 3.2, chloride 103, CO2 38, BUN 29 and creatinine 1.25. PROBLEMS: 1. Acute kidney injury superimposed on chronic kidney disease. Kidney function has improved further since yesterday. She has good urine output and her renal profile will be repeated again tomorrow. 2. Hypernatremia. This is mild and likely to improve. Her oral intake has not been great. Electrolytes should be checked on a daily basis. 3. Hypokalemia. She has difficulty swallowing with potassium pills and also had difficulty with liquid potassium chloride. She has been given the correct potassium chloride pills in applesauce and ice cream and we will see how her potassium level comes back tomorrow. She is being encouraged for high-protein diet with orange juice and banana. 4. Anemia. At present, her anemia is stable and does not need any urgent intervention.
[2019-08-20] MEDS: ACETAMINOPHEN 500 MG TAB PO PRN (10:58)
[2019-08-20] MEDS ORDERED: POTASSIUM CHLORIDE 10 MEQ SR TABLET PO ONE (11:00)
--- NOTE | 2019-08-20 13:49 | DS.PDOC ---
Discharge Summary General Date of Admission Aug 07, 2019 at 02:58 Date of Discharge 08/20/2019 Attending Physician: JOSEFINA AGUIAR MD Specialist/Consultants Involve: Camilo Garcia Specialist/Consultants Involve Alex Thibodeaux MD, Scott MD Discharge Summary PROCEDURES PERFORMED DURING STAY: Right hip ORIF ADMITTING DIAGNOSES: 1. Right hip fracture due to mechanical fall. 2. Osteoporosis. 3. Chronic COPD, stable DISCHARGE DIAGNOSES: 1. Right hip fracture due to mechanical fall. 2. Osteoporosis. 3. Chronic COPD, stable. 4. Atrial fibrillation, rate controlled and on anticoagulation COMPLICATIONS/CHIEF COMPLAINT: Hip Fracture, Right. HISTORY OF PRESENT ILLNESS: 88-year-old female who presented to the emergency department after a mechanical fall when trying to get out of bed in the morning after waking up. The patient does report a history of frequent falls and does not use any cane or walker at home to ambulate. She denied any dizziness or lightheadedness prior to the fall. She denied feeling short of breath or feeling that her COPD may be exacerbated. HOSPITAL COURSE: In the emergency department, evaluation was significant for right intertrochanteric hip fracture. Orthopedic surgery was consult and the patient was found to be a good surgical candidate for internal fixation with Dr. Reagan. Postoperatively, the patient experienced some hallucinations and acute delirium. This was managed with redirection, Seroquel at night, and Haldol prn. She also was found to be in atrial fibrillation with RVR on the night following her procedure. She was initially treated with metoprolol without adequate rate control. She was then additionally started on digoxin, but she continued to have tachycardia. At that point, the metoprolol was discontinued and she was started on diltiazem. However, she began to experience hypotension and was unable to tolerate the diltiazem. At that point, cardiology was consult it and the patient was started on loading dose of amiodarone. Once she was stable in sinus rhythm without breakthrough atrial fibrillation with RVR, the patient was continued on once daily dosing of amiodarone in addition to the digoxin. She was also started on Xarelto for anticoagulation. The patient did develop a leukocytosis during her admission which was thought to be reactive, and no source of infection was identified. The patient also developed an acute kidney injury which may have been related to hypoperfusion secondary to her atrial fibrillation and hypertension, recent IV contrast use, and potential nephrotoxic medications. This improved with hydration. The patient also developed dysphagia and was evaluated by speech therapy who did not find any abnormalities. Her dysphasia did subsequently improve with taking small sips of fluids in small bites of food. On day of discharge, patient was found to be stable and safe for discharge to rehabilitation unit. DISCHARGE MEDICATIONS: Please see below. ALLERGIES: Please see below. PHYSICAL EXAMINATION ON DISCHARGE: VITAL SIGNS: Please see below. GENERAL: Alert, comfortable, in no acute distress HEENT: Normocephalic, atraumatic, PERRLA, EOMI, moist mucous membranes NECK: Supple, trachea midline, no lymphadenopathy, no JVD CARDIOVASCULAR: Regular rate and rhythm. Normal S1 and S2. III/ systolic ejection murmur RESPIRATORY: Clear to auscultation bilaterally with equal air entry bilaterally. No wheezing, rhonchi, or rales. ABDOMEN: Soft, nontender, nondistended, bowel sounds present, no masses or hepatosplenomegaly appreciated EXTREMITIES: Right lower extremity with nonpitting edema, no edema in the left lower extremity. No cyanosis. Pulses 2+/4 in bilateral upper and lower extremities NEUROLOGIC: Alert and oriented to person, place and month. Cranial nerves 2-12 grossly intact. No focal deficits appreciated PSYCHIATRIC: Mood and affect appropriate LABORATORY DATA: Please see below. IMAGING: (Impressions per radiologist report) Hip/pelvis XR 08/07: Intertrochanteric fracture of the right femur. Femur XR 08/07: Intertrochanteric fracture of the proximal femur noted on hip series. No further acute fracture or dislocation. Chest XR 08/07: No acute cardiopulmonary process appreciated. CXR 08/09: No acute cardiopulmonary process. CXR 08/11: Evidence of COPD. Bilateral upper lobe scarring. No significant interval change. Hip XR 08/11: Displacement of the lesser trochanter from the original fracture is again seen; however, the alignment of the major fragments is much more anatomic Pelvis CT 08/11: 1. The hardware appears to be in good position. There is a small seroma overlying the right hip superiorly which is a typical postoperative finding although infection of the fluid collection cannot be entirely excluded. 2. There is edema and/or inflammation along the medial upper thigh particularly along the gracilis which may have been injured at time of patient's fall. CXR 08/11: 1. Advanced COPD with emphysematous changes, fibrosis, apical pleuroparenchymal scarring and some pulmonary artery hypertension. 2. No gross cardiomegaly, chris edema, definite effusion or acute infiltrate. Chest CT 08/15: Hyperinflation, emphysematous change COPD pattern. Very small bilateral pleural effusions. No acute infiltrate. Abdomen/pelvis CT 08/15: No acute intra-abdominal abnormality. Mild distension of the urinary bladder. 3 mm intrarenal calculus left mid kidney. There is a small quantity of air in the mildly distended urinary bladder. Recent pinning right hip fracture. Extremity U/S 08/16: Findings consistent with a small hematoma or seroma in the deep soft tissues adjacent to the femoral head. PROGNOSIS: Fair ACTIVITY: Per PT/OT while at rehab DIET: 2 gram sodium restriction DISCHARGE PLAN: To rehab DISCHARGE INSTRUCTIONS: 1. Follow-up with Dr. Reagan in 2 weeks 2. Follow-up with PCP in 7-10 days. 3. Continue with inpatient rehab until cleared for discharge home. ITEMS TO FOLLOWUP ON ON OUTPATIENT: 1. Right hip fracture s/p ORIF with Dr. Reagan 2. New onset atrial fibrillation, rate controlled on amiodarone and digoxin, on full anticoagulation with Xaralto 3. JEREL which improved s/p hydration DISCHARGE CONDITION: Stable. TIME SPENT ON DISCHARGE: Greater than 35 minutes. Vital Signs/I&Os Vital Signs Date Time Temp Pulse Resp B/P (MAP) Pulse Ox O2 Delivery O2 Flow Rate FiO2 08/20/19 08:47 76 08/20/19 08:00 2.0 08/20/19 06:07 97.6 20 137/70 (92) 96 Room Air I&O- Last 24 Hours up to 6 AM 08/20/19 06:00 Intake Total 1480 ml Output Total 0 ml Balance 1480 ml Laboratory Data Labs 24H Laboratory Tests 2 08/20/19 07:47: Nucleated Red Blood Cells % (auto) 0.0, Anion Gap 3L, Glomerular Filtration Rate 47.2, Calcium Level 8.7L, Phosphorus Level 2.0L, Albumin 2.9L CBC/BMP Laboratory Tests 08/20/19 07:47 Microbiology Microbiology 08/15/19 Urine Culture - Final, Complete Yeast Like Organism 08/11/19 Blood Culture - Final, Complete NO GROWTH AFTER 5 DAYS 08/11/19 Blood Culture - Final, Complete NO GROWTH AFTER 5 DAYS Discharge Medications Scheduled Amiodarone HCl (Amiodarone HCl) 200 Mg Tablet, 200 MG PO DAILY Digoxin (Digoxin) 125 Mcg Tablet, 0.125 MG PO DAILY Multivitamins (Child Chew Vitamin) 1 Each Tab.chew, 1 TAB PO DAILY, (Reported) Rivaroxaban (Xarelto) 15 Mg Tablet, 15 MG PO DAILY@18 Umeclidinium Brm/Vilanterol Tr (Anoro Ellipta 62.5-25 Mcg INH) 1 Each Blst.w.dev, 1 PUFF INH DAILY, (Reported) Scheduled PRN Albuterol Sulfate (Proair Hfa) 8.5 Gm Hfa.aer.ad, 2 PUFF INH QID PRN for SHORTNESS OF BREATH, (Reported) Ibuprofen/Diphenhydramine Cit (Advil Pm Caplet) 1 Each Tablet, 2 TAB PO QHS PRN for PAIN/SLEEP, (Reported) Ondansetron HCl (Ondansetron HCl) 4 Mg Tablet, 4 MG PO Q8HP PRN for NAUSEA Tramadol HCl (Tramadol HCl) 50 Mg Tablet, 1-2 TAB PO Q4H PRN for PAIN Allergies Coded Allergies: codeine (Verified Allergy, Unknown, 08/07/19) GME ATTESTATION GME ATTESTATION My faculty preceptor for this patient encounter was physically present during the encounter and was fully available. All aspects of the patient interview, examination, medical decision making process, and medical care plan development were reviewed and approved by the faculty preceptor. The faculty preceptor is aware and concurs with the plan as stated in the body of this note and will attest to such by his/her cosignature. ATTENDING NOTE Patient was seen and examined by me this morning with the residents. Agree with the above assessment and plan NIKOLAI TRAN D.O. Aug 20, 2019 13:49 JOSEFINA AGUIAR MD Aug 21, 2019 08:50
--- NOTE | 2019-08-20 18:49 | IPN ---
DATE: 08/20/2019 Mrs. Corea is seen this morning on her bedside. She remains frail and weak but no new issues. She denies any nausea or vomiting. She remains chronically short of breath and is on oxygen. PHYSICAL EXAMINATION: Temperature 97.6 degrees Fahrenheit, heart rate 80 per minute and respiratory rate 20 per minute. Blood pressure 137/70 mmHg and oxygen saturation 96% on room air. Head is atraumatic. Neck is supple and jugular venous distention (JVD) is not abnormally elevated. Heart sounds are regular in rhythm. Lungs with bilateral coarse crepitations at bases. Abdomen is soft and nontender and bowel sounds normal. Extremities without any cyanosis or clubbing. LABORATORY DATA: Today's laboratories show WBC count 13.2, hemoglobin 9.4 and hematocrit 29.8. Sodium 146, potassium 3.0, BUN 30 and creatinine 1.16. Calcium is 8.7 and phosphorus 2.0. Albumin 2.9. Sodium level is 146 today. PROBLEMS: 1. Acute kidney injury superimposed on chronic kidney disease. Kidney function has improved almost back to baseline. She most likely had contrast nephropathy causing her acute renal failure. 2. Hypokalemia. Potassium level continues to worsen despite the supplement. She has difficulty swallowing potassium chloride pills and did not tolerate the liquid potassium chloride. We will give her one more dose of potassium chloride 40 mEq today. I have advised the nursing staff to dissolve the tablets in ice cream and see if she can swallow it that way. 3. Hypernatremia. Mild hypernatremia has been unchanged for three days. The patient needs to increase her oral intake of fluids. All of her other chronic issues are unchanged. From a renal standpoint, the patient is doing well and does not need daily followup. I am signing off her case. Please do not hesitate to call me back should you need any further assistance.
[2019-08-21] MEDS ORDERED: POTASSIUM CHLORIDE 10 MEQ SR TABLET PO SCH (09:00)
== END 2019-08-20 13:04 | DRG 481 ==
LOC: EDBD 01:29 → M ED 01:29 → M ED INP 02:58 → M MS5PR 04:01 → M PCU 08-08 22:32 → M MSPAV 08-16 16:16 → M MS5PR 08-19 18:37
PROVIDERS: ADMIT Internal Medicine; ATTEND Internal Medicine
PROC: 0QS606Z Reposition Right Upper Femur with Intramedullary Internal Fixation Device, Open Approach (ICD-10-PCS; principal; 2019-08-08 11:00)
DX: S72.141A Displaced intertrochanteric fracture of right femur, initial encounter for closed fracture (principal); J96.10 Chronic respiratory failure, unspecified whether with hypoxia or hypercapnia; N17.9 Acute kidney failure, unspecified; E87.0 Hyperosmolality and hypernatremia; I50.30 Unspecified diastolic (congestive) heart failure; W06.XXXA Fall from bed, initial encounter; Y92.003 Bedroom of unspecified non-institutional (private) residence as the place of occurrence of the external cause; M81.0 Age-related osteoporosis without current pathological fracture; R41.0 Disorientation, unspecified; I48.0 Paroxysmal atrial fibrillation; I36.1 Nonrheumatic tricuspid (valve) insufficiency; E87.6 Hypokalemia; D72.829 Elevated white blood cell count, unspecified; K59.00 Constipation, unspecified; N14.2 Nephropathy induced by unspecified drug, medicament or biological substance; D64.9 Anemia, unspecified; I35.8 Other nonrheumatic aortic valve disorders; R13.10 Dysphagia, unspecified; F03.90 Unspecified dementia, unspecified severity, without behavioral disturbance, psychotic disturbance, mood disturbance, and anxiety; I27.20 Pulmonary hypertension, unspecified; J44.9 Chronic obstructive pulmonary disease, unspecified; Z99.81 Dependence on supplemental oxygen; Z79.52 Long term (current) use of systemic steroids; Z79.899 Other long term (current) drug therapy; Z88.5 Allergy status to narcotic agent; Z98.41 Cataract extraction status, right eye; Z98.42 Cataract extraction status, left eye

== ENCOUNTER → 2019-08-21 | Outpatient (REF) ==
[~2019-08-21] MED LIST changes: +ADVI200T17 PO; +AMIO200T PO; +DIGO0.123 PO; +ONDA4TAB5 PO; +TRAM50TA2 PO; +VITACHTA PO; +XARE10TA PO; +XARE15TA PO
[2019-08-21 08:47] LABS: CALCIUM LEVEL 8.8 MG/DL (8.8-10.2); CREATININE FOR GFR 1.15 MG/DL (0.55-1.30); GLOMERULAR FILTRATION RATE 47.6 (>32); POTASSIUM SERUM 3.3 MEQ/L (3.5-5.1)
== END ==
LOC: SKLAB2 10:35
PROVIDERS: ATTEND Internal Medicine
DX: E87.6 Hypokalemia (principal)

== ENCOUNTER → 2019-08-23 | Outpatient (REF) ==
[2019-08-23 08:02] LABS: BLOOD UREA NITROGEN 29 MG/DL (7-18); CALCIUM LEVEL 8.9 MG/DL (8.8-10.2); CARBON DIOXIDE LEVEL 38 MEQ/L (21-32); CHLORIDE LEVEL 99 MEQ/L (98-107); CREATININE FOR GFR 0.94 MG/DL (0.55-1.30); GLOMERULAR FILTRATION RATE > 60.0 (>32); GLUCOSE, FASTING 100 MG/DL (70-100); POTASSIUM SERUM 2.9 MEQ/L (3.5-5.1); SODIUM LEVEL 143 MEQ/L (136-145)
== END ==
LOC: SKLAB2 07:00
PROVIDERS: ATTEND Internal Medicine
DX: E87.6 Hypokalemia (principal)

== ENCOUNTER → 2019-08-26 | Outpatient (REF) ==
[2019-08-26 08:45] LABS: HEMATOCRIT 27.6 % (36.0-47.0); HEMOGLOBIN 8.7 g/dl (12.0-15.5); MEAN CORPUSCULAR HEMOGLOBIN 33.1 pg (27.0-33.0); MEAN CORPUSCULAR HGB CONC 31.5 g/dl (32.0-36.5); MEAN CORPUSCULAR VOLUME 104.9 fl (80.0-96.0); PLATELET COUNT, AUTOMATED 449 10^3/uL (150-450); RED BLOOD COUNT 2.63 10^6/uL (4.00-5.40); WHITE BLOOD COUNT 12.1 10^3/uL (4.0-10.0)
[2019-08-26 09:23] LABS: CALCIUM LEVEL 8.8 MG/DL (8.8-10.2); CREATININE FOR GFR 0.98 MG/DL (0.55-1.30); DIGOXIN LEVEL 2.7 NG/ML (0.5-2.0); FREE T4 1.13 NG/DL (0.76-1.46); GLOMERULAR FILTRATION RATE 57.3 (>32); THYROID STIMULATING HORMONE 8.14 uIU/ML (0.358-3.740)
== END ==
LOC: EEVIPCON → SKLAB2 07:00
PROVIDERS: ATTEND Internal Medicine
DX: D64.9 Anemia, unspecified (principal); I50.9 Heart failure, unspecified

== ENCOUNTER → 2019-09-02 | Outpatient (REF) ==
[2019-09-02 09:19] LABS: CALCIUM LEVEL 8.7 MG/DL (8.8-10.2); CREATININE FOR GFR 1.08 MG/DL (0.55-1.30); GLOMERULAR FILTRATION RATE 51.2 (>32); POTASSIUM SERUM 3.8 MEQ/L (3.5-5.1)
--- NOTE | 2019-09-03 07:14 | ECGEPIP ---
[facility] Test Date: 2019-09-02 Pat Name: DORA LEVY Department: Room: - Gender: Female Contact Lens Cutter: [facility] : [id number] Requested By: ARACELI MCKEON [facility] Order Number: [id number] Reading MD: Brennan Ortiz Measurements Intervals [place] Rate: 60 P: 76 ND: 136 QRS: 59 QRSD: 82 T: 56 QT: 378 QTc: 379 Interpretive Statements Normal sinus rhythm with somewhat short ND interval Delayed anterior R-wave progression Nonspecific repolarization abnormalities Compared to prior tracing of 08/10/2019, atrial fibrillation has resolved Electronically Signed on 09-03-2019 7:13:35 EST by Brennan Ortiz
== END ==
LOC: SKLAB2 08:21
PROVIDERS: ATTEND Internal Medicine
DX: R60.9 Edema, unspecified (principal)

== ENCOUNTER → 2019-09-02 | Outpatient (CLI) | payer MEDICARE ==
--- NOTE | 2019-09-02 11:27 | REP ---
Clinical: Postoperative right lower extremity pain and swelling . Technique: Fritz scale and color Doppler evaluation using linear high frequency transducer. Findings: Ultrasound examination of the right lower extremity deep venous structures from the common femoral vein to the popliteal vein demonstrates normal compressibility flow and wave patterns in response to respiration and augmentation. There is no evidence for deep venous thrombosis. Impression: No evidence for deep venous thrombosis. Electronically Signed by Stevie Patel MD 09/02/2019 11:19 A
== END ==
LOC: M RAD 10:34
PROVIDERS: ATTEND Nurse Practitioner Family
DX: R06.02 Shortness of breath (principal); R60.9 Edema, unspecified

== ENCOUNTER → 2019-09-03 | Outpatient (REF) ==
[2019-09-03 07:47] LABS: CALCIUM LEVEL 8.8 MG/DL (8.8-10.2); CREATININE FOR GFR 1.18 MG/DL (0.55-1.30); GLOMERULAR FILTRATION RATE 46.1 (>32)
--- NOTE | 2019-09-03 09:57 | REP ---
Clinical: Shortness of breath. Technique: PA and lateral. Comparison: 08/11/2019. Findings: Advanced COPD with bilateral hyperinflation. Mediastinum and cardiac silhouette are normal. No acute consolidation, effusion, or pneumothorax. Skeletal structures demonstrate age-related osteopenia. Impression: Advanced COPD. No focal consolidation or effusion. Electronically Signed by Stevie Patel MD 09/03/2019 09:49 A
== END ==
LOC: SKLAB2 07:32
PROVIDERS: ATTEND Internal Medicine
DX: R60.9 Edema, unspecified (principal); R06.02 Shortness of breath; J44.9 Chronic obstructive pulmonary disease, unspecified

== ENCOUNTER → 2019-09-05 | Outpatient (REF) ==
[2019-09-05 10:06] LABS: GLOMERULAR FILTRATION RATE 55.8 (>32); POTASSIUM SERUM 3.7 MEQ/L (3.5-5.1)
== END ==
LOC: SKLAB2 07:00
PROVIDERS: ATTEND Internal Medicine
DX: R60.9 Edema, unspecified (principal)

== ENCOUNTER → 2019-09-09 | Outpatient (REF) ==
--- NOTE | 2019-09-09 10:09 | REP ---
Right knee series: Two views. History: Pain after a fall. Findings: AP and lateral views of the right knee demonstrate medial and lateral chondrocalcinosis. There is an intramedullary julio césar in the distal femur on the right the bottom of which is seen at the top of the field of view. No fracture or subluxation is seen. Bones joints soft tissues are otherwise unremarkable. Impression: Chondrocalcinosis. Intermedullary julio césar in the distal femur. No acute disease. Electronically Signed by Jules Martin MD 09/09/2019 10:00 A
--- NOTE | 2019-09-09 10:09 | REP ---
Right ankle series: Two views. History: Pain after fall. Findings: AP and lateral views of the right ankle demonstrate diffuse moderate soft tissue swelling anteriorly laterally and medially. Ankle mortise is intact. No fractures seen. There is diffuse osteopenia. Impression: No fracture seen. Diffuse moderate soft tissue swelling about the ankle. Electronically Signed by Jules Martin MD 09/09/2019 10:00 A
== END ==
LOC: SKLAB2 09:07
PROVIDERS: ATTEND Nurse Practitioner Family
DX: M25.471 Effusion, right ankle (principal); M85.871 Other specified disorders of bone density and structure, right ankle and foot; M11.261 Other chondrocalcinosis, right knee; M25.571 Pain in right ankle and joints of right foot; M25.561 Pain in right knee

== ENCOUNTER → 2019-09-09 | Outpatient (REF) ==
[2019-09-09 13:54] LABS: HEMATOCRIT 34.1 % (36.0-47.0); HEMOGLOBIN 10.4 g/dl (12.0-15.5); MEAN CORPUSCULAR HEMOGLOBIN 33.2 pg (27.0-33.0); MEAN CORPUSCULAR HGB CONC 30.5 g/dl (32.0-36.5); MEAN CORPUSCULAR VOLUME 108.9 fl (80.0-96.0); PLATELET COUNT, AUTOMATED 339 10^3/uL (150-450); RED BLOOD COUNT 3.13 10^6/uL (4.00-5.40); WHITE BLOOD COUNT 10.1 10^3/uL (4.0-10.0)
[2019-09-09 14:12] LABS: BLOOD UREA NITROGEN 27 MG/DL (7-18); CALCIUM LEVEL 9.2 MG/DL (8.8-10.2); CARBON DIOXIDE LEVEL 31 MEQ/L (21-32); CHLORIDE LEVEL 98 MEQ/L (98-107); CREATININE FOR GFR 0.87 MG/DL (0.55-1.30); GLOMERULAR FILTRATION RATE > 60.0 (>32); GLUCOSE, FASTING 107 MG/DL (70-100); SODIUM LEVEL 138 MEQ/L (136-145)
== END ==
LOC: SKLAB2 10:00
PROVIDERS: ATTEND Internal Medicine
DX: R60.9 Edema, unspecified (principal)

== ENCOUNTER → 2019-09-16 | Outpatient (REF) ==
[~2019-09-16] MED LIST changes: +ONDA-83 PO; -ONDA4TAB5 PO
[2019-09-16 08:10] LABS: HEMATOCRIT 29.8 % (36.0-47.0); HEMOGLOBIN 9.3 g/dl (12.0-15.5); MEAN CORPUSCULAR HEMOGLOBIN 33.5 pg (27.0-33.0); MEAN CORPUSCULAR HGB CONC 31.2 g/dl (32.0-36.5); MEAN CORPUSCULAR VOLUME 107.2 fl (80.0-96.0); PLATELET COUNT, AUTOMATED 321 10^3/uL (150-450); RED BLOOD COUNT 2.78 10^6/uL (4.00-5.40)
== END ==
LOC: SKLAB2 07:30
PROVIDERS: ATTEND Internal Medicine
DX: Z79.01 Long term (current) use of anticoagulants (principal)

== ENCOUNTER → 2019-09-18 | Outpatient (REF) ==
[2019-09-18 10:06] LABS: HEMATOCRIT 29.5 % (36.0-47.0); HEMOGLOBIN 9.1 g/dl (12.0-15.5); MEAN CORPUSCULAR HEMOGLOBIN 33.7 pg (27.0-33.0); MEAN CORPUSCULAR HGB CONC 30.8 g/dl (32.0-36.5); MEAN CORPUSCULAR VOLUME 109.3 fl (80.0-96.0); PLATELET COUNT, AUTOMATED 360 10^3/uL (150-450); WHITE BLOOD COUNT 6.5 10^3/uL (4.0-10.0)
[2019-09-18 10:42] LABS: ALBUMIN 3.2 GM/DL (3.2-5.2); ALT/SGPT 17 U/L (12-78); BILIRUBIN,TOTAL 0.4 MG/DL (0.2-1.0); BLOOD UREA NITROGEN 21 MG/DL (7-18); CALCIUM LEVEL 9.3 MG/DL (8.8-10.2); CARBON DIOXIDE LEVEL 29 MEQ/L (21-32); CHLORIDE LEVEL 105 MEQ/L (98-107); CREATININE FOR GFR 0.78 MG/DL (0.55-1.30); GLOMERULAR FILTRATION RATE > 60.0 (>32); GLUCOSE, FASTING 113 MG/DL (70-100); POTASSIUM SERUM 4.4 MEQ/L (3.5-5.1); SODIUM LEVEL 140 MEQ/L (136-145); TOTAL PROTEIN 6.4 GM/DL (6.4-8.2)
[2019-09-18 11:10] LABS: VITAMIN B12 LEVEL 581 PG/ML (247-911)
== END ==
LOC: SKLAB2 09:09
PROVIDERS: ATTEND Internal Medicine
DX: R41.82 Altered mental status, unspecified (principal)

== ENCOUNTER → 2019-09-20 | Outpatient (REF) ==
[2019-09-20 07:44] LABS: BLOOD UREA NITROGEN 17 MG/DL (7-18); CALCIUM LEVEL 9.2 MG/DL (8.8-10.2); CARBON DIOXIDE LEVEL 32 MEQ/L (21-32); CHLORIDE LEVEL 101 MEQ/L (98-107); CREATININE FOR GFR 0.67 MG/DL (0.55-1.30); GLOMERULAR FILTRATION RATE > 60.0 (>32); GLUCOSE, FASTING 88 MG/DL (70-100); POTASSIUM SERUM 4.4 MEQ/L (3.5-5.1); SODIUM LEVEL 138 MEQ/L (136-145)
== END ==
LOC: SKLAB2 07:00
PROVIDERS: ATTEND Internal Medicine
DX: I50.9 Heart failure, unspecified (principal)

== ENCOUNTER → 2019-09-25 | Outpatient (REF) ==
[2019-09-25 07:16] LABS: HEMATOCRIT 30.4 % (36.0-47.0); HEMOGLOBIN 9.4 g/dl (12.0-15.5); MEAN CORPUSCULAR HEMOGLOBIN 33.5 pg (27.0-33.0); MEAN CORPUSCULAR HGB CONC 30.9 g/dl (32.0-36.5); MEAN CORPUSCULAR VOLUME 108.2 fl (80.0-96.0); PLATELET COUNT, AUTOMATED 427 10^3/uL (150-450); RED BLOOD COUNT 2.81 10^6/uL (4.00-5.40); WHITE BLOOD COUNT 6.7 10^3/uL (4.0-10.0)
== END ==
LOC: SKLAB2 07:30
PROVIDERS: ATTEND Internal Medicine
DX: D64.9 Anemia, unspecified (principal)